=== PATIENT | female | born 1950 | race Caucasian/White ===

== ENCOUNTER → 2019-11-10 11:41 | Outpatient (CLI) | payer MEDICARE, SELFPAY ==
--- NOTE | ~2019-11-10 | XR_ITS ---
XR lumbar spine 2-3V DATE: 11/10/2019 12:21 INDICATION: Low back pain. Osteoporosis. TECHNIQUE: Standing AP, lateral and coned lateral lumbosacral views COMPARISON: None FINDINGS: There is prominent diffuse osteopenia. There is levoscoliosis of the thoracolumbar spine. The included lower thoracic and lumbar pedicles are intact. No fracture or bone destruction is eviden t. Lumbar and lumbosacral interspaces appear relatively well preserved. The sacroiliac joints are intact. Bilateral iliac artery stents. IMPRESSION: Prominent osteopenia Levoscoliosis Reviewed, dictated and finalized at location B.
== END ==
DX: M54.5 Low back pain (principal); M81.0 Age-related osteoporosis without current pathological fracture; M85.88 Other specified disorders of bone density and structure, other site
CPT/HCPCS: 72100

== ENCOUNTER 2020-08-27 21:47 | Emergency (ER) | payer MEDICARE, SELFPAY ==
[2020-08-27] VITALS (8 sets, daily range): BP systolic 93–113; BP diastolic 56–73; PULSE 54–71; RESP 16–18; TEMP 36.4; O2SAT 98
--- NOTE | ~2020-08-27 | XR_ITS ---
EXAMINATION: XR chest 2V DATE: 08/27/2020 22:27 INDICATION: Weakness and confusion TECHNIQUE: AP and lateral views of the chest are obtained. COMPARISON: None available FINDINGS: The lungs are hyperinflated but free of acute opacities. There is no pleural effusion or pn eumothorax. The cardiomediastinal silhouette is normal. There is mild thoracic spondylosis. IMPRESSION: 1. No acute cardiopulmonary abnormality. Reviewed, dictated and finalized at location A.
--- NOTE | 2020-08-27 22:04 | ECG_ITS ---
Measurements Intervals [place] Rate: 64 P: 78 MD: 143 QRS: 70 QRSD: 85 T: 65 QT: 381 QTc: 394 Interpretive Statements SINUS RHYTHM BASELINE ARTIFACT- I, II, AVR, AVL NORMAL ECG Electronically Signed On 08-28-2020 6:01:20 CDT by Shai Garcia D.O.
[2020-08-27 22:22] LABS: Basophils Absolute Auto 0.1 K/mm3 (0.0-0.1); Basophils Percent Auto 0.9 % (0.2-1.2); Eosinophils Absolute Auto 0.2 K/mm3 (0-0.3); Eosinophils Percent Auto 3.1 % (0-4.4); Hemoglobin 14.3 g/dL (12.0-15.0); Immature Granulocyte Absolute 0.02 K/mm3 (0.00-0.031); Immature Granulocyte Percent A 0.3 % (0-0.5); Lymphocytes Absolute Auto 3.12 K/mm3 (0.9-3.2); Lymphocytes Percent Auto 46.2 % (18.3-44.2); Mean Corpuscular HGB Conc 33.3 g/dl (32-36); Mean Corpuscular Hemoglobin 32.1 pg (26-34); Mean Corpuscular Volume 96.6 fl (80-100); Mean Platelet Volume 11.4 fl (7.4-10.4); Monocytes Absolute Auto 0.6 K/mm3 (0.1-0.6); Monocytes Percent Auto 9.5 % (2.6-8.5); Neutrophils Absolute Auto 2.7 K/mm3 (1.3-6.7); Platelet Count Result 176 k/mm3 (150-375); Red Blood Count 4.45 M/mm3 (4.2-5.4); Red Cell Distribution Width 12.6 % (11.5-14.5); White Blood Count 6.8 K/mm3 (4.5-10.0)
[2020-08-27 22:35] LABS: Alanine Aminotransferase 15 U/L (4-35); Albumin Level 4.3 g/dL (3.5-5.1); Alkaline Phosphatase 63 U/L (38-126); Anion Gap 7 mmol/L (8-16); Aspartate Amino Transferase 28 U/L (14-36); Bilirubin,Total 0.3 mg/dL (0.2-1.3); Blood Urea Nitrogen 16 mg/dL (7-17); Calcium 9.9 mg/dL (8.4-10.2); Carbon Dioxide 26 mmol/L (22-30); Chloride 103 mmol/L (98-107); Estimated CRCL calculation 53 ml/min; Estimated Glomerular Filt Rate > 60; Glucose 104 mg/dL (65-105); Potassium 4.3 mmol/L (3.4-5.0); Sodium 136 mmol/L (137-145)
[2020-08-27] MEDS: ALPRAZolam (*CRX) 0.25 MG TABLET 0.5 MG PO (23:39)
[2020-08-27] MEDS: SODIUM CHLORIDE 0.9% IV 1,000 ML 999 ML IV CONT (23:39)
--- NOTE | 2020-08-27 23:47 | ED.GENADULT ---
HPI - General Adult General Chief complaint: Recheck/Abnormal Lab/Rx Stated complaint: Low cortisol, low sodium, don't feel well Time Seen by Provider: 08/27/20 23:09 History of Present Illness HPI narrative: Patient is a 69-year-old female who presents ER with the chief complaint of just not feeling well. This has been ongoing feeling for the last month or more. She has been seeing multiple doctors including rn ante partum and other specialist at [facility]. She has been found to have a low cortisol level and occasionally a low sodium level. Patient reports she feels like she is just dragging her feet across the ground due to to profound weakness. She was surprised to find out that her sodium level was 134 last week and was concerned that she had dropped rapidly from 138. Patient reports that she has chronically low blood pressure which concerns her and she does not take her anxiety medication. She is onwelhcxg-bozk-knm drop her pressure too low and often just puts her to sleep. She is having no fevers or chills or sweats. No chest pressure or abdominal pain. She has been without urinary frequency or urgency. No diarrhea or constipation. No aggravating or alleviating factors for her generalized weakness. Related Data Allergies Allergy/AdvReac Type Severity Reaction Status Date / Time aspirin Allergy Unknown GI Distress Verified 02/11/18 11:49 NSAIDS (Non-Steroidal Allergy Unknown GI Distress Verified 02/11/18 11:49 Anti-Inflamma Review of Systems Review of Systems: All systems reviewed & are unremarkable except as noted in HPI and below Constitutional: Constitutional: Denies chills, Denies fever(s) and Reports weakness Cardiovascular: Cardiovascular: Denies chest pain and Denies radiating jaw, neck or arm pain Respiratory: Respiratory: Denies cough and Denies dyspnea Gastrointestinal: Gastrointestinal: Denies abdominal pain, Denies diarrhea, Denies nausea and Denies vomiting Genitourinary: Genitourinary: Denies nocturia and Denies dysuria [facility] Past Medical History Medical History (Updated 08/28/20 @ 00:02 by Ismael Shook MD) GERD (gastroesophageal reflux disease) Hepatitis C Iliac vein stenosis, left Iliac vein stenosis, right Irritable bowel syndrome Migraines Family History Family History (Updated 02/11/18 @ 11:54 by DOCTOR UNKNOWN) Mother Family history of Parkinson's disease Father Patient's father is Other Family history of cardiovascular disease Family history of malignant neoplasm Family history of tuberculosis Social History Social History (Updated 08/28/20 @ 00:01 by Ismael Shook MD) Alcohol intake: current Exam Narrative: Exam Narrative: GENERAL: Well-appearing, well-nourished, and in no acute distress. HEAD: Normocephalic, atraumatic. CHEST: Clear to auscultation. No respiratory distress. HEART: Regular rate and rhythm. Normal peripheral pulses. ABDOMEN: Soft, nontender, nondistended. EXTREMITIES: Normal range of motion. Trace edema. SKIN: Warm, dry, no rash. NEURO: Alert and oriented x3. PSYCH: Perseverates on aspects of her illness and seems anxious but denies anxiety. Course Course Emergency Course: Patient starting to feel the effects of Xanax. She reports she gets crampy abdominal pain that makes her anxious but does not feel her symptoms are totally related to anxiety. She is being hydrated her lab work is unremarkable. Urine shows no evidence of infection. She will be discharged home and can follow-up with her primary care doctor and with her other physicians were working her up. Patient brought recent lab work from July that showed a normal TSH and free T4 as well. Vital Signs Vital signs: Vital Signs Temperature 97.5 F L 08/27/20 21:56 Pulse Rate 71 08/27/20 21:56 Respiratory Rate 16 08/27/20 21:56 Blood Pressure 95/60 L 08/27/20 21:56 Pulse Oximetry 98 08/27/20 21:56 Temperature 97.5 F L 08/27/20 21:56
[2020-08-27 23:54] LABS: Add Urine Microscopic? YES; Appearance Urine Clear (Clear); Bilirubin Urine Negative (Negative); Blood Urine 1+ (Negative); Color Urine Straw (Yellow); Glucose Urine UA Negative (Negative); Ketones Urine Negative (Negative); Leukocyte Esterase Ur Negative LEU/UL (Negative); Mucus Urine Rare /lpf; Nitrate Urine Negative (Negative); Protein Urine Negative (Negative); RBC Urine 0-2 /hpf (0-2); Specific Grav Ur 1.009 (1.001-1.035); Squamous Epithelial Cell Urine Rare /hpf (Few); Urobilinogen Urine Negative mg/dL (<2.0); WBC Urine 0-3 /hpf
[2020-08-28] VITALS: BP 115/71; O2SAT 98
[2020-08-28 00:01] VITALS: O2SAT 98
[2020-08-28 00:15] VITALS: O2SAT 100
[2020-08-28 00:16] VITALS: BP 110/67; O2SAT 100
[2020-08-28 00:40] VITALS: BP 110/67; PULSE 58; RESP 18; O2SAT 99
== END 2020-08-28 00:40 | disposition home or self-care (01) ==
PROVIDERS: Emergency Medicine; Emergency Provider Emergency Medicine
DX: R53.1 Weakness (principal); K21.9 Gastro-esophageal reflux disease without esophagitis; Z86.19 Personal history of other infectious and parasitic diseases; K58.9 Irritable bowel syndrome, unspecified
CPT/HCPCS: 36415; 71046; 80053; 81001; 85025; 93005; 96360; 99283; A9270; J7030

== ENCOUNTER 2021-09-20 13:06 | Outpatient (CLI) | payer MEDICARE, SELFPAY ==
--- NOTE | ~2021-09-20 | MMUS_ITS ---
EXAMINATION: MM diagnostic haritha BI w chato, US breast LT complete HISTORY: Swelling and pain left axilla TECHNIQUE: Additional 3-D tomosynthesis images of the breasts were performed and synthetic 2-D images were generated. CAD analysis was submitted and interpreted. High resolution complete left breast ult rasound was performed. COMPARISON: 05/02/2017 BREAST PARENCHYMAL COMPOSITION: Breast composed of scattered areas of fibroglandular density FINDINGS: MAMMOGRAPHIC FINDINGS: There are no suspicious masses, calcifications or architectural distortion in either breast to sugges t malignancy. The breast are stable. ULTRASOUND: Complete US of all 4 quadrants of the the left breast and retroareolar region was reviewed. There are mildly prominent subareolar ducts. There are normal-appearing lymph nodes in the left axilla corresp onding to the area of palpable concern, largest measuring 8 mm. IMPRESSION: 1. No evidence for malignancy in either breast. 2. Routine yearly screening mammogram and regular clinical breast examination are recommended. BI-RADS Category 2: Benign finding(s). Reviewed, dictated and finalized at location A. IMPRESSION: 1. No evidence for malignancy in either breast. 2. Routine yearly screening mammogram and regular clinical breast examination a re recommended. BI-RADS Category 2: Benign finding(s).
== END 2021-09-20 13:07 | disposition home or self-care (01) ==
PROVIDERS: Visit Provider Nurse Practitioner Obstetrics & Gynecology
DX: N64.4 Mastodynia (principal)
CPT/HCPCS: 76641; 77062; 77066; G0279

== ENCOUNTER 2023-06-12 14:47 | Outpatient (CLI) | payer MEDICARE, SELFPAY ==
--- NOTE | ~2023-06-12 | MR_ITS ---
EXAMINATION: MR cervical spine wo con DATE: 06/12/2023 15:43 INDICATION: Neck pain. TECHNIQUE: Magnetic resonance imaging (MRI) of the cervical spine was performed without intravenous c ontrast. COMPARISON: Cervical spine MRI 08/16/2021 FINDINGS: Bone alignment is normal. Vertebral body heights are normal. There is mildly decreased disc height at C3-C4 and C4-C5. The spinal cord signal intensity is normal. The following disc levels are specifically discussed: C2-C3: There is a central protrusion. There is no uncovertebral joint osteoarthritis. There is mild b ilateral facet joint osteoarthritis. There is no neural foraminal stenosis. There is no central canal stenosis. C3-C4: There is a central protrusion. There is mild left uncovertebral joint osteoarthritis. There is mild bilateral facet joint osteoarthritis. There is mild left neural foraminal stenosis. There is mi ld central canal stenosis. C4-C5: There is a left central extrusion. There is moderate right and severe left uncovertebral joint osteoarthritis. There is mild bilateral facet joint osteoarthritis. There is mild right and moderate left neural foraminal stenosis. There is mild central canal stenosis. C5-C6: The disc does not extend beyond the endplate margin. There is moderate bilateral uncovertebral joint osteoarthritis. There is mild bilateral facet joint osteoarthritis. There is moderate right an d mild left neural foraminal stenosis. There is mild central canal stenosis. C6-C7: There is a central protrusion. There is mild bilateral uncovertebral joint osteoarthritis. The re is moderate bilateral facet joint osteoarthritis. There is no neural foraminal stenosis. There is mild central canal stenosis. C7-T1: The disc does not extend beyond the endplate margin. There is no uncovertebral joint osteoarth ritis. There is severe bilateral facet joint osteoarthritis. There is mild bilateral neural foraminal stenosis. There is no central canal stenosis. IMPRESSION: 1. Moderate cervical spondylosis, mildly worsened from 08/16/2021. Reviewed, dictated and finalized at location E. LE BACKER
== END 2023-06-12 14:48 ==
LOC: MICIMG 14:49
PROVIDERS: PCP Nurse Practitioner; Visit Provider Physician Assistant
DX: M47.892 Other spondylosis, cervical region (principal)
CPT/HCPCS: 72141

== ENCOUNTER 2023-10-21 08:03 | Outpatient (CLI) | payer MEDICARE, SELFPAY ==
--- NOTE | ~2023-10-21 | XR_ITS ---
XR ribs LT 2V w CXR 2V Ordering provider: Parish Camp APRN History: . LEFT ANTERIOR RIB PAIN UNDER BREAST X3 WKS, COUGH . Comparison: August 27, 2020 FINDINGS: BONES: No acute rib fracture. MEDIASTINUM: The cardiac silhouette is not enlarged. LUNGS: No effusion or pneumothorax. Atelectasis in the middle lobe is noted. Possible atelectasis in the lingula. Underlying emphysematous changes. OTHER: No free air under the diaphragm. IMPRESSION: 1. No acute osseous abnormality left ribs and chest 2. Atelectatic changes in the middle lobe otherwise, No acute cardiopulmonary findings. Reviewed, dictated and finalized at location A.
== END 2023-10-21 08:04 | disposition home or self-care (01) ==
PROVIDERS: PCP Nurse Practitioner; Visit Provider Nurse Practitioner
DX: R07.81 Pleurodynia (principal); R91.8 Other nonspecific abnormal finding of lung field
CPT/HCPCS: 71046; 71100

== ENCOUNTER 2023-12-22 10:49 | Outpatient (CLI) | payer MEDICARE, SELFPAY ==
--- NOTE | ~2023-12-22 | CT_ITS ---
CT soft tissue neck wo con Ordering provider: Parish Camp APRN History: 73 years Female with . 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 Comparison: None. Technique: CT soft tissues neck was performed without contrast. . Automated exposure control and ite rative reconstruction technique were employed. The dose-length product was 378.86 mGy-cm. Findings: LOWER HEAD: The visualized brain parenchyma, optic globes/orbits and mastoids are normal. The visua lized paranasal sinuses are well aerated. SALIVARY GLANDS: Normal. THYROID: Hypodensity in the right lobe measuring 1 cm. Ultrasound evaluation advised. SUPRAHYOID DEEP SPACES: Lymph nodes are seen in the parapharyngeal spaces with the largest on the rig ht measures 6 mm. CAROTID ARTERIES: Normal. JUGULAR VEINS: Normal. TONSILS: Normal. ORAL CAVITY: Partially obscured by dental amalgam but normal as visualized. PHARYNX, LARYNX AND TRACHEA: Patent and normal. No prevertebral soft tissue swelling. SUPERFICIAL SOFT TISSUES: Normal. No lymphadenopathy or neck mass. THORACIC INLET/VISUALIZED UPPER CHEST: Normal. SKELETAL: Age appropriate degenerative changes. IMPRESSION: 1. Highly suggestive right thyroid nodule. Ultrasound evaluation advised. Otherwise, No definite abn ormality. Reviewed, dictated and finalized at location A. IMPRESSION: 1. Highly suggestive right thyroid nodule. Ultrasound evaluation advised. Othe rwise, No definite abnormality.
--- NOTE | ~2023-12-22 | CT_ITS ---
Non-contrast CT scan of the Abdomen Clinical indication: Left upper quadrant pain Technique: 2.5 mm axial scans were obtained through the abdomen without intravenous or oral contrast . Dose reduction technique was used on this scan by utilizing automated exposure control and iterativ e reconstruction technique. The dose-length product (DLP) was 263.03 mGy-cm. Findings: Images through the lung bases reveal 3 mm left basilar pulmonary nodule (axial image 22).. There is no evidence of renal or ureteral calculi. The kidneys and the ureters are nondilated. The liver, spleen, pancreas, gallbladder, and adrenals appear normal. There are atherosclerotic calci fications of the aorta. Bilateral common iliac vein stents are present. Visualized bowel loops are unremarkable. No ascites. Impression: No acute abnormality. Bilateral common iliac vein stents. 3 mm left basilar pulmonary nodule. According to Fleischner Society criteria, for a low-risk patient, no further follow-up required. For a high-risk patient, consider 12 month follow-up CT. Reviewed, dictated and finalized at location . Impression: No acute abnormality. Bilateral common iliac vein stents. 3 mm left basilar pulmonary nodule. According to Fleischner Society criteria, f or a low-risk patient, no further follow-up required. For a high-risk patient, consider 12 month follow-up CT.
== END 2023-12-22 10:50 | disposition home or self-care (01) ==
LOC: MICIMG 10:50
PROVIDERS: PCP Nurse Practitioner; Visit Provider Nurse Practitioner
DX: Q89.2 Congenital malformations of other endocrine glands (principal); E04.1 Nontoxic single thyroid nodule; R91.1 Solitary pulmonary nodule
CPT/HCPCS: 70490; 74150

== ENCOUNTER 2023-12-26 11:32 | Outpatient (CLI) | payer MEDICARE, SELFPAY ==
--- NOTE | ~2023-12-26 | US_ITS ---
EXAMINATION: US thyroid DATE: 12/26/2023 11:53 INDICATION: Nontoxic single thyroid nodule. TECHNIQUE: Multiple ultrasound images of the thyroid were obtained. COMPARISON: None. FINDINGS: The right thyroid lobe measures 4.8 x 1.9 x 1.8 cm. The left thyroid lobe measures 4.5 x 1.3 x 1.7 c m. In the right thyroid lobe, there is a 4 mm nodule. In the left thyroid lobe, there is a 7 mm miguel d, hypoechoic, wider than tall nodule with ill-defined margin without echogenic foci (TI-RADS TR4). I n the left thyroid lobe, there is a 4 mm nodule. IMPRESSION: 1. Small thyroid nodules, likely not clinically significant. No follow-up is needed. Reviewed, dictated and finalized at location A. IMPRESSION: 1. Small thyroid nodules, likely not clinically significant. No follow-up is ne eded.
== END 2023-12-26 11:33 | disposition home or self-care (01) ==
PROVIDERS: PCP Nurse Practitioner; Visit Provider Nurse Practitioner
DX: E04.2 Nontoxic multinodular goiter (principal)
CPT/HCPCS: 76536

== ENCOUNTER 2024-04-27 08:32 | Emergency (ER) | payer MEDICARE, SELFPAY ==
--- NOTE | ~2024-04-27 | XR_ITS ---
EXAMINATION: XR chest 2V DATE: 04/27/2024 09:16 INDICATION: Shortness of breath. TECHNIQUE: Frontal and lateral views of the chest were obtained on 3 radiographs. COMPARISON: Chest 2 view 10/21/2023, CT abdomen 12/22/2023 FINDINGS: There is no pneumonia, pleural effusion, or pneumothorax. The heart size is normal. IMPRESSION: 1. No acute cardiopulmonary disease. Reviewed, dictated and finalized at location B. ED MILK MASHER
[2024-04-27 08:40] VITALS: BP 131/84; PULSE 77; RESP 18; TEMP 36.4; O2SAT 99
--- NOTE | 2024-04-27 08:53 | ECG_ITS ---
Test Date: 2024-04-27 08:58:57 Measurements Intervals [place] Rate: 75 P: 87 OK: 138 QRS: 66 QRSD: 90 T: 67 QT: 375 QTc: 420 Interpretive Statements SINUS RHYTHM LOW QRS VOLTAGE IN EXTREMITY LEADS [QRS DEFLECTION < 0.5 mV IN LIMB LEADS] NONSPECIFIC ST DEPRESSION AND T-WAVE ABNORMALITIES No previous ECG available for comparison Electronically Signed On 04-27-2024 10:50:02 [employer] by Torres Quispe M.D.
--- NOTE | 2024-04-27 08:53 | ED_ITS ---
HPI - General Adult General Chief complaint: Upper Respiratory Infection Stated complaint: cough, congestion sick since august Time Seen by Provider: 04/27/24 08:39 History of Present Illness HPI narrative: 73-year-old female presenting to the emergency department for evaluation for multiple issues that she reports are chronic. Patient states that since August she has had issues with a burning mucous that runs from her nose down her throat into her chest. Patient reports that she has had follow-up with ENT in no specific etiology was identified. Patient reports that she is having some intermittent chest pain. Patient reports that her symptoms have been worsening over the last 3 days but she was unable to present to the emergency department. Patient is very anxious appearing. Patient is requesting referrals to ENT and pulmonology. Related Data Home Medications ?Medication ?Instructions ?Recorded ?Confirmed ?Last Taken ?Type Bifidobacterium infantis 4 mg 4 mg PO DAILY 10/18/21 12/12/23 Unknown History capsule (Align (B.infantis)) calcium carbonate (Calcium 600) 600 mg PO BID 10/18/21 12/12/23 Unknown History cholecalciferol (vitamin D3) 125 125 mcg PO DAILY 10/18/21 12/12/23 Unknown History mcg (5,000 unit) capsule clopidogrel 75 mg tablet (Plavix) 75 mg PO DAILY 10/18/21 12/12/23 Unknown History diclofenac sodium 1 % topical gel 2 g topical QID 10/18/21 12/12/23 Unknown History (Voltaren Arthritis Pain) hydrocodone 5 mg-acetaminophen 325 1 tablet PO Q6H PRN 10/18/21 12/12/23 Unknown History mg tablet ggsqxdeu-olfy-[id number] 8 mg-folic 400 1 tablet PO DAILY 10/18/21 12/12/23 Unknown History mcg-K 50 mcg-lutein 300 mcg tablet (Multivitamin Women 50 Plus) omeprazole 20 mg capsule,delayed 20 mg PO BID 10/18/21 12/12/23 Unknown History release bupropion HCl 150 mg 24 hr tablet, 150 mg PO DAILY 06/18/22 12/12/23 Unknown History extended release Allergies Allergy/AdvReac Type Severity Reaction Status Date / Time pregabalin (From Lyrica) Allergy Severe Hypertensio Verified 04/27/24 08:34 n celecoxib (From Celebrex) Allergy Intermediate Abdominal Verified 04/27/24 08:34 Pain duloxetine (From Cymbalta) Allergy Intermediate Unknown Verified 04/27/24 08:34 aspirin Allergy Unknown GI Distress Verified 04/27/24 08:34 NSAIDS (Non-Steroidal Allergy Unknown GI Distress Verified 04/27/24 08:34 Anti-Inflamma sertraline (From Zoloft) AdvReac Severe Hypertensio Verified 04/27/24 08:34 n lidocaine AdvReac Intermediate Other Verified 04/27/24 08:34 Review of Systems 2 Review of Systems: All systems reviewed & are unremarkable except as noted in HPI and below [facility] Past Medical History Medical History (Updated 04/27/24 @ 10:50 by Rogelio Anne MD) BMI 24.0-24.9, adult History of hepatitis C Iliac vein stenosis, right Iliac vein stenosis, left Migraines Irritable bowel syndrome GERD (gastroesophageal reflux disease) Hepatitis C Family History Family History (Updated 03/19/24 @ 10:09 by GAGE Palomino) Mother Family history of Parkinson's disease Father No problems noted. Sibling No problems noted. Other Family history of cardiovascular disease Family history of malignant neoplasm Family history of tuberculosis Social History Social History (Updated 03/19/24 @ 10:10 by Yue Nilesen Kai) Smoking status: Never smoker Second hand tobacco smoke exposure: Yes Alcohol intake: never Substance use: never Substance use type: does not use Do You Feel Safe in your Home?: Yes Lack of Transportation: No Lack of Food: Never True Current Housing: I Have Housing Concerned About Future Housing: No Difficulty Paying Gas/Electric Bills: No Difficulty Paying for Meds: No Currently Unemployed: No Education: Associate Degree Difficulty w/ Childcare or Family Care: No Living arrangements: with family Occupation/Education: retired Additional occupation/education comments: [employer] Gender identity (if verbalized by the patient): Female Exam 2 Narrative: APPEARANCE: Well-appearing with anxious affect HEAD: normocephalic, atraumatic. EYES: PERRLA/EOMI, conjunctivae clear. NOSE: Normal no drainage EARS:TMS clear with good light reflex. THROAT: Pharynx clear, no exudate. NECK: Supple. No adenopathy, no masses. RESPIRATORY: Airway patent, respirations nonlabored. Clear to auscultation bilaterally, no rales, rhonchi, wheezing. CARDIOVASCULAR: Regular rate and rhythm without murmurs rubs or gallops. ABDOMINAL: Soft, nontender, nondistended, normal bowel sounds MUSCULOSKELETAL: Moves all extremities. Strength/ROM intact, No edema, No calf tenderness. NEURO: Alert. Cranial nerves II through XII intact. Good gait. Good coordination SKIN: Warm, dry. Normal Color PSYCHIATRIC: Anxious affect Course Vital Signs Vital signs: Vital Signs Temperature 97.6 F 04/27/24 08:40 Pulse Rate 77 04/27/24 08:40 Respiratory Rate 18 04/27/24 08:40 Blood Pressure 131/84 04/27/24 08:40 Pulse Oximetry 99 04/27/24 08:40 Oxygen Delivery Room Air 04/27/24 08:40 Temperature 97.6 F 04/27/24 08:40 Pulse Rate 89 04/27/24 11:04 Respiratory Rate 16 04/27/24 11:04 Blood Pressure 113/77 04/27/24 11:04 Pulse Oximetry 100 04/27/24 11:04 Oxygen Delivery Room Air 04/27/24 08:40 Medical Decision Making [facility] Narrative Medical decision making narrative: 73-year-old female presents to the emergency department for evaluation for worsening nasal congestion. Patient was afebrile with no leukocytosis and hemoglobin of 13.9. Patient did have a sodium 122 and a potassium of 3.1. Patient was positive for influenza A. Patient did feel well enough for discharge to home. Patient was encouraged to have close follow-up with her primary care physician. All questions and concerns were addressed. Differential Diagnosis Differential Diagnosis: COVID, RSV, influenza Vital Signs Vital Signs: Vital Signs Temperature 97.6 F 04/27/24 08:40 Pulse Rate 77 04/27/24 08:40 Respiratory Rate 18 04/27/24 08:40 Blood Pressure 131/84 04/27/24 08:40 Pulse Oximetry 99 04/27/24 08:40 Oxygen Delivery Room Air 04/27/24 08:40 Temperature 97.6 F 04/27/24 08:40 Pulse Rate 89 04/27/24 11:04 Respiratory Rate 16 04/27/24 11:04 Blood Pressure 113/77 04/27/24 11:04 Pulse Oximetry 100 04/27/24 11:04 Oxygen Delivery Room Air 04/27/24 08:40 Lab Data 04/27/24 08:58 04/27/24 08:58 Labs: Lab Results 04/27/24 Range/Units 08:58 WBC 4.1 L (4.5-10.0) K/mm3 RBC 4.32 (4.2-5.4) M/mm3 Hgb 13.9 (12.0-15.0) g/dL Hct 39.8 (37.0-47.0) % MCV 92.1 (80-100) fl MCH 32.2 (26-34) pg MCHC 34.9 (32-36) g/dl RDW 12.4 (11.5-14.5) % Plt Count 182 (150-375) k/mm3 MPV 10.8 H (7.4-10.4) fl Immature Gran % (Auto) 0.5 (0-0.5) % Neut % (Auto) 58.1 (45.5-73.1) % Lymph % (Auto) 24.0 (18.3-44.2) % [place] % (Auto) 16.4 H (2.6-8.5) % Eos % (Auto) 0.5 (0-4.4) % Baso % (Auto) 0.5 (0.2-1.2) % Lymph # (Auto) 0.98 (0.9-3.2) K/mm3 [place] # (Auto) 0.7 H (0.1-0.6) K/mm3 Eos # (Auto) 0.0 (0-0.3) K/mm3 Baso # (Auto) 0.0 (0.0-0.1) K/mm3 Abs Immat Gran (auto) 0.02 (0.00-0.031) K/mm3 Absolute Neuts (auto) 2.4 (1.3-6.7) K/mm3 Absolute Nucleated RBC 0.000 (0.0-0.012) K/mm3 Nucleated RBC % 0.0 (0.0-0.2) % PT 14.2 (11.1-14.7) Seconds INR 1.1 APTT 27.7 (22.3-36.8) Seconds Sodium 122 L (137-145) mmol/L Potassium 3.1 L (3.4-5.0) mmol/L Chloride 86 L (98-107) mmol/L Carbon Dioxide 25 (22-30) mmol/L Anion Gap 11 (4-12) mmol/L BUN 10 D (7-17) mg/dL Creatinine 0.69 L (0.7-1.0) mg/dL Estim Creat Clear Calc 58 ml/min Estimated GFR > 60 (59 - ) Glucose 111 H (65-110) mg/dL Calcium 8.8 (8.4-10.2) mg/dL Total Bilirubin 0.6 (0.2-1.3) mg/dL AST 42 H (14-36) U/L ALT 23 (6-35) U/L Alkaline Phosphatase 94 (38-126) U/L Troponin I < 0.012 (0.000-0.034) ng/mL NT-Pro-B Natriuret Pep 124 H (19.9-100) pg/mL Total Protein 7.0 (6.3-8.2) g/dL Albumin 4.3 (3.5-5.1) g/dL Influenza A (RT-PCR) Positive A (Negative) Influenza B (RT-PCR) Negative (Negative) RSV (RT-PCR) Negative (Negative) SARS-CoV-2 RNA (RT-PCR) Negative (Negative) Discharge Plan Discharge Clinical Impression: Influenza A Patient Disposition: Home, Self-Care Condition: Stable Instructions: Antibiotic Form, Influenza (ED) Additional Instructions: Tylenol and ibuprofen for fever and body aches. Albuterol inhaler as needed for wheezing and shortness breath. Tessalon Perles for cough. Continue have close follow-up with her primary care physician. Patient Language: Martiniquais Prescriptions: New benzonatate 100 mg capsule 100 mg PO TID PRN (Reason: cough) Qty: 14 0RF albuterol sulfate 90 mcg/actuation HFA aerosol inhaler 1 puff inhalation QID Qty: 6.7 0RF No Action clopidogrel [Plavix] 75 mg tablet 75 mg PO DAILY omeprazole 20 mg capsule,delayed release(DR/EC) 20 mg PO BID Align (B.infantis) 4 mg capsule 4 mg PO DAILY calcium carbonate [Calcium 600] 600 mg calcium (1,500 mg) tablet 600 mg PO BID cholecalciferol (vitamin D3) 125 mcg (5,000 unit) capsule 125 mcg PO DAILY Multivitamin Women 50 Plus 8 mg iron-400 mcg-300 mcg tablet 1 tablet PO DAILY hydrocodone-acetaminophen 5-325 mg tablet 1 tablet PO Q6H PRN diclofenac sodium [Voltaren Arthritis Pain] 1 % gel 2 g topical QID Rx Instructions: apply to single elbow, wrist or hand; for hand includes palm/fingers/back of hand bupropion HCl 150 mg tablet extended release 24 hr 150 mg PO DAILY ondansetron HCl 4 mg tablet 2 mg PO Q8H Qty: 30 1RF hydrochlorothiazide 12.5 mg capsule 12.5 mg PO DAILY Qty: 30 5RF sumatriptan succinate 100 mg tablet 100 mg PO ONCE PRN (Reason: migraine headache) Qty: 9 2RF Follow-up/Referrals: Parish Camp APRN [Primary Care Provider] -
[2024-04-27 09:09] LABS: Basophils Percent Auto 0.5 % (0.2-1.2); Eosinophils Percent Auto 0.5 % (0-4.4); Hematocrit 39.8 % (37.0-47.0); Hemoglobin 13.9 g/dL (12.0-15.0); Immature Granulocyte Absolute 0.02 K/mm3 (0.00-0.031); Immature Granulocyte Percent A 0.5 % (0-0.5); Lymphocytes Absolute Auto 0.98 K/mm3 (0.9-3.2); Mean Corpuscular HGB Conc 34.9 g/dl (32-36); Mean Corpuscular Hemoglobin 32.2 pg (26-34); Mean Corpuscular Volume 92.1 fl (80-100); Mean Platelet Volume 10.8 fl (7.4-10.4); Monocytes Absolute Auto 0.7 K/mm3 (0.1-0.6); Monocytes Percent Auto 16.4 % (2.6-8.5); Neutrophils Absolute Auto 2.4 K/mm3 (1.3-6.7); Neutrophils Percent Auto 58.1 % (45.5-73.1); Platelet Count Result 182 k/mm3 (150-375); Red Blood Count 4.32 M/mm3 (4.2-5.4); Red Cell Distribution Width 12.4 % (11.5-14.5); White Blood Count 4.1 K/mm3 (4.5-10.0)
[2024-04-27 09:21] LABS: INR 1.1; Prothrombin Time 14.2 Seconds (11.1-14.7)
[2024-04-27 09:24] LABS: Partial Thromboplastin Time 27.7 Seconds (22.3-36.8)
[2024-04-27 09:25] LABS: Alanine Aminotransferase 23 U/L (6-35); Albumin Level 4.3 g/dL (3.5-5.1); Alkaline Phosphatase 94 U/L (38-126); Anion Gap 11 mmol/L (4-12); Aspartate Amino Transferase 42 U/L (14-36); Bilirubin,Total 0.6 mg/dL (0.2-1.3); Blood Urea Nitrogen 10 mg/dL (7-17); Calcium 8.8 mg/dL (8.4-10.2); Carbon Dioxide 25 mmol/L (22-30); Chloride 86 mmol/L (98-107); Estimated CRCL calculation 58 ml/min; Estimated Glomerular Filt Rate > 60; Glucose 111 mg/dL (65-110); Potassium 3.1 mmol/L (3.4-5.0); Sodium 122 mmol/L (137-145)
[2024-04-27 09:33] LABS: NT Pro B Type Natriuretic Pept 124 pg/mL (19.9-100)
[2024-04-27 09:36] LABS: Troponin I < 0.012 ng/mL (0.000-0.034)
[2024-04-27 09:45] LABS: Influenza A QL RT-PCR Positive (Negative); Influenza B QL RT-PCR Negative (Negative); RSV RNA, RT-PCR Negative (Negative); SARS-CoV-2 RNA PCR Negative (Negative)
[2024-04-27 10:11] VITALS: BP 104/68; PULSE 63; RESP 16; O2SAT 95
[2024-04-27 11:04] VITALS: BP 113/77; PULSE 89; RESP 16; O2SAT 100
--- OUTSIDE RECORDS SUMMARY | 2024-04-29 16:16 | XMS_ITS | Clinical Summary ---
Author Organization [facility] Address [address] [place] [address] Care Team Providers Care Wig Dresser Name Role Phone Tee Chung DO Primary Care Provider [phone] Source Comments [facility],non-owned Affiliates and Associated Physician Practices is amultiple site organization consisting of ambulatory clinics and hospital sitesin [place], [place], [place] and [place]. This disclosure is being madepursuant to the Care Everywhere program and may not contain all information available regarding this patient. Last updated 17.[facility] Allergies Active Allergy Reactions Criticality Noted Date Comments Aspirin Nausea and/or Vomiting Low 12/07/2013 Celecoxib GI Discomfort 08/08/2021 Peg-Electrolyte Soln Nausea and/or Vomiting 06/10/2018 Duloxetine Palpitations,Other High 11/04/2011 Flushing. Serotonin Syndrome Hydroxychloroquine Unknown 10/10/2015 Hydroxychloroquine Sulfate Nausea and/or Vomiting Low 11/04/2011 Modafinil Shortness of Breath High 11/04/2011 Nabumetone Unknown Low 11/04/2011 Fatigue Nsaids Nausea and/or Vomiting 06/10/2018 Gastritis Kdc:Milnacipran+Ci Pigment Blue 63 Nausea and/or Vomiting Low 11/04/2011 Milnacipran Unknown 10/10/2015 Sertraline Palpitations Low 11/04/2011 Sulindac Other 06/10/2018 Stomach burning - felt like ulcers Medications * Be aware that medications may not be up to date on this document. Alwaysverify current medications with the patient. Medication Sig Dispensed Refills Start Date End Date Status omeprazole (PRILOSEC) 20 MG capsule Take by mouth 2 times daily as needed 10/07/2017 Active SUMAtriptan (IMITREX) 100 MG tablet Take by mouth as needed Once at onset of migraine. May repeat in 2 hrs if needed. 11/21/2017 Active vitamin D3 (CHOLECALCIFEROL) 1000 UNIT capsule Take 6 (six) capsules by mouth once daily Active Multiple Vitamin (MULTIVITAMIN+ PO) Take by mouth once daily Active HYDROcodone-acetamino phen (NORCO) 7.5-325 MG tablet .5 tablet bid prn Active Magnesium Hydroxide (MILK OF MAGNESIA PO) Act nora lidocaine (XYLOCAINE) 5 % ointment APPLY SUFFICIENT AMOUNT TO AFFECT AREA DIRECTED 5 02/02/2018 Active ondansetron (Zofran) 4 MG tablet Take 1 (one) tablet by mouth every 6 hours as needed for Nausea/Vomiting Active Probiotic Product (ALIGN PO)Indications:28/10 Probiotic Take by mouth once daily Reasons: 28/10 Probiotic Active calcium 600 MG tablet Take 1 (one) tablet by mouth daily with food Active mometasone 0.1 % cream - AQUAPHOR ointment 50:50 CREAIndications:PRN left outer ear Apply to affected area 2 times daily Reasons: PRN left outer ear Active TOBRAMYCIN-DEXAMETHAS ONE OPIndications:PRN for left eye infection by Ophthalmic route 2 times daily Reasons: PRN for left eye infection Active Hypromellose (ARTIFICIAL TEARS OP) by Ophthalmic route once daily Active Polyethyl Glycol-Propyl Glycol (SM LUBRICATING TEARS OP)Indications:PRN by Ophthalmic route 3 times daily Reasons: PRN Active pimecrolimus (ELIDEL) 1 % creamIndications:Rash and other nonspecific skin eruption Apply to face twice a day. 30 days supply. 30 g 3 06/10/2018 Active diclofenac sodium (Voltaren) 1 % gel Active hydrOXYzine HCl (Atarax) 50 MG tablet Take 1 (one) tablet by mouth anxiety 11/28/2021 Active clopidogrel (Plavix) 75 MG tablet Take 1 (one) tablet by mouth every 24 hours 08/08/2021 Active Active Problems Problem Noted Date Diagnosed Date Groin pain 02/11/2022 Acute bilateral knee pain 09/17/2021 Breast swelling 08/06/2021 Traumatic incomplete tear of left rotator cuff 0 06/19/2021 Overview (04/17/2022): Last Assessment & Plan: Overall patient has done very well with outpatient physical therapy. She has near full range of motion. She no longer has capsular tightness. She is pleased with her response to therapy and the injection. She will transition to a home exercise program. She was provided a home exercise work sheet. She will follow-up with me as needed. Adrenal insufficiency 09/28/2020 Goiter 07/25/2020 Dermatochalasis of both upper eyelids 06/03/2019 Overview (04/17/2022): Last Assessment & Plan: Status post (s/p) bilateral blepharoplasty in 2007. Pt not bothered with appearance at this time. Pt ed re: option for referral to plastics. Varicose veins of other specified sites 02/23/20 19 09/27/2022 Muscle weakness (generalized) 11/24/2017 Tremors of nervous system 11/24/2017 Urge incontinence 04/26/2016 Vaginal atrophy 04/26/2016 Gastritis 11/20/2015 Tricuspid valve insufficiency 11/20/2015 Dizziness and giddiness 10/10/2015 Elevated rheumatoid factor 10/10/2015 Abnormal gait 09/18/2015 Abnormal involuntary movement 09/06/2015 Overview (04/17/2022): Abnormal involuntary movements Common migraine with intractable migraine 2015 Overview (04/17/2022): Chronic migraine without aura, intractable, without status migrainosus Mild cognitive disorder 09/06/2015 Overview (04/17/2022): Mild cognitive impairment with memory loss Degeneration of intervertebral disc of lumbar re gion 02/24/2015 Migraine headache 02/24/2015 Lumbar radiculopathy 02/24/2015 Fibrositis 08/21/2013 Overview (04/17/2022): FIBROMYALGIA Raynaud's phenomenon 08/21/2013 Overview (04/17/2022): RAYNAUD'S SYNDROME Fibromyalgia 03/01/2013 Viral hepatitis C 11/04/2011 Overview (06/10/2018): Overview: Treated and no virus present according to the patient Anxiety 11/04/2011 Osteoporosis 11/04/2011 Immunizations Name Administration Dates Next Due FLU VACCINE QUAD IIV4 PF ID 04/10/2016 INFLUENZA VACCINE 01/05/2018 Family History Medical History Relation Name Comments CAD (Coronary Artery Disease) Father Hypertension Father Cancer - Colon Maternal Aunt Cancer - Stomach Maternal Grandfather Colon polyps Maternal Grandfather Cancer - Breast Mother Osteoporosis Mother Diabetes - Type 2 Sister Relation Name Status Comments Father Maternal Aunt Maternal Grandfather Mother Alive Sister Social History Tobacco Use Types Packs/Day Years Used Date Smoking Tobacco: Every Day Cigarettes 0.3 15 Smokeless Tobacco: Never Tobacco Cessation:Ready to Q uit: Not Asked; Counseling Given: Not Answered Alcohol Use Standard Drinks/Week Comments Yes 0 (1 standard drink = 0.6 oz pur e alcohol) Rare Sex and Gender Information Value Date Recorded Sex Assigned at Not on file Gender Identity Not on file Sexual Orientation Not on file Last Filed Vital Signs Vital Sign Reading Time Taken Comments Blood Pressure 120/70 09/27/2022 1:17 PM CDT Pulse 71 05/18/2019 12:50 PM INVESTMENT UNDERWRITER Temperature 36.4 ??C (97.6 ??F) 09/27/2022 1:17 PM CD T Respiratory Rate 16 04/26/2018 2:26 PM INVESTMENT UNDERWRITER Oxygen Saturation 96% 05/18/2019 12:50 PM INVESTMENT UNDERWRITER Inhaled Oxygen Concentration - - Weight 58.8 kg (129 lb 9.6 oz) 09/27/2022 1:17 P M CDT Height 165.1 cm (5' 5 ) 09/27/2022 1:17 PM CDT Body Mass Index 21.57 09/27/2022 1:17 PM CDT Plan of Treatment Health Maintenance Due Date Last Done Comments BONE DENSITY TESTING 1950 COLOGUARD (AGES 45-75) - COLON CA SCREENING 1950 COLON MONITORING 1952 COLONOSCOPY - COLON CA SCREENING 1950 CT COLONOGRAPHY - COLON CA SCREENING 1950 Colorectal Cancer Screening 1950 FIT - COLON CA SCREENING 1950 FLEX SIG - COLON CA SCREENING 1950 LIPID TESTING 1950 MAMMOGRAM 1950 MEDICARE AWV ? 12 MONTHS 1950 DTAP/TDAP/TD VACCINES (1 - Tdap) 09/27/1971 PNEUMOCOCCAL VACCINE 50+ (1 of 2 - PCV) 09/27/1971 ZOSTER VACCINE (1 of 2) 2002 Respiratory Syncytial Virus (RSV) Vaccine Pt: or over 60 yrs (1 - Risk 60-74 years 1-dose series) 2012 COVID-19 VACCINE ( season) 2023 08/10/2022, 12/12/2021, 08/10/2021, Additional history exists INFLUENZA VACCINE (#1) 2023 2, 01/31/2021, 01/29/2019, Additional history exists DEPRESSION SCREENING 04/07/2024 HEPATITIS C SCREENING Completed 10/31/2015 , 09/08/2015, 11/04/2011 HEPATITIS B VACCINE Aged Out No longe r eligible based on patient's age to complete this topic HIB VACCINE Aged Out No longer eligi ble based on patient's age to complete this topic HPV VACCINE Aged Out No longer eligi ble based on patient's age to complete this topic MENINGOCOCCAL (Group B) VACCINE Aged Out No longer eligible based on patient's age to complete this topic MENINGOCOCCAL VACCINE Aged Out No chase rhonda eligible based on patient's age to complete this topic Procedures Procedure Name Priority Date/Time Associated Diagnosis Comments HEPATITIS C AB W/RFLX TO HCV RNA QN PCR Routine 09/08/2015 2:07 PM CDT from Last 3 Months or Most Recently Relevant to Health Maintenance Results * HEPATITIS C AB W/RFLX TO HCV RNA QN PCR (09/08/2015 2:07 PM CDT) Hepatitis C Virus RNA PCR Quantitative <15 NOT DETECTED <15 IU/mL [facility] Hepatitis C Virus RNA Log IU/mL <1.18 NOT DETECTED <1.18 Log IU/mL [facility]) Comment: Please note: There are several scenarios that may cause this combination of results. 1)Patient is not currently actively infected with HCV either because the patient has a resolved HCV infection or the patient has a false positive Ab test and was never infected with HCV. 2)A few patients with circulating anti-HCV antibodies that do not have detectable HCV RNA, may not have completely resolved the infection. These infrequently encountered patients could be carriers of the virus and should be managed according to the current Treatment Guidelines (J Hepatol, 2504-5302, ). Please correlate these findings with the patient's clinical history and any other diagnostic findings, including any evidence of liver dysfunction. See Note [facility]) Comment: The analytical performance characteristics of this assay have been determined by [employer]. The modifications have not been cleared or approved by the FDA. This assay has been validated pursuant to the CLIA regulations and is used for clinical purposes. ?? This test was performed using the ROMA(R)AmpliPrep/ ROMA(R)TaqMan(R)HCV Test,v2.0. For more information on this test, go to: http://education.[employer]/faq/IWW59a6 (This link is being provided for informational/ educational purposes only.) Test Performed at: [facility] [place] [address] [place], [place] ??[id number] SAAD HAMILTON DO,MPH 09/08/2015 2:07 PM CDT 09/08/2015 2:11 PM CDT Aniceto Barker MD LAB - CHEMISTRY ALFREDO Plas[facility] Organization Address City/State/ZIP Co de Phone Number [facility]) from Last 3 Months or Most Recently Relevant to Health Maintenance Care Teams Wig Dresser Relationship Specialty Start Date End Date Tee Chung DO [address] [id number] PCP - General Internal Medicine 04/10/16
--- OUTSIDE RECORDS SUMMARY | 2024-04-29 16:16 | XMS_ITS | Data Portability ---
Author Organization [facility] Address [address] [place] [address] [place] [address] Care Team Providers Care Classification Inspector Name Role Phone KAILEY CASTANON Primary Care Provider AGATHA MALCOLM Primary Care Provider [phone] Assessment No assessment recorded. Plan of Treatment Reminders Order Date Submit Date Provider Last Modified By Organization Details Last Modified Time Details Appointments None recorded. Lab urinalysis, dipstick 2021 022 [address], [address], [place], [address], 13:01:47 urinalysis, dipstick 2021 [address], [address], [place], [address], 16:10:45 urinalysis, dipstick 2021 022 [address], [address], [place], [address], 17:13:47 urinalysis, dipstick 2022 [address] [facility] [place], [place] [id number], [address], [place], [address], 14:29:26 urinalysis, dipstick 10/2023 [place] [address] , [address], [address], [place], [address], 16:13:05 culture, urine 2023 [facility] (Lab), [address], [place], [address], 04:35:08 Referral urogynecolo gist referral 2021 BISBEE Yonathan Ladd MD, [address] [facility], [facility] [address], [place], [address], 3 10:32:15 Procedures None recorded. Surgeries None recorded. Imaging None recorded. Medication Orders Cipro 250 mg tablet [address] [facility][id number], [address], [id number], 3 14:35:59 Bactrim DS 800 mg-160 mg tablet 2022 023 [facility] #[id number], [address], [id number], 3 14:48:44 Macrobid 100 mg capsule 2023 [facility] #[id number], [address] [place] [address], [id number], 4 16:13:10 phenazopyri dine 100 mg tablet 2023 [facility] #[id number], [address], [id number], 4 16:13:10 Patient TargetsNo targets recorded. Patient InstructionsNo instructions recorded. Reason for Referral Urogynecologist Referral for Increased frequency of urination Recurrent UTI/UTI like sx's confirmed on urine culture Referring Physician: Shaunna Saunders, CAMPAIGN MANAGEMENT SPECIALIST, Encounter Date: 03/12/2022 Results Created Date Observation Date Name Description Value Unit Range Abnormal Flag Note LastModifiedBy Organization Detail LastModifiedTime 12/21/19 22 12/20/2021 URINA LYSIS , WITH MICRO SCOPI C urinalysis, with microscopic CANCEL LED Reord ered Not Available [facility] [address] [place], [place] [address], [address], 12/21/2021 04:37:39 12/21/19 22 12/20/2021 URINA LYSIS , COMPL ETE (QUES T) color DARK YELLOW yellow Not Available [facility] [address] [place] [address], [address], 12/23/2021 07:56:18 12/21/19 22 12/20/2021 URINA LYSIS , COMPL ETE (QUES T) apperance TURBID clear abnormal Not Available [facility] [address] [place] [address], [address], 12/23/2021 07:56:18 12/21/19 22 12/20/2021 URINA LYSIS , COMPL ETE (QUES T) specific gravity 1.019 1.001- 1.035 Not Available [facility] [address] [place] [address], [address], 12/23/2021 07:56:18 12/21/19 22 12/20/2021 URINA LYSIS , COMPL ETE (QUES T) pH 6.0 5.0-8. 0 Not Available [facility] [address] [place] [address], [address], 12/23/2021 07:56:18 12/21/19 22 12/20/2021 URINA LYSIS , COMPL ETE (QUES T) glucose NEGATI VE negati ve Not Available [facility] [address] [place], [address], 12/23/2021 07:56:18 12/21/19 22 12/20/2021 URINA LYSIS , COMPL ETE (QUES T) bilirubin NEGATI VE negati ve Not Available [facility] [place], [address], 12/23/2021 07:56:18 12/21/19 22 12/20/2021 URINA LYSIS , COMPL ETE (QUES T) ketones NEGATI VE negati ve Not Available [facility] [address] [place], [place] [address], [place], [address], 12/23/2021 07:56:18 12/21/19 22 12/20/2021 URINA LYSIS , COMPL ETE (QUES T) occult blood 3+ negati ve abnormal Not Available [facility] [address] [place], [place] [address], [place], [address], 12/23/2021 07:56:18 12/21/19 22 12/20/2021 URINA LYSIS , COMPL ETE (QUES T) protein 3+ negati ve abnormal Not Available [facility] [address] [place], [place] [address], [place], [address], 12/23/2021 07:56:18 12/21/19 22 12/20/2021 URINA LYSIS , COMPL ETE (QUES T) nitrite POSITI VE negati ve abnormal Not Available [facility] [address] [place], [place] [address], [place], [address], 12/23/2021 07:56:18 12/21/19 22 12/20/2021 URINA LYSIS , COMPL ETE (QUES T) leukocyte esterase 2+ negati ve abnormal Not Available [facility] [address] [place], [place] [address], [place], [address], 12/23/2021 07:56:18 12/21/19 22 12/20/2021 URINA LYSIS , COMPL ETE (QUES T) WBC PACKED /hpf < or = 5 abnormal Not Available [facility] [address] [place] [address], [address], 12/23/2021 07:56:18 12/21/19 22 12/20/2021 URINA LYSIS , COMPL ETE (QUES T) RBC > OR = 60 /hpf < or = 2 abnormal Not Available [facility] [address] [place] [address], [address], 12/23/2021 07:56:18 12/21/19 22 12/20/2021 URINA LYSIS , COMPL ETE (QUES T) squamous epithelial cells 6-10 /hpf < or = 5 abnormal Not Available [facility] [address] [place] [address], [address], 12/23/2021 07:56:18 12/21/19 22 12/20/2021 URINA LYSIS , COMPL ETE (QUES T) bacteria MANY /hpf none seen abnormal Not Available [facility] [address] [place] [address], [address], 12/23/2021 07:56:18 12/21/19 22 12/20/2021 URINA LYSIS , COMPL ETE (QUES T) hyaline cast 0-5 /lpf none seen abnormal Perfo rming Organ izati on Infor matio n: Site ID: CB Name: [facility]re [facility] [address] [place] [address] Direc tor: Mohsen null M.D. Not Available [facility] [address] [place] [address], [address], 12/23/2021 07:56:18 12/21/19 22 12/20/2021 CULTU RE: URINE result report SEE RESULT S BELOW abnormal Test: Cultu re: Urine Speci men Sourc e: Urine Voide d Speci men Type: Urine Speci men Date: 2021 4:45 PM Resul t Date: 2021 6:53 AM Resul t Statu s: Final resul t Vicenteor mal: Yes Resul jesus Lab: [facility] [address] [facility] [address] Tel: [phone] CULTU RE ----- ----- ----- --- >100, 000 CFU/m l Esche reuben a coli (Abno rmal) SUSCE PTIBI LITY ----- ----- ----- --- Esche reuben a coli METHO D BHAVESH ----- ----- ----- ----- ----- ---- ----- ----- ----- ----- ----- AMIKA TIARA <=16 ug/mL Susce ptibl e AMPIC ILLIN >16 ug/mL Resis tant AMPIC ILLIN /SULB ACTAM >16 ug/mL Resis tant AZTRE ONAM <=4 ug/mL Susce ptibl e CEFAZ TOBIAS <=2 ug/mL Susce ptibl e CEFEP JAYLYN <=2 ug/mL Susce ptibl e CEFOX ITIN <=8 ug/mL Susce ptibl e CEFTA ZIDIM E <=1 ug/mL Susce ptibl e CEFTR IAXON E <=1 ug/mL Susce ptibl e CIPRO FLOXA TIARA <=1 ug/mL Susce ptibl e GENTA MICIN <=1 ug/mL Susce ptibl e LEVOF LOXAC IN <=0.2 5 ug/mL Susce ptibl e MEROP ENEM <=1 ug/mL Susce ptibl e NITRO FURAN TOIN <=32 ug/mL Susce ptibl e PIPER ACILL IN/TA ZOBAC BEST <=4 ug/mL Susce ptibl e TOBRA MYCIN <=1 ug/mL Susce ptibl e TRIME THOPR IM/LANDEROS LFAME THOXA ZOLE >2 ug/mL Resis tant Not Available [facility] [address], [place], [address], 12/23/2021 07:56:18 12/21/19 22 12/20/2021 urina lysis , dipst ick Leukocytes ++ Not Available [facility] [address], [place], [address], 12/20/2021 15:44:12 12/21/19 22 12/20/2021 urina lysis , dipst ick Nitrite + Not Available [place] [address], [place], [address], 12/20/2021 15:44:12 12/21/19 22 12/20/2021 urina lysis , dipst ick Urobilinogen chan Not Available [facility] [address], [place], [address], 12/20/2021 15:44:12 12/21/19 22 12/20/2021 urina lysis , dipst ick Protein +++ Not Available [place] [address], [place], [address], 12/20/2021 15:44:12 12/21/19 22 12/20/2021 urina lysis , dipst ick pH 5 Not Available [place] [address], [place], [address], 12/20/2021 15:44:12 12/21/19 22 12/20/2021 urina lysis , dipst ick Blood +++ Not Available [place] [address], [place], [address], 12/20/2021 15:44:12 12/21/19 22 12/20/2021 urina lysis , dipst ick Specific Bronson 1.015 Not Available [facility] [address], [place], [address], 12/20/2021 15:44:12 12/21/19 22 12/20/2021 urina lysis , dipst ick Ketone neg Not Available [place] [address], [place], [address], 12/20/2021 15:44:12 12/21/19 22 12/20/2021 urina lysis , dipst ick Bilirubin neg Not Available [facility] [address], [place], [address], 12/20/2021 15:44:12 12/21/19 22 12/20/2021 urina lysis , dipst ick Glucose neg Not Available [place] [address], [place], [address], 12/20/2021 15:44:12 12/21/19 22 12/20/2021 urina lysis , dipst ick Appearance cloudy Not Available [facility] [address], [place], [address], 12/20/2021 15:44:12 12/21/19 22 12/20/2021 urina lysis , dipst ick Color dark yellow Not Available [place] [address], [place], [address], 12/20/2021 15:44:12 01/05/20 22 01/04/2022 urina lysis , dipst ick Leukocytes NEG Not Available [facility] [address], [place], [address], 01/04/2022 13:00:12 01/05/20 22 01/04/2022 urina lysis , dipst ick Nitrite NEG Not Available [place] [address], [place], [address], 01/04/2022 13:00:12 01/05/20 22 01/04/2022 urina lysis , dipst ick Urobilinogen NEG Not Available [facility]es [address], [place], [address], 01/04/2022 13:00:12 01/05/20 22 01/04/2022 urina lysis , dipst ick Protein NEG Not Available [place] [address], [place], [address], 01/04/2022 13:00:12 01/05/20 22 01/04/2022 urina lysis , dipst ick pH 7 Not Available [place] [address], [place], [address], 01/04/2022 13:00:12 01/05/20 22 01/04/2022 urina lysis , dipst ick Specific Bronson 1.010 Not Available [facility] [address], [place], [address], 01/04/2022 13:00:12 01/05/20 22 01/04/2022 urina lysis , dipst ick Ketone NEG Not Available [place] [address], [place], [address], 01/04/2022 13:00:12 01/05/20 22 01/04/2022 urina lysis , dipst ick Bilirubin NEG Not Available [facility] [address], [place], [address], 01/04/2022 13:00:12 01/05/20 22 01/04/2022 urina lysis , dipst ick Glucose NEG Not Available [place] [address], [place], [address], 01/04/2022 13:00:12 01/05/20 22 01/04/2022 urina lysis , dipst ick Appearance CLEAR Not Available [facility] [address], [place], [address], 01/04/2022 13:00:12 01/05/20 22 01/04/2022 urina lysis , dipst ick Color STRAW Not Available [place] [address], [place], [address], 01/04/2022 13:00:12 02/23/20 22 02/22/2022 URINA LYSIS , WITH MICRO SCOPI C color, urine Light Yellow Not Available [facility] (Lab) [address] [facility] [address], [place], [address], 02/25/2022 11:25:02 02/23/20 22 02/22/2022 URINA LYSIS , WITH MICRO SCOPI C clarity, urine Clear Not Available [facility] (Lab) [address], [place], [address], 02/25/2022 11:25:02 02/23/20 22 02/22/2022 URINA LYSIS , WITH MICRO SCOPI C glucose, urine Normal mg/dL negati ve Not Available [facility] (Lab) [address] [place], [address], 02/25/2022 11:25:02 02/23/20 22 02/22/2022 URINA LYSIS , WITH MICRO SCOPI C bilirubin, urine Negati ve negati ve Not Available [facility] (Lab) [address] [place], [address], 02/25/2022 11:25:02 02/23/20 22 02/22/2022 URINA LYSIS , WITH MICRO SCOPI C ketones, urine Negati ve mg/dL negati ve Not Available [facility] (Lab) [address] [place], [address], 02/25/2022 11:25:02 02/23/20 22 02/22/2022 URINA LYSIS , WITH MICRO SCOPI C specific gravity, urine 1.014 . 1.005- 1.035 Not Available [facility] (Lab) [address] [place], [address], 02/25/2022 11:25:02 02/23/20 22 02/22/2022 URINA LYSIS , WITH MICRO SCOPI C blood, urine Trace negati ve abnormal Not Available [facility] (Lab) [address], [place], [address], 02/25/2022 11:25:02 02/23/20 22 02/22/2022 URINA LYSIS , WITH MICRO SCOPI C pH, urine 6.0 . 5.0-7. 0 Not Available [facility] (Lab) [address], [place], [address], 02/25/2022 11:25:02 02/23/20 22 02/22/2022 URINA LYSIS , WITH MICRO SCOPI C protein, UA Negati ve mg/dL negati ve, 10-20 Not Available [facility] (Lab) [address], [place], [address], 02/25/2022 11:25:02 02/23/20 22 02/22/2022 URINA LYSIS , WITH MICRO SCOPI C nitrite, urine Negati ve negati ve Not Available [facility] (Lab) [address] [place], [address], 02/25/2022 11:25:02 02/23/20 22 02/22/2022 URINA LYSIS , WITH MICRO SCOPI C leukocyte esterase, urine 500 brant/u L negati ve abnormal Not Available [facility] (Lab) [address] [place], [address], 02/25/2022 11:25:02 02/23/20 22 02/22/2022 URINA LYSIS , WITH MICRO SCOPI C urobilinogen , urine Normal mg/dL normal , <2.0 Not Available [facility] (Lab) [address] [place], [address], 02/25/2022 11:25:02 02/23/20 22 02/22/2022 URINA LYSIS , WITH MICRO SCOPI C RBC, urine 5-9 /hpf none, 0-2 abnormal Not Available [facility] (Lab) [address], [place], [address], 02/25/2022 11:25:02 02/23/20 22 02/22/2022 URINA LYSIS , WITH MICRO SCOPI C WBC, urine >=50 /hpf none, 0-5 abnormal Not Available [facility] (Lab) [address], [place], [address], 02/25/2022 11:25:02 02/23/20 22 02/22/2022 URINA LYSIS , WITH MICRO SCOPI C squamous epithelial cells, urine None /hpf none Not Available [facility] (Lab) [address], [place], [address], 02/25/2022 11:25:02 02/23/20 22 02/22/2022 URINA LYSIS , WITH MICRO SCOPI C bacteria, urine Trace /hpf none abnormal Not Available [facility] (Lab) [address], [place], [address], 02/25/2022 11:25:02 02/23/20 22 02/22/2022 URINA LYSIS , WITH MICRO SCOPI C hyaline cast, urine None /lpf none, 0-2 Not Available [facility] (Lab) [address], [place], [address], 02/25/2022 11:25:02 02/23/20 22 02/22/2022 URINA LYSIS , WITH MICRO SCOPI C mucus, urine Modera te /hpf none, trace, few abnormal clean catch Not Available [facility] (Lab) [address], [place], [address], 02/25/2022 11:25:02 02/23/20 22 02/22/2022 CULTU RE: URINE result report SEE RESULT S BELOW abnormal Test: Cultu re: Urine Speci men Sourc e: Urine Voide d Speci men Type: Urine Speci men Date: 02/22 3:39 PM Resul t Date: 02/25 10:22 AM Resul t Statu s: Final resul t Abnor mal: Yes Resul jesus Lab: [facility] [address] [facility] [address] Tel: CULTU RE ----- ----- ----- --- >100, 000 CFU/m l Enter ococc us speci es (Abno rmal) SUSCE PTIBI LITY ----- ----- ----- --- Enter ococc us speci es METHO D BHAVESH ----- ----- ---- ----- ----- ----- ----- --- AMPIC ILLIN <=2 ug/mL Susce ptibl e CIPRO FLOXA TIARA <=1 ug/mL Susce ptibl e NITRO FURAN TOIN <=32 ug/mL Susce ptibl e VANCO MYCIN 4 ug/mL Susce ptibl e Not Available [facility] (Lab) [address], [place], [address], 02/25/2022 11:25:03 02/23/20 22 02/22/2022 urina lysis , dipst ick Leukocytes + Not Available [facility] [address], [place], [address], 02/22/2022 16:10:07 02/23/20 22 02/22/2022 urina lysis , dipst ick Nitrite neg Not Available [address], [place], [address], 02/22/2022 16:10:07 02/23/20 22 02/22/2022 urina lysis , dipst ick Urobilinogen neg Not Available [facility] col[facility] [address], [place], [address], 02/22/2022 16:10:07 02/23/20 22 02/22/2022 urina lysis , dipst ick Protein trace Not Available [place] [address], [place], [address], 02/22/2022 16:10:07 02/23/20 22 02/22/2022 urina lysis , dipst ick pH 5 Not Available [place] [address], [place], [address], 02/22/2022 16:10:07 02/23/20 22 02/22/2022 urina lysis , dipst ick Blood ++ Not Available [place] [address], [place], [address], 02/22/2022 16:10:07 02/23/20 22 02/22/2022 urina lysis , dipst ick Specific Bronson 1.005 Not Available [facility] [address], [place], [address], 02/22/2022 16:10:07 02/23/20 22 02/22/2022 urina lysis , dipst ick Ketone neg Not Available [place] [address], [place], [address], 02/22/2022 16:10:07 02/23/20 22 02/22/2022 urina lysis , dipst ick Bilirubin neg Not Available [facility], [place], [address], 02/22/2022 16:10:07 02/23/20 22 02/22/2022 urina lysis , dipst ick Glucose neg Not Available [place] [address], [place], [address], 02/22/2022 16:10:07 02/23/20 22 02/22/2022 urina lysis , dipst ick Appearance cloudy Not Available [facility] [address], [place], [address], 02/22/2022 16:10:07 02/23/20 22 02/22/2022 urina lysis , dipst ick Color yellow Not Available [place] [address], [place], [address], 02/22/2022 16:10:07 03/12/20 22 03/12/2022 CULTU RE: URINE result report SEE RESULT S BELOW Test: Cultu re: Urine Speci men Sourc e: Urine Voide d Speci men Type: Urine Speci men Date: 2021 5:35 PM Resul t Date: 2021 6:34 AM Resul t Statu s: Final resul t Abnor mal: No Resul ting Lab: [facility] [address] [facility] [address] Tel: CULTU RE ----- ----- ----- --- No growt h in 1 day (dete ction level of 10,00 0 colon ies / ml.) Not Available [facility] (Lab) [address], [place], [address], 03/14/2022 07:38:22 03/12/20 22 03/12/2022 urina lysis , dipst ick Leukocytes +2 Not Available [facility] [address], [place], [address], 03/12/2022 17:07:22 03/12/20 22 03/12/2022 urina lysis , dipst ick Nitrite normal Not Available [place] [address], [place], [address], 03/12/2022 17:07:22 03/12/20 22 03/12/2022 urina lysis , dipst ick Urobilinogen normal Not Available [facility] [address], [place], [address], 03/12/2022 17:07:22 03/12/20 22 03/12/2022 urina lysis , dipst ick Protein trace Not Available [place] [address], [place], [address], 03/12/2022 17:07:22 03/12/20 22 03/12/2022 urina lysis , dipst ick pH 6 Not Available [place] [address], [place], [address], 03/12/2022 17:07:22 03/12/20 22 03/12/2022 urina lysis , dipst ick Specific Bronson 1.020 Not Available [facility] [address], [place], [address], 03/12/2022 17:07:22 03/12/20 22 03/12/2022 urina lysis , dipst ick Ketone normal Not Available [place] [address], [place], [address], 03/12/2022 17:07:22 03/12/20 22 03/12/2022 urina lysis , dipst ick Bilirubin normal Not Available [facility] [address], [place], [address], 03/12/2022 17:07:22 03/12/20 22 03/12/2022 urina lysis , dipst ick Glucose normal Not Available [place] [address], [place], [address], 03/12/2022 17:07:22 03/12/20 22 03/12/2022 urina lysis , dipst ick Appearance normal Not Available [facility] [address], [place], [address], 03/12/2022 17:07:22 03/12/20 22 03/12/2022 urina lysis , dipst ick Color normal Not Available [place] [address], [place], [address], 03/12/2022 17:07:22 03/21/20 23 03/21/2023 urina lysis , dipst ick Leukocytes + Not Available [facility] [address], [place], [address], 03/21/2023 14:28:33 03/21/20 23 03/21/2023 urina lysis , dipst ick pH 7 Not Available [place] [address], [place], [address], 03/21/2023 14:28:33 03/21/20 23 03/21/2023 urina lysis , dipst ick Blood ++ Not Available [place] [address], [place], [address], 03/21/2023 14:28:33 03/21/20 23 03/21/2023 urina lysis , dipst ick Specific Bronson 1.005 Not Available [facility] [address], [place], [address], 03/21/2023 14:28:33 02/04/20 24 02/04/2024 CULTU RE: URINE result report SEE RESULT S BELOW abnormal Test: Cultu re: Urine Speci men Sourc e: Urine - Clean Catch Speci men Type: Urine Speci men Date: 02/03 1525 Resul t Date: 2023 0331 Resul t Statu s: Final resul t Abnor mal: Yes Moses lee Lab: [facility] [address] [facility] [address] Tel: CULTU RE ----- ----- ----- --- >100, 000 CFU/m l Strep tococ cus agala ctiae (Grou p B) (Abno rmal) Not Available [facility] (Lab) [address], [place], [address], 02/06/2024 04:35:08 02/27/20 22 09/20/2021 MAMMO , diagn ostic , digit al, bilat eral No observ ation record ed. [address], [place], [address], 02/26/2022 14:06:11 02/27/20 22 09/20/2021 US, nighat t, donavona teral No observ ation record ed. [address], [place], [address], 02/26/2022 14:06:11 05/18/19 23 09/28/2021 MAMMO , diagn ostic , digit al, bilat eral No observ ation record ed. [address], [place], [address], 03/21/2023 14:50:13 Result Notes None recorded. Procedures Surgical History Date Name Laterality Status Provider Name and Address Organization Details Recorded Time 09/21/19 22 Date of Last Mammogram completed Lyssa Morales [facility] 03/12/2022 13:25:40 04/07/19 19 removal of sebaceous cyst completed Lyssa Morales [facility] 03/12/2022 17:04:45 04/07/19 18 Muscle biopsy superficial completed Lyssasofy Morales [facility] 03/12/2022 17:04:18 04/07/19 12 blepharoplasty completed Lyssasofy Morales [facility] 03/12/2022 17:04:03 04/07/19 08 Dilation and Curettage completed Lyssa Morales [facility] 03/12/2022 17:05:40 04/07/19 08 procedure on lymph node completed Lyssa Morales [facility] 03/12/2022 17:06:31 04/07/18 86 [facility] 03/12/2022 17:04:31 04/07/18 85 [facility] 03/12/2022 17:06:44 open meniscectomy completed Ragini garcía [facility] 03/12/2022 13:29:33 Imaging Results Imaging Date Name Status LastModified by Organiz ation Details LastModified Time 09/20/2021 MAMMO, diagnostic, digital, bilateral completed [address], [place], [address], 02/26/2022 14:06:11 09/20/2021 US, breast, unilateral completed [address], [place], [address], 02/26/2022 14:06:11 09/28/2021 MAMMO, diagnostic, digital, bilateral completed [address], [place], [address], 03/21/2023 14:50:13 Procedure Notes None recorded. Medical Equipment None Reported. Allergies No known drug allergies Medications Name Sig Start Date Stop Date Status Note LastModified by Organization Details LastModified Time nystatin 100,000 unit/mL oral suspension TAKE 5ML BUCCALLY FOUR TIMES DAILY FOR 7 DAYS. ADMINISTE R 1/2 (ONE-HALF ) OF DOSE IN EACH SIDE OF THE MOUTH active Not Available Not Available No t Available Lidocaine Viscous 2 % mucosal solution SWISH AND SPIT 5ML BY MOUTH FOUR TIMES DAILY. NO EATIGN OR DRINKING FOR 30 MINUTES AFTER USING 02/27 completed Not Available Not Available Not Available fluconazole 150 mg tablet TAKE 1 TABLET BY MOUTH 1 TIME FOR 1 DAY 12/20 completed Not Available Not Available Not Available benzonatate 200 mg capsule TAKE 1 CAPSULE BY MOUTH THREE TIMES DAILY NEEDED FOR COUGH 03/21 completed Not Available Not Available Not Available sumatriptan 100 mg tablet TAKE ONE TABLET BY MOUTH ONCE NEEDED FOR MIGRAINE HEADACHE active Not Available Not Available No t Available hydrocodone 5 mg-acetamin ophen 325 mg tablet TAKE 1 TABLET BY MOUTH THREE TIMES DAILY NEEDED active Not Available Not Available No t Available fluconazole 200 mg tablet Take 1 tablet PO on days 1, 4, & 7 x 3 doses. 02/27 completed Not Available Not Available Not Available phenazopyri dine 200 mg tablet TAKE 1 TABLET BY MOUTH THREE TIMES DAILY FOR 7 DAYS 02/27 completed Not Available Not Available Not Available ondansetron HCl 4 mg tablet TAKE 1/2 TABLET BY MOUTH EVERY 8 HOURS active Not Available Not Available No t Available midodrine 5 mg tablet TAKE 1 TABLET BY MOUTH TWICE DAILY 03/12 completed Not Available Not Available Not Available hydroxyzine HCl 50 mg tablet TAKE 1 TABLET BY MOUTH THREE TIMES DAILY NEEDED FOR ANXIETY active Not Available Not Available No t Available clopidogrel 75 mg tablet TAKE 1 TABLET BY MOUTH EVERY DAY active Not Available Not Available No t Available ciprofloxac in 250 mg tablet TAKE 1 TABLET BY MOUTH EVERY 12 HOURS WITH MEALS FOR 3 DAYS 03/21 completed Not Available Not Available Not Available ciprofloxac in 500 mg tablet TAKE 1 TABLET BY MOUTH EVERY 12 HOURS FOR 7 DAYS 02/27 completed Not Available Not Available Not Available sulfamethox azole 800 mg-trimetho prim 160 mg tablet TAKE 1 TABLET BY MOUTH EVERY 12 HOURS WITH MEALS FOR 5 DAYS active Not Available Not Available No t Available phenazopyri dine 100 mg tablet TAKE 1 TABLET BY MOUTH THREE TIMES DAILY FOR 3 DAYS active Not Available Not Available No t Available cephalexin 500 mg capsule TAKE 1 CAPSULE BY MOUTH TWICE DAILY FOR 7 DAYS active Not Available Not Available No t Available omeprazole 20 mg capsule,del ayed release TAKE ONE CAPSULE BY MOUTH DAILY active Not Available Not Available No t Available methylpredn isolone 4 mg tablets in a dose pack FOLLOW PACKAGE DIRECTION S active Not Available Not Available No t Available fludrocorti sone 0.1 mg tablet TAKE 1 TABLET BY MOUTH TWICE DAILY 03/12 completed Not Available Not Available Not Available finasteride 5 mg tablet TAKE 1 TABLET BY MOUTH EVERY DAY active Not Available Not Available No t Available tobramycin 0.3 %-dexametha sone 0.1 % eye drops,suspe nsion active Not Available Not Available Not Available cyclobenzap rine 5 mg tablet TAKE 1 TABLET BY MOUTH THREE TIMES DAILY NEEDED active Not Available Not Available No t Available nitrofurant oin monohydrate /macrocryst als 100 mg capsule TAKE 1 CAPSULE BY MOUTH EVERY 12 HOURS FOR 7 DAYS active Not Available Not Available No t Available naloxone 4 mg/actuatio n nasal spray CALL 911. SPR CONTENTS OF ONE SPRAYER (0.1ML) INTO ONE NOSTRIL. REPEAT IN 2-3 MIN IF SYMPTOMS OF OPIOID EMERGENCY PERSIST, ALTERNATE NOSTRILS active Not Available Not Available No t Available bupropion HCl 150 mg tablet,12 hr sustained-r elease(smok ing deterrent) active Not Available Not Available N ot Available Vitals Date Recorded Body height Provider Name an d Address Organization Details Last Updated DateTime 01/04/2022 158.75 cm Diana Lemuel [facility] 01/04/2022 12:59:44 Date Recorded Body height Body mass index (BMI) Body weight Systolic blood pressure Diastolic blood pressure Provider Name and Address Organization Details Last Updated DateTime 03/12/2022 158.75 cm 22.7 kg/m2 73067.64 g 116 mm[Hg] 76 mm[Hg] Lyssa Morales [facility] 2 16:56:35 Date Recorded Body height Body mass index (BMI) Body weight Systolic blood pressure Diastolic blood pressure Provider Name and Address Organization Details Last Updated DateTime 03/21/2023 158.75 cm 25.6 kg/m2 87157.12 g 122 mm[Hg] 76 mm[Hg] Vida Duncan [facility] 3 14:34:08 Date Recorded Body height Body mass index (BMI) Body weight Systolic blood pressure Diastolic blood pressure Provider Name and Address Organization Details Last Updated DateTime 02/04/2024 158.75 cm 26.5 kg/m2 68045.08 g 113 mm[Hg] 76 mm[Hg] Vida Duncan [facility] 4 16:10:23 Social History Question Answer Notes LastModified by Organizat ion Details LastModified Time Tobacco Smoking Status Current Every Day Smoker Lyssa du, [facility] 03/12/2022 17:03:53 Do You Have An Advance Directive? No [email or web address] Information not available 03/12/2022 What Is Your Level Of Alcohol Consumption? Occasional [email or web address] Information not available 03/12/2022 Are You Blind Or Do You Have Difficulty Seeing? No [email or web address] Information not available 03/12/2022 What Is Your Level Of Caffeine Consumption? Occasional Information not available 03/12/2022 In The 14 Days Before Symptom Onset, Have You Had Close Contact With A Laboratory-confir med COVID-19 While That Case Was Ill? No [email or web address] Information not available 03/12/2022 In The 14 Days Before Symptom Onset, Have You Had Close Contact With A Person Who Is Under Investigation For COVID-19 While That Person Was Ill? No [email or web address] Information not available 03/12/2022 Have You Been To An Area Known To Be High Risk For COVID-19? No [email or web address] Information not available 03/21/2023 Are You Deaf Or Do You Have Serious Difficulty Hearing? No Information not available 03/12/2022 What Type Of Diet Are You Following? REGULAR Information not available 03/12/2022 What Is The Highest Grade Or Level Of School You Have Completed Or The Highest Degree You Have Received? [id number] [email or web address] Information not available 03/12/2022 What Is Your Occupation? Retired [email or web address] Information not available 03/12/2022 Are There Any Guns Present In Your Home? Yes [email or web address] Information not available 03/12/2022 Do You Use Protection During Sex? No Information not available 03/12/2022 Do You Use Your Seat Belt Or Car Seat Routinely? Yes [email or web address] Information not available 03/12/2022 Do You Have Smoke And Carbon Monoxide Detectors In Your Home? Yes [email or web address] Information not available 03/12/2022 How Much Tobacco Do You Smoke? 0.25 PPD [email or web address] Information not available 03/12/2022 Do You Feel Stressed (tense, Restless, Nervous, Or Anxious, Or Unable To Sleep At Night)? [id number] [email or web address] Information not available 03/12/2022 Do You Use Any Illicit Or Recreational Drugs? No [email or web address] Information not available 03/12/2022 Do You Use Sunscreen Routinely? Yes [email or web address] Information not available 03/12/2022 Has Tobacco Cessation Counseling Been Provided? No [email or web address] Information not available 03/12/2022 How Many Years Have You Smoked Tobacco? 20 Information not available 03/12/2022 Have You Used IV Drugs? No [email or web address] Information not available 03/12/2022 Do You Or Have You Ever Used Any Other Forms Of Tobacco Or Nicotine? No [email or web address] Information not available 03/12/2022 Sex: Unknown Functional Status Question Answer Note LastModified by Organizat ion Details LastModified Time Do you have difficulty walking or climbing stairs? No [email or web address] Information not available 03/12/2022 Are you able to walk? YESLIMIT [email or web address] Information not available 03/12/2022 Are you able to care for yourself? Yes Information not available 03/12/2022 Do you have difficulty dressing or bathing? No Information not available 03/12/2022 What is your exercise level? Occasional [email or web address] Information not available 03/12/2022 Mental Status None recorded. Family History Relationship Description Onset Age of this Age Resolved Age Notes LastModified by Organization Details LastModified Time Mother Malignant tumor of breast [email or web address] Not available 03/12 17:03:35 Notes:Family History: Family History Problem Relation Age of Onset Cancer - Breast Mother Cancer - Stomach Maternal Grandfather Colon polyps Maternal Grandfather Cancer - Colon Maternal Aunt Medical History Condition Response Allergies (Food, seasonal, environmental ) N Other Y Breast Cancer N Drug/Latex Allergies/Reactions N Blood Transfusion N Dermatologic Disorders N Lung Disease N Defects or Inherited Disease N Breast Problem N Gestational Diabetes N Hematologic disorders N Anesthesia Complications N History of STI Y Deep Vein Thrombosis N Polycystic ovary syndrome N Anxiety Disorder Y Autoimmune disease N Arthritis N Infertility N Polyps N Acid Reflux (GERD) Y History of abnormal pap N Cancer N Stroke N Varicosities N Neurologic/Epilepsy N Endometriosis N High Cholesterol N Headaches Y Fibromyalgia Y Kidney Disease N Heart Problems N Kidney or Bladder Problems N Thyroid Problems Y GI Problems Y Eating Disorder N Anemia N Art (IVF or FET) N Psychiatric Illness N Ovarian Cancer N Diabetes N Pulmonary (TB, Asthma) Y Hepatitis/Liver Disease N No Past Medical History N Eczema N Urinary Tract Infection N Abuse/Domestic Violence N Asthma N Trauma/Violence N Depression/ depression Y Heart Disease N Pre-Eclampsia N Hypertension N Osteoporosis Y Thrombophilias N Gynecological History Statement/Question Response Abnormal Pap N Date of Last Mammogram 09/20/2021 Date of LMP 04/07/2000 On BCP's at Conception? N STIs/STDs N HPV Vaccine N Current Control Method Tubal Ligat ion Age at First Child 25 If Post Menopausal, Age at Menopause 89 1 Sexually Active? Y Date of DEXA bone scan 07/11/2020 Date of Last Pap Smear Sexual Problems? N Desired Control Method Other LMP Unknown N Obstetrics History GPAL:G 4 P 2 0 2 2 Type Value Full Term 2 Spontaneous 2 Living 2 Total 4 Past Encounters Encounter ID Performer Location Encounter Start Date Encounter Closed Date Diagnosis/Indication Diagnosis SNOMED-CT Code Diagnosis ICD10 Code Diagnosis Note [id number] Shaunna Saunders [facility] [address] [address] 08/22/2021 14:39:38 08/23/2021 09:51:45 Swelling of breast 155048287 Z12.31 N64.4 Today we agreed to order breast imaging as there are still some breast swelling/t enderness in left side where the trauma occurred. She will return for WWE & update any other screenings necessary. Also concerned about prolapse uterus-tia l evaluate that then as well. Time spent in visit is a total of 30 mins with at least 50% of visit consisting of counseling and review of plan of care. [id number] Shaunna Saunders [facility] [address] [address] 09/28/2021 15:15:10 09/28/2021 16:16:50 Gynecologic examination 89159130 Z01.419 Take Calcium with Vitamin D 12-1500mg daily. Do monthly self breast exams. It is advised to get annual flu shot in the fall and she could obtain at [facility] or [facility] care clinic. If you haven't received the Tdap vaccine in the last 10 years you should obtain one as well. Have mammogram yearly, bone density every 2-3 years and colonoscop y every 5-10 years depending on findings and history. Engage in daily exercise of low impact aerobic exercise 45-60 minutes 4-5 times weekly. Avoid tobacco and illicit drugs as well as using moderation with alcohol intake less than 1-2 8 oz beverages daily. This lifestyle behavior pattern will lead to less health conditions and longer life span. If BMI greater than 25 weight watchers or dietary consult advised. Questions have been answered. Patient appears to understand instructio ns, but if you have any further questions call or respond to this email Pap/hpv d/c per asccp unless otherwise indicatedS TD Screen declinedGe netic Screen discussedC olon Screen UTD PCPDexa Screen UTD PCP & specialist . Considerin g returning to using prolia or other optionsRou natasha Labs UTD PCPMammo REviewed at today's visit & is it wnl. Recommend yearly mammo screening Uterine prolapse 6263738 5 N81.4 Suspect Uterine prolapse which she was seen for by Dr. Sheri Multani almost 5yrs agoWas not enough to warrant a pessary at that time per pt.She is interested in further evaluation & pessary fitting but has significan t back pain today & doesn't feel she can undress again. She wishes to return for pessary fitting & full evaluation of this issueShe denies UTI sx's and pelvic pain at this time.Will call for pessary fitting [id number] Shaunna Saunders , [facility] [address] [address] 12/20/2021 15:01:39 12/21/2021 11:31:18 Acute urinary tract infection 162505432 N39.0 Suspect UTI has not resolved on urine dipWill send for culture & call if abx need to be stopped or changed.Wi ll use Bactrim vs Macrobid. Counseled on medication R/B's, Most common side effects, & use. All questions were answered to patient satisfacti on. Time spent in visit is a total of 15 mins with at least 50% of visit consisting of counseling and review of plan of care. Vaginitis 77765118 N76.0 Exam is suspect to vaginal yeast after recent abxWill give additional dosing since also retreating for UTI that is suspected to have not cleared up. [id number] [place] [address],[place] [address] 01/04/2022 11:54:58 01/04/2022 13:02:13 Urinary symptoms 367657210 R39.9 [id number] [place] [address],[place] [address] 02/22/2022 12:22:26 02/25/2022 16:20:31 Urinary symptoms 039343426 R39.9 [id number] Shaunna Saunders [place] [address],[place] [address] 03/12/2022 16:19:27 03/13/2022 17:02:43 Increased frequency of urination 938435688 R35.0 Requested she return to Dr. Julee heard for recurrent UTI that are starting to return.No prominent prolapse seen on exam-in lithotomy position only.Agree able to planWill run urine and treat until seen by Dr. Ladd. Time spent in visit is a total of 15 mins with at least 50% of visit consisting of counseling and review of plan of care. Urinary symptoms 1387787 08 R39.9 [id number] Shaunna Saunders [place] [address],[place] [address] 03/21/2023 14:10:32 03/21/2023 14:54:25 Urinary symptoms 038492600 R39.9 Suspect UTI with subjective complaints and WBC's/Bloo d on dip.Will send for culture.If comes back negative we will stop abx; if needs to change abx will refer to C&S report. Time spent in visit is a total of 15 mins with at least 50% of visit consisting of counseling and review of plan of care. [id number] Vida Duncan [facility] [address] [address] 02/04/2024 15:31:01 02/04/2024 16:16:32 Dysuria 31651553 R30.0 Urinary tr act infectious disease 37340180 N39.0 Health Concerns Section Related Observation LastModified by Organization Detai ls LastModified Time None Recorded Concern Status LastModified by Organization Details LastModified Time None Recorded Advance Directives Directive N: Payers Encounter Date Sequence Insurance Name Policy Number Policy Zamora Covered Member ID Zamora Member ID Guarantor Name 01/04/2022 2 [employer] (MEDICARE SUPPLEMENT) Geovanna Hellrich [id number] Geovanna Hellrich 01/04/2022 1 [place] Geovanna Hellrich [id number] Geovanna Hellrich 02/22/2022 2 [employer] OPTIONS (MEDICARE SUPPLEMENT) Geovanna Hellrich [id number] Gevoanna Hellrich 02/22/2022 1 [place] Geovanna Hellrich [id number] Geovanna Hellrich 03/12/2022 2 [employer] OPTIONS (MEDICARE SUPPLEMENT) Geovanna Hellrich [id number] Geovanna Hellrich 03/12/2022 1 [place] Geovanna Hellrich [id number] Geovanna Hellrich 03/21/2023 2 [employer] OPTIONS (MEDICARE SUPPLEMENT) Geovanna Hellrich [id number] Geovanna Hellrich 03/21/2023 1 [place] Geovanna Hellrich [id number] Geovanna Hellrich 02/04/2024 2 [employer] OPTIONS (MEDICARE SUPPLEMENT) Geovanna Hellrich [id number] Geovanna Hellrich 02/04/2024 1 [place] Geovanna Hellrich [id number] Geovanna Hellrich Notes Date Note Type Note Provider Name and Address Organization Details Recorded Time 03/12/2022 text/html Here today for recurrent UTI's.Very frustrated with recurrent UTI (e.coli & enterococos)Three between to present time; and today still feeling midline pelvic pressure and frequency. Feels urine has odor.Voids q2-4hrsFeels as if her bladder emptiesUrine amount during each bathroom visit varies.Neg dysuriaNeg bladder painNeg N/V/F/C/D Shaunna Saunders [facility] [address], [place], [address], [facility] 03/18/2022 10:50:12 03/21/2023 text/html Here today for urinary sx's of bladder pressure/flank pain/urgency/cloud y urine. Neg pain of abd/pelvis/flankNe g dysuriaNeg GI sx'sNeg N/V/F/C/DNeg Vag d/c, odor, irritation, itching Shaunna Saunders [facility] [address], [place], [address], [facility] 03/21/2023 14:52:41 OBGyn Episode Ob Episode Information Episode Created Date Number of Fetuses Patient Bloodtype Patient rh Status Prepregnancy Weight lbs Domestic Partner Domestic Partner Phone Father Name Air Traffic Systems Technician Status 03/12/20 22 1 CLOSED Fetus Data First Name Last Name Admitted to NICU Weight (g) Sex Living Outcome Pediatric Complications Fetus ID Race Codes Race Delivery Type 4365.82 3 M Full Term [id number] Vaginal Delivery Artur Calculation Initial Artur Date Initial Exam Date Initial Exam Provider Initial Ultrasound Date Last Menstrual Period Date Ultra Sound Weeks Gestation 0 Eighteen To Twenty Week Artur Update Ultra Sound Date Fundal Height At Umbil Quickening Date Ultra Sound Latest Weeks Gestation Final Artur Confirmed By Final Artur Confirmed Date Final Artur Date Ultra Sound Latest Days Gestation 0 0 Menstrual History Last Menstrual Date Menses Monthly On Bcp Conception Prior Menses Frequency Hcg Plus Date Menarche Onset Age Delivery Information Delivery Date Delivery Type Labor Anesthesia Weeks Gestation Incision Type Labor Labor Length Hrs Delivered By Post Complications Tubal Sterilization Discharge Date Comments 6 40 Discharge Information Feeding Method Contraceptive Method Maternal HG B and HCT Levels Ob Episode Information Episode Created Date Number of Fetuses Patient Bloodtype Patient rh Status Prepregnancy Weight lbs Domestic Partner Domestic Partner Phone Father Name Air Traffic Systems Technician Status 03/12/20 22 1 CLOSED Fetus Data First Name Last Name Admitted to NICU Weight (g) Sex Living Outcome Pediatric Complications Fetus ID Race Codes Race Delivery Type 2919.77 [id number] F Full Term [id number] Vaginal Delivery Artur Calculation Initial Artur Date Initial Exam Date Initial Exam Provider Initial Ultrasound Date Last Menstrual Period Date Ultra Sound Weeks Gestation 0 Eighteen To Twenty Week Artur Update Ultra Sound Date Fundal Height At Umbil Quickening Date Ultra Sound Latest Weeks Gestation Final Artur Confirmed By Final Artru Confirmed Date Final Artur Date Ultra Sound Latest Days Gestation 0 0 Menstrual History Last Menstrual Date Menses Monthly On Bcp Conception Prior Menses Frequency Hcg Plus Date Menarche Onset Age Delivery Information Delivery Date Delivery Type Labor Anesthesia Weeks Gestation Incision Type Labor Labor Length Hrs Delivered By Post Complications Tubal Sterilization Discharge Date Comments 2 40 Discharge Information Feeding Method Contraceptive Method Maternal HG B and HCT Levels Ob Episode Information Episode Created Date Number of Fetuses Patient Bloodtype Patient rh Status Prepregnancy Weight lbs Domestic Partner Domestic Partner Phone Father Name Air Traffic Systems Technician Status 03/12/20 22 1 CLOSED Fetus Data First Name Last Name Admitted to NICU Weight (g) Sex Living Outcome Pediatric Complications Fetus ID Race Codes Race Delivery Type , Spontane ous [id number] Artur Calculation Initial Artur Date Initial Exam Date Initial Exam Provider Initial Ultrasound Date Last Menstrual Period Date Ultra Sound Weeks Gestation 0 Eighteen To Twenty Week Artur Update Ultra Sound Date Fundal Height At Umbil Quickening Date Ultra Sound Latest Weeks Gestation Final Artur Confirmed By Final Artur Confirmed Date Final Artur Date Ultra Sound Latest Days Gestation 0 0 Menstrual History Last Menstrual Date Menses Monthly On Bcp Conception Prior Menses Frequency Hcg Plus Date Menarche Onset Age Delivery Information Delivery Date Delivery Type Labor Anesthesia Weeks Gestation Incision Type Labor Labor Length Hrs Delivered By Post Complications Tubal Sterilization Discharge Date Comments 4 Discharge Information Feeding Method Contraceptive Method Maternal HG B and HCT Levels Ob Episode Information Episode Created Date Number of Fetuses Patient Bloodtype Patient rh Status Prepregnancy Weight lbs Domestic Partner Domestic Partner Phone Father Name Air Traffic Systems Technician Status 03/12/20 22 1 CLOSED Fetus Data First Name Last Name Admitted to NICU Weight (g) Sex Living Outcome Pediatric Complications Fetus ID Race Codes Race Delivery Type , Spontane ous [id number] Artur Calculation Initial Artur Date Initial Exam Date Initial Exam Provider Initial Ultrasound Date Last Menstrual Period Date Ultra Sound Weeks Gestation 0 Eighteen To Twenty Week Artur Update Ultra Sound Date Fundal Height At Umbil Quickening Date Ultra Sound Latest Weeks Gestation Final Artur Confirmed By Final Artur Confirmed Date Final Artur Date Ultra Sound Latest Days Gestation 0 0 Menstrual History Last Menstrual Date Menses Monthly On Bcp Conception Prior Menses Frequency Hcg Plus Date Menarche Onset Age Delivery Information Delivery Date Delivery Type Labor Anesthesia Weeks Gestation Incision Type Labor Labor Length Hrs Delivered By Post Complications Tubal Sterilization Discharge Date Comments 3 Discharge Information Feeding Method Contraceptive Method Maternal HG B and HCT Levels
--- OUTSIDE RECORDS SUMMARY | 2024-04-29 16:16 | XMS_ITS | Clinical Summary ---
Author Organization [facility] Address [address] [place] [address] Phone Care Team Providers Care Zipper Ironer Name Role Phone SheldonTee Primary Care Provider [phone] Allergies Active Allergy Reactions Criticality Noted Date Comments Aspirin Nausea and Vomiting Low 03/04/2014 Medications calcium Phosphate-Amanda min D3 105-120 mg-unit Tablet Take by mouth. Active multivitamin (DAILY-CHACORTA) tablet Take 1 Tab by mouth daily. Active diazepam (VALIUM) 5 mg tablet Take 5 mg by mouth every 12 hours as needed for Anxiety. Active diclofenac sodium (VOLTAREN) 1 % gel Apply to affected area 4 times daily. Active ibuprofen (ADVIL;MOTRIN) 100 mg/5 mL suspension Take by mouth every 6 hours as needed for Pain, Mild. Active lidocaine (LIDODERM) 5 % Adhesive Patch, Medicated Apply 1 Patch to affected area every 24 hours. Active SUMAtriptan (IMITREX) 100 mg tablet Take 100 mg by mouth see administration instructions. may repeat in 2 hours; max dose 200mg in 24 hours Active HYDROcodone-ac etaminophen (NORCO) 5-325 mg tablet Take 1 Tab by mouth every 4 hours as needed for Pain, Moderate. Active ondansetron (ZOFRAN) 4 mg Tablet Take 4 mg by mouth every 8 hours as needed for Nausea/Emesis. Active Active Problems No known active problems Social History Tobacco Use Types Packs/Day Years Used Date Smoking Tobacco: Former Cigarettes 0.5 20 0 01/02/1994 - 01/02/2014 Alcohol Use Standard Drinks/Week Comments Yes 0 (1 standard drink = 0.6 oz pur e alcohol) rare Comments No Sex and Gender Information Value Date Recorded Sex Assigned at Not on file Legal Sex Female 1:09 PM COMMUNITY RELATIONS MANAGER Gender Identity Not on file Sexual Orientation Not on file Occupation Industry Job Start Date Job End Date Not on file Not on file Not on file Not on file Last Filed Vital Signs Vital Sign Reading Time Taken Comments Blood Pressure 90/54 03/09/2014 11:00 AM COMMUNITY RELATIONS MANAGER Pulse 58 03/09/2014 11:00 AM COMMUNITY RELATIONS MANAGER Temperature 36.1 ??C (97 ??F) 03/09/2014 11: 00 AM COMMUNITY RELATIONS MANAGER Respiratory Rate 18 03/09/2014 11:0 0 AM COMMUNITY RELATIONS MANAGER Oxygen Saturation 97% 03/09/2014 11: 00 AM COMMUNITY RELATIONS MANAGER Inhaled Oxygen Concentration - - Weight 56.2 kg (123 lb 12.8 oz) 03/09/2014 7:19 AM COMMUNITY RELATIONS MANAGER Height 165.1 cm (5' 5 ) 03/04/2014 12:3 8 PM COMMUNITY RELATIONS MANAGER Body Mass Index 20.6 03/04/2014 12:38 PM COMMUNITY RELATIONS MANAGER Plan of Treatment Health Maintenance Due Date Last Done Comments DTAP/TDAP/TD VACCINES (1 - Tdap) 09/27/1971 BREAST CANCER SCREENING 1992 COLORECTAL SCREENING 1997 Colorectal Cancer Screening 1997 FIT-DNA Q 3 years 1997 FIT/FOBT Q 1 year 1997 Flex Sig/CT Colonography Q 5 years 1997 PNEUMOCOCCAL VACCINE 65+ YEARS (1 of 1 - PCV) 09/27/19 03 ZOSTER VACCINE (1 of 2) 2002 OSTEOPOROSIS SCREENING 2017 INFLUENZA VACCINE (#1) 2023 RSV VACCINE (60+ or ) (1 - 1-dose 75+ series) 09/27/2027 Insurance MEDICARE PART A AND B [facility] Advance Directives For more information, please contact: [phone] * Full Code (Latest Code Status on File) Date Activated Date Inactivated Comments 03/09/2014 8:53 AM 03/09/2014 1:14 PM * Full Code Date Activated Date Inactivated Comments 03/09/2014 8:17 AM 03/09/2014 8:53 AM * Full Code Date Activated Date Inactivated Comments 03/09/2014 7:21 AM 03/09/2014 8:17 AM Care Teams Zipper Ironer Relationship Specialty Start Date End Date Tee Chung DO [address] [id number] PCP - General Internal Medicine 02/25/14
--- OUTSIDE RECORDS SUMMARY | 2024-04-29 16:16 | XMS_ITS | Clinical Summary ---
Author Organization [facility] Facility Address [address] [place] [id number] Care Team Providers Care Peoplesoft Crm Developer Name Role Phone Unavailable Primary Care Provider Unavailabl e Social History Tobacco Use Types Packs/Day Years Used Date Smoking Tobacco: Every Day Alcohol Use Standard Drinks/Week Comments Yes 0 (1 standard drink = 0.6 oz pure alcohol) Alcoholic Drinks/day: Occasional social drink Comments Unknown Sex and Gender Information Value Date Recorded Sex Assigned at Not on file Legal Sex Female 2:49 PM EDT Gender Identity Not on file Sexual Orientation Not on file Plan of Treatment Health Maintenance Due Date Last Done Comments Breast Cancer Screening 1952 Pneumococcal Vaccine: 65+ Ye ars (1 of 2 - PCV) 1958 Colorectal Cancer Screening: Annual FOBT 2001 Colorectal Cancer Screening: Colonoscopy 2001 Colorectal Cancer Screening: Sigmoidoscopy 2001 Influenza Vaccine (#1) 2023 Hepatitis B Vaccine Aged Out No longe r eligible based on patient's age to complete this topic
--- OUTSIDE RECORDS SUMMARY | 2024-04-29 16:16 | XMS_ITS | Patient Health Summary ---
Author Organization [facility] Address [address] [place] [address] Care Team Providers Care Tower Dragline Operator Name Role Phone Radha Enriquez DO Primary Care Provider [phone] Note from [facility],non-owned Affiliates and Associated Physician Practices is amultiple site organization consisting of ambulatory clinics and hospital sitesin [place], [place], [place] and [place]. This disclosure is being madepursuant to the Care Everywhere program and may not contain all information available regarding this patient. Last updated 17.[facility] Allergies * Aspirin(Nausea and/or Vomiting) -Low Criticality * Celecoxib(GI Discomfort) * Peg-Electrolyte Soln(Nausea and/or Vomiting) * Duloxetine(Palpitations,Other) -High Criticality * Hydroxychloroquine(Unknown) * Hydroxychloroquine Sulfate(Nausea and/or Vomiting) -Low Criticality * Modafinil(Shortness of Breath) -High Criticality * Nabumetone(Unknown) -Low Criticality * Nsaids(Nausea and/or Vomiting) * Kdc:Milnacipran+Ci Pigment Blue 63(Nausea and/or Vomiting) -Low Criticality * Milnacipran(Unknown) * Sertraline(Palpitations) -Low Criticality * Sulindac(Other) Medications * Be aware that medications may not be up to date on this document. Alwaysverify current medications with the patient. * omeprazole (PRILOSEC) 20 MG capsule(Started 10/07/2017) Take by mouth 2 times daily as needed * SUMAtriptan (IMITREX) 100 MG tablet(Started 11/21/2017) Take by mouth as needed Once at onset of migraine. May repeat in 2 hrs if needed. * vitamin D3 (CHOLECALCIFEROL) 1000 UNIT capsule Take 6 (six) capsules by mouth once daily * Multiple Vitamin (MULTIVITAMIN+ PO) Take by mouth once daily * HYDROcodone-acetaminophen (NORCO) 7.5-325 MG tablet .5 tablet bid prn * Magnesium Hydroxide (MILK OF MAGNESIA PO) * lidocaine (XYLOCAINE) 5 % ointment(Started 02/02/2018) APPLY SUFFICIENT AMOUNT TO AFFECT AREA DIRECTED 5 refills left * ondansetron (Zofran) 4 MG tablet Take 1 (one) tablet by mouth every 6 hours as needed for Nausea/Vomiting * Probiotic Product (ALIGN PO) Take by mouth once daily Reasons: 28/10 Probiotic * calcium 600 MG tablet Take 1 (one) tablet by mouth daily with food * mometasone 0.1 % cream - AQUAPHOR ointment 50:50 CREA Apply to affected area 2 times daily Reasons: PRN left outer ear * TOBRAMYCIN-DEXAMETHASONE OP by Ophthalmic route 2 times daily Reasons: PRN for left eye infection * Hypromellose (ARTIFICIAL TEARS OP) by Ophthalmic route once daily * Polyethyl Glycol-Propyl Glycol (SM LUBRICATING TEARS OP) by Ophthalmic route 3 times daily Reasons: PRN * pimecrolimus (ELIDEL) 1 % cream(Started 06/10/2018) Apply to face twice a day. 30 days supply. 3 refills remaining * diclofenac sodium (Voltaren) 1 % gel * hydrOXYzine HCl (Atarax) 50 MG tablet(Started 11/28/2021) Take 1 (one) tablet by mouth anxiety * clopidogrel (Plavix) 75 MG tablet(Started 08/08/2021) Take 1 (one) tablet by mouth every 24 hours Active Problems Problem Noted Date Diagnosed Date Groin pain 02/11/2022 Acute bilateral knee pain 09/17/2021 Breast swelling 08/06/2021 Traumatic incomplete tear of left rotator cuff 0 06/19/2021 Adrenal insufficiency 09/28/2020 Goiter 07/25/2020 Dermatochalasis of both upper eyelids 06/03/2019 Varicose veins of other specified sites 02/23/20 19 09/27/2022 Muscle weakness (generalized) 11/24/2017 Tremors of nervous system 11/24/2017 Urge incontinence 04/26/2016 Vaginal atrophy 04/26/2016 Gastritis 11/20/2015 Tricuspid valve insufficiency 11/20/2015 Dizziness and giddiness 10/10/2015 Elevated rheumatoid factor 10/10/2015 Abnormal gait 09/18/2015 Abnormal involuntary movement 09/06/2015 Common migraine with intractable migraine 2015 Mild cognitive disorder 09/06/2015 Degeneration of intervertebral disc of lumbar re gion 02/24/2015 Migraine headache 02/24/2015 Lumbar radiculopathy 02/24/2015 Fibrositis 08/21/2013 Raynaud's phenomenon 08/21/2013 Fibromyalgia 03/01/2013 Viral hepatitis C 11/04/2011 Anxiety 11/04/2011 Osteoporosis 11/04/2011 Immunizations * FLU VACCINE QUAD IIV4 PF ID(Given 04/10/2016) * INFLUENZA VACCINE(Given 01/05/2018) Social History Tobacco Use Types Packs/Day Years [...] PM CDT Pulse 71 05/18/2019 12:50 PM BENDING MACHINE SET UP OPERATOR Temperature 36.4 ??C (97.6 ??F) 09/27/2022 1:17 PM CD T Respiratory Rate 16 04/26/2018 2:26 PM BENDING MACHINE SET UP OPERATOR Oxygen Saturation 96% 05/18/2019 12:50 PM BENDING MACHINE SET UP OPERATOR Inhaled Oxygen Concentration - - Weight 58.8 kg (129 lb 9.6 oz) 09/27/2022 1:17 P M CDT Height 165.1 cm (5' 5 ) 09/27/2022 1:17 PM CDT Body Mass Index 21.57 09/27/2022 1:17 PM CDT Procedures * URINALYSIS W/MICROSCOPIC NO CULTURE(Performed 04/17/2022) Performed for Microscopic hematuria * CULTURE URINE COMPREHENSIVE(Performed 04/17/2022) Performed for Recurrent UTI * MT INSERT NON-INDWELLING BLADDER(Performed 04/17/2022) Performed for Recurrent UTI * URINALYSIS AUTO - POINT OF CARE (AMB) [facility]U(Performed 04/17/2022) Performed for Recurrent UTI * PATHOLOGY/CYTOLOGY REPORT ORDER(Performed 08/11/2018) * DERMATOPATHOLOGY(Performed 07/16/2018) * NM BRAIN IMAGING SHAHAB SCAN(Performed 12/25/2017) Performed for Tremors of nervous system * THYROGLOBULIN(Performed 11/24/2017) Performed for Muscle weakness (generalized), Tremors of nervous system, Neuropathy, Myopathy, Dysphagia, unspecified type * ACETYLCHOLINE RECEPTOR MODULATING ANTIBODY(Performed 11/24/2017) Performed for Muscle weakness (generalized), Tremors of nervous system, Neuropathy, Myopathy, Dysphagia, unspecified type * ACETYLCHOLINE RECEPTOR BLOCKING ANTIBODY(Performed 11/24/2017) Performed for Muscle weakness (generalized), Tremors of nervous system, Neuropathy, Myopathy, Dysphagia, unspecified type * ACETYLCHOLINE RECEPTOR BINDING ANTIBODY(Performed 11/24/2017) Performed for Muscle weakness (generalized), Tremors of nervous system, Neuropathy, Myopathy, Dysphagia, unspecified type * PARANEOPLASTIC AUTOANTIBODY EVALUATION(Performed 11/24/2017) Performed for Muscle weakness (generalized), Tremors of nervous system, Myopathy, Dysphagia, unspecified type, Neuropathy * HEMOGLOBIN A1C(Performed 11/24/2017) Performed for Neuropathy * GLUTAMIC ACID DECARBOXYLASE (JONA) ANTIBODY(Performed 11/24/2017) Performed for Muscle weakness (generalized), Tremors of nervous system * PATHOLOGY/CYTOLOGY REPORT ORDER(Performed 07/29/2017) * MUSCLE BIOPSY(Performed 07/17/2017) Performed for Myopathy * PATHOLOGY TISSUE(Performed 07/17/2017) Performed for Myopathy * URINALYSIS - POINT OF CARE (AMB) [facility](Performed 04/26/2016) * CULTURE URINE COMPREHENSIVE(Performed 04/26/2016) * HEPATITIS C AB W/RFLX TO HCV RNA QN PCR(Performed 09/08/2015) * MEZA (SM) ANTIBODY EDGAR(Performed 09/08/2015) * BETA-2 GLYCOPROTEIN 1 ANTIBODY IGG/IGM/IGA PANEL(Performed 09/08/2015) * CARDIOLIPIN ANTIBODY IGA/IGG/IGM PANEL(Performed 09/08/2015) * LUPUS ANTICOAGULANT PANEL W RFLX(Performed 09/08/2015) * VITAMIN D 25-HYDROXY D2+D3(Performed 09/08/2015) * HEPATITIS B SURFACE ANTIGEN W RFLX CONFIRMATION(Performed 09/08/2015) * CYCLIC CITRULLINATED PEPTIDE(CCP) AB IGG(Performed 09/08/2015) * COMPLEMENT C3(Performed 09/08/2015) * COMPLEMENT C4(Performed 09/08/2015) * COMPLEMENT TOTAL(Performed 09/08/2015) * NIXON COMPREHENSIVE PLUS PROFILE(Performed 09/08/2015) * URIC ACID BLOOD(Performed 09/08/2015) * ALDOLASE(Performed 09/08/2015) * TSH HI LOW REFLEX FREE T4(Performed 09/08/2015) * CK BLOOD(Performed 09/08/2015) * ERYTHROCYTE SEDIMENTATION RATE(Performed 09/08/2015) * COMPREHENSIVE METABOLIC PANEL(Performed 09/08/2015) * CBC W AUTO DIFFERENTIAL(Performed 09/08/2015) * C-REACTIVE PROTEIN(Performed 09/08/2015) * URINALYSIS W/MICROSCOPIC NO CULTURE(Performed 09/08/2015) * HISTONE ANTIBODY(Performed 09/08/2015) * LDH BLOOD(Performed 09/08/2015) * DNA ANTIBODY DOUBLE STRANDED(Performed 09/08/2015) * RIBOSOMAL P PROTEIN ANTIBODY(Performed 09/08/2015) * MPO + PR3 W/ REFLEX ANCA(Performed 09/08/2015) * CHROMATIN ANTIBODY(Performed 09/08/2015) * XR FOOT RIGHT 3VW OR MORE(Performed 08/21/2015) * XR HAND LEFT 3VW OR MORE(Performed 08/21/2015) * XR HAND RIGHT 3VW OR MORE(Performed 08/21/2015) * XR SI JOINTS 2VW OR LESS(Performed 08/21/2015) * XR FOOT LEFT 3VW OR MORE(Performed 08/21/2015) * DERMATOPATHOLOGY(Performed 06/08/2015) * DNA ANTIBODY DS CRITHIDIA IFA(Performed 03/02/2013) * VITAMIN D 25-HYDROXY D2+D3(Performed 03/02/2013) * C-REACTIVE PROTEIN(Performed 03/02/2013) * THYROGLOBULIN ANTIBODY(Performed 03/02/2013) * THYROID PEROXIDASE ANTIBODY(Performed 03/02/2013) * DNA ANTIBODY DOUBLE STRANDED(Performed 03/02/2013) * ERYTHROCYTE SEDIMENTATION RATE(Performed 03/02/2013) * COMPREHENSIVE METABOLIC PANEL(Performed 03/02/2013) * CBC W AUTO DIFFERENTIAL(Performed 03/02/2013) * LAB HISTORICAL RESULTS-ONBASE(Performed 02/26/2013) * DNA ANTIBODY DS CRITHIDIA IFA(Performed 09/02/2012) * VITAMIN D 25-HYDROXY D2+D3(Performed 09/02/2012) * HISTONE ANTIBODY(Performed 09/02/2012) * NIXON BLOOD SCREEN W/REFLEX TITER(Performed 09/02/2012) * SS-B (SJOGREN'S) ANTIBODY(Performed 09/02/2012) * SS-A (SJOGREN'S) ANTIBODY(Performed 09/02/2012) * MEZA (SM) ANTIBODY EDGAR(Performed 09/02/2012) * CHROMATIN ANTIBODY(Performed 09/02/2012) * DNA ANTIBODY DOUBLE STRANDED(Performed 09/02/2012) * SCLERODERMA 70 (SCL) ANTIBODY(Performed 09/02/2012) * ALDOLASE(Performed 09/02/2012) * CK BLOOD(Performed 09/02/2012) * TSH(Performed 09/02/2012) * LAB HISTORICAL RESULTS-ONBASE(Performed 08/21/2012) * T4 FREE DIRECT DIALYSIS(Performed 11/05/2011) * T3 FREE DIALYSIS LC/MS(Performed 11/05/2011) * THYROID PEROXIDASE ANTIBODY(Performed 11/05/2011) * TSH(Performed 11/05/2011) * LAB HISTORICAL RESULTS-ONBASE(Performed 08/12/2011) Results * URINALYSIS W/MICROSCOPIC NO CULTURE (04/17/2022 2:33 PM BENDING MACHINE SET UP OPERATOR) Only the most recent of2 resultswithin the time period is included. Color UA YELLOW YELLOW [facility] Appearance CLEAR CLEAR [facility] Specific [place] UA 1.004 1.001 - 1.035 [facility] pH UA 7.0 5.0 - 8.0 [facility] Glucose UA NEGATIVE NEGATIVE [facility] Bilirubin UA NEGATIVE NEGATIVE [facility] Ketone UA NEGATIVE NEGATIVE [facility] Blood UA NEGATIVE NEGATIVE [facility] Protein UA NEGATIVE NEGATIVE [facility] Nitrite UA NEGATIVE NEGATIVE [facility] Leukocyte UA NEGATIVE NEGATIVE [facility] WBC UA NONE SEEN < OR = 5 /HPF [facility] RBC UA NONE SEEN < OR = 2 /HPF [facility] Epithelial Cell UA NONE SEEN < OR = 5 /HPF [facility] Bacteria UA NONE SEEN NONE SEEN /HPF [facility] Hyaline Casts NONE SEEN NONE SEEN /LPF [facility] Comment: Test Performed at: [facility] [id number] [place] [address] ??[id number] MAKAYLA KIMBROUGH MD Urine URINE SPECIMEN COLLECTION, CATHETERIZED / Unknown 04/17/2022 2:33 PM BENDING MACHINE SET UP OPERATOR 04/19/2022 12:05 AM BENDING MACHINE SET UP OPERATOR Yonathan Ladd MD LAB - URINALYSIS ORD ERABLES Performing Organization Address [facility] de Phone Number [address] [address] * CULTURE URINE COMPREHENSIVE (04/17/2022 2:31 PM BENDING MACHINE SET UP OPERATOR) Only the most recent of2 resultswithin the time period is included. Culture [facility] Comment: ??CULTURE, URINE, SPECIAL ?Micro Number: ?[id number] ??Test Status: ? Final ??Specimen Source: ?? Urine cathet ??Specimen Quality: ??Adequate ??Result: ?No Growth Test Performed at: [facility] ??[phone] MAKAYLA KIMBROUGH MD Microbiology URINE SPECIMEN COLLECTION, CATHETERIZED / Unknown 04/17/2022 2:31 PM BENDING MACHINE SET UP OPERATOR 04/19/2022 4:13 AM BENDING MACHINE SET UP OPERATOR Yonathan Ladd MD LAB - MICROBIOLOGY O RDERABLES Performing Organization Address [facility] de Phone Number [address] [address] * MT INSERT NON-INDWELLING BLADDER (04/17/2022 2:30 PM BENDING MACHINE SET UP OPERATOR) Narrative Yonathan Ladd Che, MD - 04/17/2022 2:30 PM BENDING MACHINE SET UP OPERATOR Yonathan Ladd Che, MD ? 04/17/2022 ??2:31 PM The patient was prepped with betadine (or with hibiclens or other antiseptic agent if allergic to topical iodine). She understood the rationale for the procedure and agreed to the procedure. A 14F short female catheter was then advanced into the urethra and urine was collected for bedside urinalysis as well as a urine culture and/or formal urinalysis as needed. The post void residual is as noted in the progress note, as are results of the dipstick taken. The patient tolerated the procedure well. Yonathan Ladd MD PROCEDURE/MINOR SURG ICAL ORDERABLES * (ABNORMAL) URINALYSIS AUTO - POINT OF CARE (AMB) [facility] (04/17/2022) Glucose UA neg Bilirubin UA POCT neg Ketones UA POCT neg Specific [place] UA 1.005 Blood Urine POCT + pH UA 6.0 Protein UA neg Urobilinogen UA 0.2 Nitrite UA neg WBC UA neg Urine URINE / Unknown 04/17/2022 Yonathan Ladd MD LAB - POINT OF CARE ORDERABLES * PATHOLOGY/CYTOLOGY REPORT ORDER (08/11/2018 11:23 AM CDT) Only the most recent of2 resultswithin the time period is included. Narrative 08/11/2018 11:23 AM CDT Ordered by an unspecified provider. Scanned Document LAB - PATHOLOGY/CYTO LOGY ORDERABLES * DERMATOPATHOLOGY (07/16/2018 12:00 AM CDT) Only the most recent of2 resultswithin the time period is included. Case Report Dermatopathology Report ? Case: [id number] ? Authorizing Provider: ??Serge Hawley MD ?Collected: ? 07/16/2018 12:00 AM ? Pathologist: ? Payal Lucero MD ? Received: ?07/17/2018 11:34 AM ? Specimen: ?Skin, left upper arm ? 1:58 PM [facility] DERMATOPATHOLOGY LABORATORY Final Diagnosis Specimen A. SKIN, left upper arm: EPIDERMOID CYST WITH HYPERTROPHIC SCAR (L72.0) (L91.0) NOT PRESENT AT MARGIN (see microscopic description) 1:58 PM [facility] DERMATOPATHOLOGY LABORATORY Clinical History Lesion. Check margins. 1:58 PM [facility] DERMATOPATHOLOGY LABORATORY Gross Description Specimen A: Received is one formalin filled container labeled with the patient's name and designated left upper arm. The specimen consists of a non-oriented ellipse of skin measuring 11f7b6ft. The epidermal surface consists of a centrally located 7g3v6km erosion. The margin is inked green. The 12 o'clock and 6 o'clock tips are submitted in cassette 1. The remainder of the ellipse is serially sectioned and submitted in cassettes 2-3. Jar 0. 1:58 PM [facility] DERMATOPATHOLOGY LABORATORY Microscopic Description Specimen A. SKIN, left upper arm: Within the dermis, there is a space lined by epithelium that resembles normal epidermis and the infundibular portion of the hair follicle. There are collagenous nodules of fibroblasts and collagen bundles oriented parallel to one another. Desmin is performed to exclude a proliferation with muscle differentiation and is negative in the collagenous nodules. The cyst is not present at the margin of the specimen. 1:58 PM [facility] DERMATOPATHOLOGY LABORATORY Disclaimer An external and internal positive and negative controls are appropriate for the histochemical, immunohistochemical and immunofluorescence stain(s) in this case (if any), except where stated explicitly. The performance characteristics of the stain(s) cited in this report were developed and its performance characteristic determined by the Dermatopathology Laboratory at [facility], directed by Dr. Mary Celaya. These tests need not be, and therefore are not, approved by the [place] Food and Drug Administration. The tests are used for clinical purposes. Billing Codes Specimen Charges Stain Charges 18282 1 91455 1 1:58 PM CDT DERMATOPATHOLOGY LABORATORY Embedded Images 1:58 PM [facility] DERMATOPATHOLOGY LABORATORY Pathology/Cytolog y TISSUE SPECIMEN FROM SKIN / Unknown 07/16/2018 07/17/2018 11:34 AM CDT Serge Hawley MD LAB - PATHOLOGY/CYTO LOGY ORDERABLES DERMATOPATHOLOGY LABORATORY [facility] - Department of Dermatology [address] [place] [address], [facility] [phone] * NM BRAIN IMAGING SHAHAB SCAN (12/25/2017 3:43 PM CDT) Anatomical Region Laterality Modality Nuclear Medicine 12/25/2017 3:52 PM CDT Impressions 12/25/2017 4:21 PM CDT Impression: Mildly reduced uptake in the putamen but the comma shape is retained. Findings are not supportive of parkinsonian syndromes. This report was approved ??by Mat Paul ?? on 12/25/2017 4:07 PM . I, Dr. MT BENITO D.O. have personally reviewed and interpreted this examination/study. This report was electronically signed by MT BENITO D.O. ??on 12/25/2017 4:21 PM . Narrative 12/25/2017 4:21 PM CDT Procedure: Dopamine transporter (DaTscan) brain SPECT/CT History: 67-year-old female patient with tremors, stiffness, ataxia and family history of Parkinson's disease. Technique: 45 minutes after oral administration of SSKI for thyroid blockade, 5.0 mCi I-123 Ioflupane was administered intravenously in the left antecubital fossa. Three hours later, tomographic whole brain SPECT/CT imaging was performed. Patient's height 165; weight 118. Low-dose noncontrast CT for attenuation correction was performed. Findings: ??No prior study is available for comparison. Uptake in the striatum appears as follows: Left caudate nucleus head: Normal Right caudate nucleus head: Normal Left putamen: Mildly reduced Right putamen: Mildly reduced Comma shape is retained. Procedure Note [place], - 12/25/2017 Procedure: Dopamine transporter (DaTscan) brain SPECT/CT History: 67-year-old female patient with tremors, stiffness, ataxia and family history of Parkinson's disease. Technique: 45 minutes after oral administration of SSKI for thyroid blockade, 5.0 mCi I-123 Ioflupane was administered intravenously in the left antecubital fossa. Three hours later, tomographic whole brain SPECT/CT imaging was performed. Patient's height 165; weight 118.Low-dose noncontrast CT for attenuation correction was performed. Findings: No prior study is available for comparison. Uptake in the striatum appears as follows: Left caudate nucleus head: Normal Right caudate nucleus head: Normal Left putamen: Mildly reduced Right putamen: Mildly reduced Comma shape is retained. Impression: Mildly reduced uptake in the putamen but the comma shape is retained. Findings are not supportive of parkinsonian syndromes. This report was approved by Mat Paul on 12/25/2017 4:07 PM . I, Dr. MT BENITO D.O. have personally reviewed and interpreted this examination/study. This report was electronically signed by MT BENITO D.O. on12/25/2017 4:21 PM . Darling Mckeon MD NM ORDERABLES * ACETYLCHOLINE RECEPTOR MODULATING ANTIBODY (11/24/2017 3:45 PM CDT) [facility] Acetylcholine Modulating Antibody <12 0 - 20 % 11/30/2017 11:06 AM CDT [facility] ([facility]) Comment: ?Negative: ?<21 ?Equivocal: ? 21 - 25 ?Positive: ?>25 The assay is linear between values of 12 and 64. Those <12 and >64 are reported as such. ??No single value for ACR-modulating antibody should be used as a sole basis for diagnosis or response to therapy. Blood BLOOD SPECIMEN / Unknown Lab Venipuncture / Unknown 11/24/2017 3:45 PM CDT 11/24/2017 4:07 PM CDT [facility] - 11/30/2017 11:06 AM CDT Performed at: ??01 - [address] ??[id number] Brim Presser: Saad Duffy MD, Phone: ??[phone] Darling Mckeon MD LAB - SEROLOGY ORDER ROSA [facility] ([facility]) [address] [place] [address] * ACETYLCHOLINE RECEPTOR BLOCKING ANTIBODY (11/24/2017 3:45 PM CDT) [facility] Acetylcholine Blocking Antibody 18 0 - 25 % 11/28/2017 4:26 PM CDT [facility] ([facility]) Comment: ? Negative: ?0 - 25 ? Borderline: ?? 26 - 30 ? Positive: ? >30 Results for this test are for research purposes only by the assay's vegetable washer. ??The performance characteristics of this product have not been established. ??Results should not be used as a diagnostic procedure without confirmation of the diagnosis by another medically established diagnostic product or procedure. Blood BLOOD SPECIMEN / Unknown Lab Venipuncture / Unknown 11/24/2017 3:45 PM CDT 11/24/2017 4:13 PM CDT [facility] - 11/28/2017 4:26 PM CDT Performed at: ??01 - [address] ??[id number] Brim Presser: Saad Duffy MD, Phone: ??[phone] Darling Mckeon MD LAB - SEROLOGY ORDER ROSA Performing Organization Address [facility] de Phone Number [facility]) [address] [place] [address] * ACETYLCHOLINE RECEPTOR BINDING ANTIBODY (11/24/2017 3:45 PM CDT) [facility] Acetylcholine Binding Antibody <0.03 0.00 - 0.24 nmol/L 11/26/2017 3:17 PM CDT [facility] ([facility]) Comment: ? Negative: ?? 0.00 - 0.24 ? Borderline: 0.25 - 0.40 ? Positive: ?> 0.40 Blood BLOOD SPECIMEN / Unknown Lab Venipuncture / Unknown 11/24/2017 3:45 PM CDT 11/24/2017 4:09 PM CDT Narrative [facility] ([facility]) - 11/26/2017 3:17 PM CDT Performed at: ??01 - [address] ??[id number] Brim Presser: Saad Duffy MD, Phone: ??[phone] Darling Mckeon MD LAB - SEROLOGY ORDER ROSA Performing Organization Address [facility] de Phone Number [facility]) [address] [place] [address], [facility] * THYROGLOBULIN (11/24/2017 3:45 PM CDT) [facility] Thyroglobulin LCMS 12.4 1.5 - 38.5 ng/mL 11/27/2017 12:17 PM CDT [facility] ([facility]) Comment: According to the National Academy of Clinical Biochemistry, the reference interval for Thyroglobulin (TG) should be related to euthyroid patients and not for patients who underwent thyroidectomy. TG reference intervals for these patients depend on the residual mass of the thyoid tissue left after surgery. Establishing a post-operative baseline is recommended. The assay limit of quantitation is 0.2 ng/mL Blood BLOOD SPECIMEN / Unknown Lab Venipuncture / Unknown 11/24/2017 3:45 PM CDT 11/24/2017 4:09 PM CDT Narrative [facility] ([facility]) - 11/27/2017 12:17 PM CDT Performed at: ??01 - [address] ??[id number] Brim Presser: Saad Duffy MD, Phone: ??[phone] Darling Mckeon MD LAB - CHEMISTRY ALFREDO YOUNGER [facility] ([facility]) [address] [place] [address] * PARANEOPLASTIC AUTOANTIBODY EVALUATION (11/24/2017 3:41 PM CDT) Interpretive Comment Comment 12/05/2017 5:12 PM CDT [facility] ([facility]) Comment: Part of this testing algorithm includes [facility] [employer]' ??ARBI: Acetylcholine Receptor (Muscle AChR) Binding Antibody, Serum. This test is temporarily unavailable; therefore, this result is not incorporated into the interpretation. * No informative autoantibodies were detected in the Paraneoplastic Evaluation. However, a negative result does not exclude neurological autoimmunity with or without associated neoplasia. Sensitivity and specificity of antibody testing are enhanced by testing both serum and CSF. RIGOBERTO Type 1 Negative <1:240 titer 12/05/2017 5:12 PM CDT [facility] ([facility]) Reflex Added None. 12/05/2017 5:12 PM CDT [facility] ([facility]) Comment: ADDITIONAL INFORMATION This test was developed and its performance characteristics determined by [facility] in a manner consistent with CLIA requirements. This test has not been cleared or approved by the U.S. Food and Drug Administration. RIGOBERTO Type 2 Negative <1:240 titer 12/05/2017 5:12 PM CDT [facility] ([facility]) Comment: ADDITIONAL INFORMATION This test was developed and its performance characteristics determined by [facility] in a manner consistent with CLIA requirements. This test has not been cleared or approved by the U.S. Food and Drug Administration. RIGOBERTO Type 3 Negative <1:240 titer 12/05/2017 5:12 PM CDT [facility] ([facility]) Comment: ADDITIONAL INFORMATION This test was developed and its performance characteristics determined by [facility] in a manner consistent with CLIA requirements. This test has not been cleared or approved by the U.S. Food and Drug Administration. Glial Nuclear Antibody Type 1 Negative <1:240 titer 12/05/2017 5:12 PM CDT [facility] ([facility]) Comment: ADDITIONAL INFORMATION This test was developed and its performance characteristics determined by [facility] in a manner consistent with CLIA requirements. This test has not been cleared or approved by the U.S. Food and Drug Administration. Purkinje Cell Antibody Type 1 Negative <1:240 titer 12/05/2017 5:12 PM CDT [facility] ([facility]) Comment: ADDITIONAL INFORMATION This test was developed and its performance characteristics determined by [facility] in a manner consistent with CLIA requirements. This test has not been cleared or approved by the U.S. Food and Drug Administration. Purkinje Cell Cytop Antibody Type 2 Titer Negative <1:240 titer 12/05/2017 5:12 PM CDT [facility] ([facility]) Comment: ADDITIONAL INFORMATION This test was developed and its performance characteristics determined by [facility] in a manner consistent with CLIA requirements. This test has not been cleared or approved by the U.S. Food and Drug Administration. Purkinje Cell Antibody Type TR Negative <1:240 titer 12/05/2017 5:12 PM CDT [facility] ([facility]) Comment: ADDITIONAL INFORMATION This test was developed and its performance characteristics determined by [facility] in a manner consistent with CLIA requirements. This test has not been cleared or approved by the U.S. Food and Drug Administration. Amphiphysin Antibody S Titer Negative <1:240 titer 12/05/2017 5:12 PM CDT [facility] ([facility]) Comment: ADDITIONAL INFORMATION This test was developed and its performance characteristics determined by [facility] in a manner consistent with CLIA requirements. This test has not been cleared or approved by the U.S. Food and Drug Administration. CRMP-5 Antibody IgG Negative <1:240 titer 12/05/2017 5:12 PM CDT [facility] ([facility]) Comment: ADDITIONAL INFORMATION This test was developed and its performance characteristics determined by [facility] in a manner consistent with CLIA requirements. This test has not been cleared or approved by the U.S. Food and Drug Administration. Striated Muscle Antibody Titer Negative <1:120 titer 12/05/2017 5:12 PM CDT [facility] ([facility]) Comment: ADDITIONAL INFORMATION This test was developed and its performance characteristics determined by [facility] in a manner consistent with CLIA requirements. This test has not been cleared or approved by the U.S. Food and Drug Administration. Calcium Channel Antibody Type P/Q 0.00 <=0.02 nmol/L 12/05/2017 5:12 PM CDT [facility] ([facility]) Comment: ADDITIONAL INFORMATION This test was developed and its performance characteristics determined by [facility] in a manner consistent with CLIA requirements. This test has not been cleared or approved by the U.S. Food and Drug Administration. Calcium Channel Antibody Type N 0.00 <=0.03 nmol/L 12/05/2017 5:12 PM CDT [facility] ([facility]) Comment: ADDITIONAL INFORMATION This test was developed and its performance characteristics determined by [facility] in a manner consistent with CLIA requirements. This test has not been cleared or approved by the U.S. Food and Drug Administration. Acetylcholine Binding Antibody Comment <=0.02 nmol/L 12/05/2017 5:12 PM CDT [facility] ([facility]) Comment: Due to reagent unavailability, ARBI: Acetylcholine Receptor (Muscle AChR) Binding Antibody, Serum, will not be performed at [facility]. If Acetylcholine Receptor Binding Antibody testing is desired, please order FABAB: Acetylcholine Receptor Binding Antibody, which is performed at another laboratory. Given the differences in assay methodologies, direct comparison of quantitative results is not possible. Interpretation of these results should be made within the clinical context. ??If any concerns arise, laboratory consultation in regards to these results is available by calling . ADDITIONAL INFORMATION This test was developed and its performance characteristics determined by [facility] in a manner consistent with CLIA requirements. This test has not been cleared or approved by the U.S. Food and Drug Administration. Ganglionic Neuronal Antibody 0.00 <=0.02 nmol/L 12/05/2017 5:12 PM CDT [facility] ([facility]) Comment: ADDITIONAL INFORMATION This test was developed and its performance characteristics determined by [facility] in a manner consistent with CLIA requirements. This test has not been cleared or approved by the U.S. Food and Drug Administration. Voltage Gated Potassium Antibody 0.00 <=0.02 nmol/L 12/05/2017 5:12 PM CDT [facility] ([facility]) Comment: ADDITIONAL INFORMATION This test was developed and its performance characteristics determined by [facility] in a manner consistent with CLIA requirements. This test has not been cleared or approved by the U.S. Food and Drug Administration. Blood BLOOD SPECIMEN / Unknown Lab Venipuncture / Unknown 11/24/2017 3:41 PM CDT 11/24/2017 4:08 PM CDT [facility] ([facility]) - 12/05/2017 5:12 PM CDT Performed at: ??01 - [facility] [address] ??[id number] Brim Presser: Saad Bah , Phone: ??[phone] Darling Mckeon MD LAB - CHEMISTRY ALFREDO YOUNGER [facility] ([facility]) [address] [place] [address], [facility] * HEMOGLOBIN A1C (11/24/2017 3:41 PM CDT) [facility] Hemoglobin A1c 5.4 4.4 - 6.3 % 11/25/2017 9:25 AM CDT [facility] Estimated Average Glucose 108 mg/dL 11/25/2017 9:25 AM CDT [facility] Comment: HbA1c Interpretation: Treatment target values recommended by ADA and other clinical organizations should be used to evaluate metabolic control in patients. Treatment Target Values: Normal : < 5.7% Pre-diabetes: 5.7-6.4% Diabetes: Equal to or greater than 6.5% Reference: [place] [employer] Standards of Care in Diabetes -2014 In patients 70 years and older consider HbA1c target range of 7.0-7.5% Reference: ??Diabetes Mellitus in Older People: Position Statement on behalf of the International Association of Gerontology and Geriatrics (IAGG), the Diabetes Working Democrat for Older People (EDWPOP), and the International Task Force of Experts in Diabetes. ??Mayo Quinn et al. J [place] [employer]. 2012 Test results diagnostic of diabetes should be repeated for confirmation. The Tosoh G8 assay for the measurement of HbA1c is a National Glycohemoglobin Standardization Program (NGSP)certified method. Results for patients with HbE disease should be interpreted with caution as this hemoglobinopathy has been shown to interfere with the Tosoh G8 assay. Whole Blood BLOOD SPECIMEN / Unknown Lab Venipuncture / Unknown 11/24/2017 3:41 PM CDT 11/24/2017 4:07 PM CDT Darling Mckeon MD LAB - CHEMISTRY ALFREDO [facility] [address] [phone] * GLUTAMIC ACID DECARBOXYLASE (JONA) ANTIBODY (11/24/2017 3:41 PM CDT) JONA-65 Antibody <5.0 0.0 - 5.0 U/mL 11/26/2017 4:22 PM CDT [facility] ([facility]) Blood BLOOD SPECIMEN / Unknown Lab Venipuncture / Unknown 11/24/2017 3:41 PM CDT 11/24/2017 4:07 PM CDT Narrative [facility] ([facility]) - 11/26/2017 4:22 PM CDT Performed at: ??01 - [facility] [address] ??[id number] Brim Presser: Saad Duffy MD, Phone: ??[phone] Darling Mckeon MD LAB - SEROLOGY ORDER ROSA [facility] ([facility]) [address] [place] [address] * MUSCLE BIOPSY (07/17/2017 3:26 PM CDT) Narrative Darling Mckeon MD - 07/17/2017 3:26 PM CDT Darling Mckeon MD ? 07/17/2017 ??3:26 PM Muscle Biopsy Procedure Note Date: 07/17/2017 Procedure: muscle biopsy- left QC. Indications:muscle weakness- myopathy. Anesthesia: 1% Lidocaine with Epinephrine The procedure was explained to the patient including risks of bleeding and infection and benefits. Written consent was obtained. The area was cleaned and prepped in the usual manner. ??After giving local anesthesia, the subcutaneous and deep tissue were incised. ??Normal looking muscle measuring 3/4 cm. By 1/2 cm was taken out. Deep and subcutaneous tissue was closed with 4-0 chromic. ??The skin was closed with 4-0 silk. ??There were no complications. ??The patient tolerated the procedure well. Complications: None Darling Mckeon M.D Neuromuscular Attending Darling Mckeon MD NEUROLOGY ORDERABLES * PATHOLOGY TISSUE (07/17/2017 3:06 PM CDT) Case Report Surgical Pathology Report ? Case: [id number] ? Authorizing Provider: ??Darling Mckeon MD ? Collected: ? 07/17/2017 03:06 PM ? Ordering Location: ? [facility] ?Received: ?07/17/2017 03:57 PM ? Pathologist: ? Sharon Fritz MD ? Specimen: ?Muscle Biopsy, left thigh muscle ? 07/29/2017 12:53 PM [facility] Final Diagnosis SKELETAL MUSCLE , LEFT THIGH, BIOPSY: . 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 Type II fiber atrophy is a nonspecific change that occurs in the number settings including disuse, polymyalgia, myasthenia, vasculitis, in patients receiving steroids, with uremia, upper motor neuron deficits, remote neoplasms, osteomalacia, alcoholism, rheumatoid arthritis, hypothyroidism and in some drug-induced myopathies. There is no significant chronic inflammation within the biopsy. The absence of chronic inflammation does not preclude a clinical diagnosis of inflammatory myopathy, since in these conditions, inflammation may be quite sparse and focal particularly if the patient has been treated with steroids, There is no histologic evidence of inclusion body myositis. 07/29/2017 12:53 PM [facility] Clinical History 66-year-old woman for muscle biopsy because of myalgias. 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 The patient is on multiple medications including prednisone. She has a previous history of chronic fatigue, fibromyalgia, osteoarthritis, positive double stranded DNA and RF, Raynaud syndrome, hepatitis C. CRP is less than 0.1 and ESR is 4. 07/29/2017 12:53 PM [facility] Gross Description Submitted fresh, at room temperature, wrapped in gauze, without orientation are two portions of red-brown skeletal muscle, designated Ieft thigh , measuring 1.2 x 1.1 x 0.4 and 1.3 x 1.2 x 0.4 cm. The specimens are submitted in toto. The specimen is frozen in liquid nitrogen cooled isopentane. 07/29/2017 12:53 PM [facility] Microscopic Description 1 H&E, 1 trichrome, 1 PAS, 1 diastase, 1 oil red O, 1 myosin ATPase pH 4.3, 1 myosin ATPase pH 4.6, 1 myosin ATPase pH 9.4, 1 NADH, 1 MHC 1 All special stains are performed on frozen sections of the muscle biopsy. Frozen section of the muscle biopsy stained with hematoxylin and eosin shows an adequate, well-oriented biopsy of skeletal muscle with minimal freeze artifact. There is no increase in endomysial or perimysial connective tissue or inflammatory infiltrate. Muscle fiber size is variable with scattered atrophic fibers is seen throughout the biopsy. There are very rare degenerating fibers. Occasional nuclear aggregates are seen. Frozen section of the muscle biopsy, stained with the trichrome stain shows a single ragged red fiber. The PAS stain with and without diastase digestion, performed on frozen section of the muscle biopsy shows normal glycogen content within the muscle fibers. Oil red O stain, performed on frozen section of the muscle biopsy shows slightly increased lipid content in a few fibers but overall there is no striking increase in muscle fiber lipid. Histochemistry to demonstrate myosin ATPase is performed to 3 pH's, on frozen sections of the muscle biopsy. Myosin ATPase reaction at pH 4.3 performed on frozen section of the muscle biopsy shows a normal mosaic architecture. Myosin ATPase reaction at pH 4.6 performed on frozen section of the muscle biopsy shows the smallest fibers are type IIB with only a few of the smaller type I fibers. Myosin ATPase reaction performed on frozen section of the muscle biopsy at pH 9.4 shows selective atrophy of type II fibers. NADH reaction, performed on frozen section of the muscle biopsy shows normal myofibrillar architecture. The MHC1 IHC stain to identify the presence of MHC 1 within muscle cell membranes shows only rare fibers that have a trace membrane label. Several special stains are pending and will be the subject of an addendum report. 07/29/2017 12:53 PM [facility] Addendum 1 Frozen sections of the muscle biopsy were stained with immunoperoxidase stains to demonstrate CD20 positive B lymphocytes, and CD4 and CD8 positive T lymphocytes. There were only very rare CD8 positive T lymphocytes seen in the endomysium. In patients with inflammatory myopathy inflammation may be sparse and focal, particularly if the patient has been treated with steroids. Clinical correlation is recommended. The Congo red stain performed on frozen sections of the biopsy show no Congophilic material in the endomysium or nuclei. Additional clinical information may be helpful in further evaluation or interpretation of the findings in this biopsy. 07/29/2017 12:53 PM [facility] Addendum electronically signed by Sharon Fritz MD on 07/29/2017 at 12:52 PM Disclaimer The performance characteristics of all immunohistochemical and indirect immunofluorescence stains (if any) cited in this report were determined by the [facility] of [facility]. Some of these tests were developed by our own laboratory and have not been cleared or approved by the US Food and Drug Administration. The FDA does not require this test to go through premarket FDA review. These tests are used for clinical purposes. They should not be regarded as investigational or for research. This laboratory is certified under the Clinical Laboratory Improvement Amendments (CLIA) as qualified to perform high complexity clinical laboratory testing. This case has been personally reviewed and interpreted by the attending (teaching) pathologist. 07/29/2017 12:53 PM T [facility] Embedded Images 07/29/2017 12:53 PM T [facility] Pathology/Cytology MUSCLE BIOPSY SPECIMEN / Unknown Collection / Unknown 07/17/2017 3:06 PM CDT 07/17/2017 3:57 PM CDT Comment:H&E, Villanueva, ATPase, NA DP, ROSALIA, MItochondria. Looking for vacuoles and mitochondrial changes and amyloid-suspecting [employer]. Darling Mckeon MD LAB - PATHOLOGY/CYTO LOGY ORDERABLES Performing Organization Address City/State/[facility] Co de Phone Number [facility] [address] [phone] * URINALYSIS - POINT OF CARE (AMB) [facility] (04/26/2016) Glucose UA neg [facility] Bilirubin UA POCT neg [facility] Ketones UA POCT neg [facility] Specific [place] UA 1.000 [facility] Blood Urine POCT neg [facility] pH UA 9.0 [facility] Protein UA neg [facility] Urobilinogen UA neg [facility] Nitrite UA neg [facility] WBC UA neg [facility] Urine specimen (specimen) 04/26/2016 Yonathan Ladd MD LAB - POINT OF CARE ORDERABLES [facility] * HEPATITIS C AB W/RFLX TO HCV RNA QN PCR (09/08/2015 2:07 PM CDT) Hepatitis C Virus RNA PCR Quantitative <15 NOT DETECTED <15 IU/mL [facility] ([facility]) Hepatitis C Virus RNA Log IU/mL <1.18 NOT DETECTED <1.18 Log IU/mL [facility] ([facility]) Comment: Please note: There are several scenarios [...] to the current Treatment Guidelines (J Hepatol, 0304-1322, ). Please correlate these findings with the patient's clinical history and any other diagnostic findings, including any evidence of liver dysfunction. See Note [facility] ([facility]) Comment: The analytical performance characteristics of this assay have been determined by [employer]. The modifications have not been cleared or approved by the FDA. This assay has been validated pursuant to the CLIA regulations and is used for clinical purposes. ?? This test was performed using the ROMA(R)AmpliPrep/ ROMA(R)TaqMan(R)HCV Test,v2.0. For more information on this test, go to: http://education.Dizkon.[employer]/faq/RUC93f9 (This link is being provided for informational/ educational purposes only.) Test Performed at: [facility] [address] [place] ??[phone] SAAD HAMILTON DO,MPH 09/08/2015 2:07 PM CDT 09/08/2015 2:11 PM CDT Aniceto Barker MD LAB - CHEMISTRY ALFREDO YOUNGER [facility] ([facility]) * ANCA SCREEN W/ REFLX MPO+PR3+TITER (09/08/2015 2:07 PM CDT) ANCA Screen Negative Negative [facility] ([facility]) Comment: ANCA Screen includes evaluation for p-ANCA, c-ANCA, and atypical p-ANCA. Myeloperoxidase Antibody <1.0 <1.0 [facility] ([facility]) Comment: Value Interpretation ?<1.0 AI: No Antibody Detected ? >or=1.0 AI: Antibody Detected ? Autoantibodies to myeloperoxidase (MPO) are commonly associated with the following small-vessel vasculitides: microscopic polyangiitis, polyarteritisnodosa, Churg-Gonsalo syndrome, necrotizing and crescentic glomerulonephritis and occasionally Wegeners granulomatosis. The perinuclear IFA pattern, (p-ANCA) is based largely on autoantibody to myeloperoxidase which serves as the primary antigen. These autoantibodies are present in active disease state. ANCA Proteinase 3 <1.0 <1.0 AI [facility] ([facility]) Comment: Value Interpretation ?<1.0 AI: No Antibody Detected ? >or=1.0 AI: Antibody Detected ? Autoantibodies to proteinase-3 (MT-3) are accepted as characteristic for granulomatosis with polyangiitis (Prince's), and are detectable in 95% of the histologically proven cases. The cytoplasmic IFA pattern, (c-ANCA), is based largely on autoantibody to MT-3 which serves as the primary antigen. These autoantibodies are present in active disease state. Test Performed at: [facility]/[address] ??[phone] CADEN PEGUERO MD,PHD 09/08/2015 2:07 PM CDT 09/08/2015 2:11 PM CDT Aniceto Barker MD LAB - CHEMISTRY ALFREDO YOUNGER Performing Organization Address [facility]/ZIP Co de Phone Number [facility] ([facility]) * (ABNORMAL) VITAMIN D 25-HYDROXY D2+D3 BY TANDEM MASS (09/08/2015 2:07 PM CDT) Only the most recent of3 resultswithin the time period is included. Pathologist [facility] Vitamin D, 25 Hydroxy Total 27(L) 30 - 100 ng/mL [facility] ([facility]) Comment: Vitamin D Status ? 25-OH Vitamin D: Deficiency: ?<20 ng/mL Insufficiency: ? 20 - 29 ng/mL Optimal: ? > or = 30 ng/mL For 25-OH Vitamin D testing on patients on D2-supplementation and patients for whom quantitation of D2 and D3 fractions is required, the QuestAssureD(TM) 25-OH VIT D, (D2,D3), LC/MS/MS is recommended: order code [id number] (patients >2yrs). For more information on this test, go to: http://education.Protection Plus/faq/JQK983 (This link is being provided for informational/educational purposes only.) Test Performed at: [facility] [address] [place], [place] ??[phone] SAAD HAMILTON DO,MPH Blood specimen (specimen) BLOOD SPECIMEN / Unknown 09/08/2015 2:07 PM CDT 09/08/2015 2:11 PM CDT Aniceto Barker MD LAB - CHEMISTRY ALFREDO YOUNGER Performing Organization Address [facility]/State/ZIP Co de Phone Number [facility] ([facility]) * (ABNORMAL) NIXON COMPREHENSIVE PLUS PROFILE (09/08/2015 2:07 PM CDT) [facility] NIXON Screen NEGATIVE NEGATIVE [facility] ([facility]) Comment: A negative ANAchoice(TM) indicates the absence of detectable antibodies to component analytes consisting of dsDNA, Chromatin, INFECTION CONTROL SPECIALIST, Sm/INFECTION CONTROL SPECIALIST, Sm, SSA, SSB, Violetta-1, Centromere B, Scl-70 and Ribosomal P. A negative ANAchoice(TM) should be interpreted in the context of the clinical and laboratory findings, and does not rule out autoimmune disease characterized by other autoantibody specificities including autoimmune hepatitis and primary biliary cirrhosis. NIXON Pattern #1 TNP [facility] ([facility]) Comment: TNP-Reflex testing not required. Reference Ranges for Anti-Nuclear Ab Titer: ?? <1:40 ?Negative ?? 1:40-1:80 ??Low Antibody Level ?? >1:80 ?Elevated Antibody Level A positive NIXON result may be seen in a variety of diseases and healthy individuals. Its interpretation depends on clinical findings and other laboratory data. Rheumatoid Factor 25(H) <14 IU/mL [facility] ([facility]) dsDNA Antibody Crithidia IFA NEGATIVE NEGATIVE [facility] ([facility]) dsDNA Antibody Crithidia Titer TNP-Reflex testing not required. [facility] ([facility]) Comment: EDGAR Meza (SM) Antibody <1.0 NEG <1.0 NEGATIVE AI [facility] ([facility]) SM/INFECTION CONTROL SPECIALIST Antibody <1.0 NEG <1.0 NEGATIVE AI [facility] ([facility]) Sjogren's Antibodies (SSA) <1.0 NEG <1.0 NEGATIVE AI [facility] ([facility]) Sjogren's Antibodies (SSB) <1.0 NEG <1.0 NEGATIVE AI [facility] ([facility]) EDGAR SCL-70 Antibody <1.0 NEG <1.0 NEGATIVE AI [facility] ([facility]) Comment: Test Performed at: [facility] [address] [place], [place] ??[phone] JASWANT BARNES MD PHD 09/08/2015 2:07 PM CDT 09/08/2015 2:11 PM CDT Aniceto Barker MD LAB - CHEMISTRY ALFREDO YOUNGER [facility] ([facility]) * CHROMATIN ANTIBODY (09/08/2015 2:07 PM CDT) Only the most recent of2 resultswithin the time period is included. Chromatin Nucleosomal <1.0 NEG <1.0 NEG AI [facility] ([facility]) Comment: Test Performed at: [facility] [address] [place], [place] ??[address] SAAD HAMILTON DO,MPH Blood specimen (specimen) BLOOD SPECIMEN / Unknown 09/08/2015 2:07 PM CDT 09/08/2015 2:11 PM CDT Aniceto Barker MD LAB - SEROLOGY ORDER ROSA [facility] ([facility]) * CARDIOLIPIN ANTIBODY IGA/IGG/IGM PANEL (09/08/2015 2:07 PM CDT) Cardiolipin Antibody IgA <11 APL [facility] ([facility]) Comment: < OR = 11 Negative ?12-20 ??Indeterminate ?21-80 ??Low to Medium Positive ?>80 ??High Positive For more information on this test, go to: http://Juice [employer].Prote[employer] Plus/faq/LZB461 Cardiolipin Antibody IgG <14 GPL [facility] ([facility]) Comment: < OR = 14 Negative ?15-20 ??Indeterminate ?21-80 ??Low to Medium Positive ?>80 ??High Positive Greater than or equal to 40 GPL is a risk factor for thrombosis and loss. For more information on this test, go to: http://[employer].Prote[employer] Plus/faq/EKE827 Cardiolipin Antibody IgM <12 MPL [facility]) Comment: Clinical Significance: The Antiphospholipid Antibody Syndrome (APS) is a clinical pathologic correlation that includes a clinical event (e.g. thrombosis, loss, thrombocytopenia) and persistent positive Antiphospholipid Antibodies (IgM or IgG MARIA DEL ROSARIO >40 MPL/GPL, IgM or IgG anti-B2GP1 antibodies, or a Lupus Anticoagulant). The IgA isotype has been implicated in smaller studies, but have not yet been incorporated into the APS criteria. International consensus guidelines suggest waiting at least 12 weeks before retesting to confirm antibody persistence. Reference J Thromb Haemost 2006: 4; 295. < OR = 12 ??Negative ?13-20 ??Indeterminate ?21-80 ??Low to Medium Positive ?>80 ??High Positive Greater than or equal to 40 MPL is a risk factor for thrombosis and loss. For more information on this test, go to: http://education.Protection Plus/faq/TXG620 Test Performed at: [facility] [address] [place], [place] ??[phone] JASWANT BARNES MD PHD Venous blood specimen (specimen) 09/08/2015 2:07 PM CDT 09/08/2015 2:11 PM CDT Aniceto Barker MD LAB - SEROLOGY ORDER ROSA [facility]) * TSH HI LOW REFLEX FREE T4 (09/08/2015 2:07 PM CDT) TSH 0.42 0.40 - 4.50 mIU/L [facility]) Comment: Test Performed at: [facility] [address] [place], [place] ??[phone] SAAD HAMILTON DO,MPH 09/08/2015 2:07 PM CDT 09/08/2015 2:11 PM CDT Aniceto Barker MD LAB - CHEMISTRY ORDE RABLES Performing Organization Address [facility]/ZIP Co de Phone Number [facility] * URIC ACID BLOOD (09/08/2015 2:07 PM CDT) Uric acid 3.3 2.5 - 7.0 mg/dL [facility] ([facility]) Comment: Therapeutic target for gout patients: <6.0 mg/dL ?? Test Performed at: [facility] [address] [place], [place] ??[phone] SAAD HAMILTON DO,MPH Blood specimen (specimen) BLOOD SPECIMEN / Unknown 09/08/2015 2:07 PM CDT 09/08/2015 2:11 PM CDT Aniceto Barker MD LAB - CHEMISTRY ORDE AREN Performing Organization Address [facility]/ZIP Co de Phone Number [facility] * LUPUS ANTICOAGULANT PANEL W RFLX (09/08/2015 2:07 PM CDT) Pathologist [facility] Hexagonal Phase Confirmation Negative Negative [facility]) Comment: Test Performed at: [facility] ?? CADEN PEGUERO MD,PHD Plasma specimen (specimen) 09/08/2015 2:07 PM CDT 09/08/2015 2:11 PM CDT Aniceto Barker MD LAB - HEMATOLOGY ORD ERABLES Performing Organization Address [facility] Co de Phone Number [facility]) * BETA-2 GLYCOPROTEIN 1 ANTIBODY IGG/IGM/IGA PANEL (09/08/2015 2:07 PM CDT) Pathologist [facility] Beta-2 Glycoprotein 1 Antibody 1 IgG <9 <=20 [facility]) Beta-2 Glycoprotein 1 Antibody IgM <9 <=20 [facility] Beta-2 Glycoprotein 1 Antibody IgA <9 <=20 ANA[facility] Comment: The Antiphospholipid Antibody Syndrome (APS) is a clinical-pathologic correlation that includes a clinical event (e.g. thrombosis, loss, thrombocytopenia) and persistent positive Antiphospholipid Antibodies (IgM or IgG MARIA DEL ROSARIO >40 MPL/GPL, IgM or IgG anti-B2GPI antibodies, or a Lupus Anticoagulant). The IgA isotype has been implicated in smaller studies, but have not yet been incorporated into the APS criteria. International consensus guidelines suggest waiting at least 12 weeks before retesting to confirm antibody persistence. Reference J Thromb Haemost 2006: 4; 295 For more information on this test, go to http://education.Protection Plus/faq/XTW169 Test Performed at: [facility] [address] [place] [address] ?? CADEN PEGUERO MD,PHD Serum 09/08/2015 2:07 PM CDT 09/08/2015 2:11 PM CDT Aniceto Barker MD LAB - SEROLOGY ORDER ROSA Performing Organization Address [facility] de Phone Number [facility]) * MEZA (SM) ANTIBODY EDGAR (09/08/2015 2:07 PM CDT) Only the most recent of2 resultswithin the time period is included. EDGAR Meza (SM) Antibody <1.0 NEG <1.0 NEG AI [facility]) Comment: Test Performed at: [facility] [address] [place], [place] ??[phone] SAAD HAMILTON DO,MPH Blood specimen (specimen) BLOOD SPECIMEN / Unknown 09/08/2015 2:07 PM CDT 09/08/2015 2:11 PM CDT Aniceto Barker MD LAB - CHEMISTRY ALFREDO YOUNGER Performing Organization Address [facility] Phone Number [facility]) * C-REACTIVE PROTEIN (09/08/2015 2:07 PM CDT) Only the most recent of2 resultswithin the time period is included. Pathologist [facility] C-Reactive Protein <0.10 <0.80 mg/dL [facility]) Comment: Please be advised that patients taking Carboxypenicillins may exhibit falsely decreased C-Reactive Protein levels due to an analytical interference in this assay. Test Performed at: [facility] [address] [place], [place] ??[phone] SAAD HAMILTON DO,MPH Blood specimen (specimen) BLOOD SPECIMEN / Unknown 09/08/2015 2:07 PM CDT 09/08/2015 2:11 PM CDT Aniceto Barker MD LAB - CHEMISTRY ALFREDO YOUNGER Performing Organization Address [facility] de Phone Number [facility] * RIBOSOMAL P PROTEIN ANTIBODY (09/08/2015 2:07 PM CDT) Ribosomal P Antibody <1.0 NEG <1.0 NEG AI [facility]) Comment: Test Performed at: [facility] [address] [place], [place] ??[address] SAAD HAMILTON DO,MPH 09/08/2015 2:07 PM CDT 09/08/2015 2:11 PM CDT Aniceto Barker MD LAB - CHEMISTRY ALFREDO YOUNGER Performing Organization Address City/[facility]/ZIP Co de Phone Number [facility]) * HISTONE ANTIBODY (09/08/2015 2:07 PM CDT) Only the most recent of2 resultswithin the time period is included. Histone Antibody <1.0 U [facility]) Comment: Reference Ranges for Histone Antibodies: ?? <1.0 ? Negative ?? 1.0-1.5 ??Weak Positive ?? 1.6-2.5 ??Moderate Positive ?? >2.5 ? Strong Positive Test Performed at: [facility] [address] [place], [place] ??[phone] JASWANT BARNES MD PHD 09/08/2015 2:07 PM CDT 09/08/2015 2:11 PM CDT Aniceto Barker MD LAB - CHEMISTRY ALFREDO YOUNGER Performing Organization Address [facility]/ZIP Co de Phone Number [facility] * COMPLEMENT TOTAL (09/08/2015 2:07 PM CDT) Complement Total CH50 58 31 - 60 U/mL [facility]) Comment: Test Performed at: [facility] [address] [place], [place] ??[phone] SAAD HAMILTON DO,MPH Blood specimen (specimen) BLOOD SPECIMEN / Unknown 09/08/2015 2:07 PM CDT 09/08/2015 2:11 PM CDT Aniceto Barker MD LAB - CHEMISTRY ALFREDO YOUNGER [facility] * DNA ANTIBODY DOUBLE STRANDED (09/08/2015 2:07 PM CDT) Only the most recent of3 resultswithin the time period is included. Pathologist [facility] dsDNA Antibody <1 IU/mL [facility] ([facility]) Comment: ? IU/mL ? Interpretation ? < or = 4 ?Negative ? 5-9 ? Indeterminate ? > or = 10 ?? Positive Test Performed at: [facility] ??[phone] SAAD HAMILTON DO,MPH Blood specimen (specimen) BLOOD SPECIMEN / Unknown 09/08/2015 2:07 PM CDT 09/08/2015 2:11 PM CDT Aniceto Barker MD LAB - HEMATOLOGY ORD WAN[place]OFIA Performing Organization Address [facility] Phone Number [facility] ([facility]) * ALDOLASE (09/08/2015 2:07 PM CDT) Only the most recent of2 resultswithin the time period is included. Pathologist [facility] Aldolase 2.6 < OR = 8.1 U/L [facility] ([facility]) Comment: REPORT COMMENT: FASTING:YES Test Performed at: [facility] [id number] [place] [address] ??[phone] SAAD HAMILTON DO,MPH Blood specimen (specimen) BLOOD SPECIMEN / Unknown 09/08/2015 2:07 PM CDT 09/08/2015 2:11 PM CDT Aniceto Barker MD LAB - CHEMISTRY ALFREDO YOUNGER Performing Organization Address [facility] Phone Number [facility] ([facility]) * CYCLIC CITRUL PEPTIDE AB IGG (CCP) (09/08/2015 2:07 PM CDT) Pathologist [facility] Cyclic Citrullinated Peptide Antibody <16 UNITS [facility] ([facility]) Comment: Reference Range Negative: ?<20 Weak Positive: ? 20-39 Moderate Positive: ?? 40-59 Strong Positive: ? >59 Test Performed at: [facility] ??[phone] SAAD HAMILTON DO,MPH Blood specimen (specimen) BLOOD SPECIMEN / Unknown 09/08/2015 2:07 PM CDT 09/08/2015 2:11 PM CDT Aniceto Barker MD LAB - CHEMISTRY ALFREDO YOUNGER Performing Organization Address [facility]/ZIP Co de Phone Number [facility] * ERYTHROCYTE SEDIMENTATION RATE (09/08/2015 2:07 PM CDT) Only the most recent of2 resultswithin the time period is included. Pathologist [facility] Erythrocyte Sedimentation Rate Westergren 4 < OR = 30 mm/h [facility]) Comment: Test Performed at: [facility] [address] ??[phone] SAAD HAMILTON DO,MPH Blood specimen (specimen) BLOOD SPECIMEN / Unknown 09/08/2015 2:07 PM CDT 09/08/2015 2:11 PM CDT Aniceto Barker MD LAB - HEMATOLOGY ORD CHRISTIANE Performing Organization Address [facility]/State/ZIP Co de Phone Number [facility]) * CBC W AUTO DIFFERENTIAL (09/08/2015 2:07 PM CDT) Only the most recent of2 resultswithin the time period is included. [facility] WBC 6.5 3.8 - 10.8 Thousand/u L [facility]) RBC 4.58 3.80 - 5.10 Million/uL [facility]) Hemoglobin 14.8 11.7 - 15.5 g/dL [facility]) Hematocrit 44.5 35.0 - 45.0 % [facility] MCV 97.1 80.0 - 100.0 fL [facility]) MCH 32.2 27.0 - 33.0 pg [facility]) MCHC 33.2 32.0 - 36.0 g/dL [facility]) RDW-CV 13.2 11.0 - 15.0 % [facility]) Platelet 156 140 - 400 Thousand/u L [facility]) MPV 10.8 7.5 - 11.5 fL [facility]) Neutrophils Absolute 4,336 1,500 - 7,800 cells/uL [facility] ([facility]) Lymphocyte Absolute Manual 1,820 850 - 3,900 cells/uL [facility]) Monocytes Absolute 293 200 - 950 cells/uL [facility]) Eosinophils Absolute 26 15 - 500 cells/uL [facility] Basophil Absolute Manual 26 0 - 200 cells/uL [facility]) Neutrophils % 66.7 % [facility]) Lymphocytes % 28.0 % [facility] Monocytes % 4.5 % [facility] Eosinophils % 0.4 % [facility] Basophil % 0.4 % [facility]) Comment: Test Performed at: [employer] [place], [place] ??[address] SAAD HAMILTON DO,MPH Blood specimen (specimen) BLOOD SPECIMEN / Unknown 09/08/2015 2:07 PM CDT 09/08/2015 2:11 PM CDT Aniceto Barker MD LAB - HEMATOLOGY [facility] Organization Address City/State/ZIP Co de Phone Number [facility]) * COMPLEMENT C4 (09/08/2015 2:07 PM CDT) Complement C4 24 16 - 47 mg/dL [facility] ([facility]) Comment: Test Performed at: [facility] [address] [place], [place] ??[address] SAAD HAMILTON DO,MPH Blood specimen (specimen) BLOOD SPECIMEN / Unknown 09/08/2015 2:07 PM CDT 09/08/2015 2:11 PM CDT Aniceto Barker MD LAB - SEROLOGY ORDER ROSA [facility]) * (ABNORMAL) COMPREHENSIVE METABOLIC PANEL (09/08/2015 2:07 PM CDT) Only the most recent of2 resultswithin the time period is included. Glucose 108(H) 65 - 99 mg/dL [facility]) Comment: ? Fasting reference interval BUN 14 7 - 25 mg/dL [facility]) Creatinine 0.81 0.50 - 0.99 mg/dL [facility] ([facility]) Comment: For patients >49 years of age, the reference limit for Creatinine is approximately 13% higher for people identified as -Salvadorean. eGFR non- 78 > OR = 60 mL/min/1 .73m2 [facility]) eGFR 90 > OR = 60 mL/min/1 .73m2 [facility]) BUN/Creatinine Ratio NOT APPLICABLE 6 - 22 (calc) [facility]) Sodium 139 135 - 146 mmol/L [facility]) Potassium 3.9 3.5 - 5.3 mmol/L [facility]) Chloride 107 98 - 110 mmol/L [facility]) CO2 22 19 - 30 mmol/L [facility]) Calcium 9.6 8.6 - 10.4 mg/dL [facility]) Protein Total 7.1 6.1 - 8.1 g/dL [facility]) Albumin 4.2 3.6 - 5.1 g/dL [facility]) Globulin 2.9 1.9 - 3.7 g/dL (calc) [facility]) Albumin/Globulin Ratio 1.4 1.0 - 2.5 (calc) [facility]) Bilirubin Total 0.7 0.2 - 1.2 mg/dL [facility] ([facility]) Alkaline Phosphatase 60 33 - 130 U/L [facility] ([facility]) AST 20 10 - 35 U/L [facility] ([facility]) ALT 12 6 - 29 U/L [facility]) Comment: Test Performed at: [facility] [address] [place] [place] ??[phone] SAAD HAMILTON DO,MPH Blood specimen (specimen) BLOOD SPECIMEN / Unknown 09/08/2015 2:07 PM CDT 09/08/2015 2:11 PM CDT Aniceto Barker MD LAB - CHEMISTRY ALFREDO YOUNGER Performing Organization Address [facility] de Phone Number [facility]) * LDH BLOOD (09/08/2015 2:07 PM CDT) Pathologist [facility] LDH Total 147 120 - 250 U/L [facility]) Comment: Test Performed at: [employer] [place], [place] ??[address] SAAD HAMILTON DO,MPH Blood specimen (specimen) BLOOD SPECIMEN / Unknown 09/08/2015 2:07 PM CDT 09/08/2015 2:11 PM CDT Aniceto Barker MD LAB - CHEMISTRY ALFREDO YOUNGER Performing Organization Address [facility] de Phone Number [facility]) * HEPATITIS B SURFACE ANTIGEN W RFLX CONFIRMATION (09/08/2015 2:07 PM CDT) [facility] Hepatitis B Virus Surface Antigen NON-REACTI VE NON-REACT JULIET [facility]) Comment: Test Performed at: [facility] [place], [place] ??[phone] SAAD HAMILTON DO,MPH Blood specimen (specimen) BLOOD SPECIMEN / Unknown 09/08/2015 2:07 PM CDT 09/08/2015 2:11 PM CDT Aniceto Barker MD LAB - CHEMISTRY ALFREDO YOUNGER Performing Organization Address [facility] de Phone Number [facility] * CK BLOOD (09/08/2015 2:07 PM CDT) Only the most recent of2 resultswithin the time period is included. Pathologist [facility] CK Total 71 29 - 143 U/L [facility]) Comment: Test Performed at: [employer] [place], [place] ??[phone] SAAD HAMILTON DO,MPH Blood specimen (specimen) BLOOD SPECIMEN / Unknown 09/08/2015 2:07 PM CDT 09/08/2015 2:11 PM CDT Aniceto Barker MD LAB - CHEMISTRY ALFREDO YOUNGER Performing Organization Address City/[facility]/ZIP Co de Phone Number [facility]) * COMPLEMENT C3 (09/08/2015 2:07 PM CDT) Complement C3 108 90 - 180 mg/dL [facility]) Comment: Test Performed at: [facility] ??[phone] SAAD HAMILTON DO,MPH Blood specimen (specimen) BLOOD SPECIMEN / Unknown 09/08/2015 2:07 PM CDT 09/08/2015 2:11 PM CDT Aniceto Barker MD LAB - CHEMISTRY ALFREDO YOUNGER Performing Organization Address [facility] de Phone Number [facility] * XR FOOT RIGHT 3VW OR MORE (08/21/2015 3:51 PM CDT) Anatomical Region Laterality Modality Ankle / Foot Other Impressions 08/21/2015 5:55 PM CDT IMPRESSION: 1. No significant arthritis in the right or left hands. 2. The left hand fifth proximal interphalangeal joint is held in flexion on all the images. This could be due to positioning or due to a flexion contracture. Please correlate with physical examination. 3. Moderate plantar calcaneal spur in the right foot. Otherwise no significant arthritis in the right or left feet. 4. Normal sacroiliac joints. 5. Mild diffuse osteopenia. This report was electronically signed by HAM BENZ MD ??on 08/21/2015 5:55 PM . Narrative 08/21/2015 5:55 PM CDT Exam: XR HAND RIGHT 3+ VW, XR SACROILIAC JOINTS < 3 VW, XR FOOT LEFT 3+ VW, XR FOOT RIGHT 3+ VW, XR HAND LEFT 3+ VW History: ??Please evaluate for Joint pains, Back pain Comparison: None available. Findings: Right hand: There is no fracture or dislocation. The joint spaces are normal. Small lucencies at the fourth distal interphalangeal joint are compatible with subchondral cysts. No definite erosions are present. Bone mineralization is slightly decreased. The soft tissues are normal. Left hand: There is no fracture or dislocation. The joint spaces are normal. No erosions are present. Bone mineralization is slightly decreased. The soft tissues are normal. ??A fourth proximal interphalangeal joint is held in flexion on all of the images, which may represent a flexion contracture. Right foot: There is no fracture or dislocation. The joint spaces are normal. No erosions are present. Bone mineralization is mildly decreased. The soft tissues are normal. ??A moderate plantar calcaneal spur is noted. Left foot: There is no fracture or dislocation. The joint spaces are normal. No erosions are present. Bone mineralization is mildly decreased. The soft tissues are normal. Sacroiliac joints: The sacroiliac joints are intact and symmetric, without erosion, widening, sclerosis, narrowing, or ankylosis. No displaced pelvic fracture is present. The pubic symphysis is normal. The hip joint spaces are normal. Several soft tissue calcifications project adjacent to the right and left sides of the pelvis. There is mild diffuse osteopenia. Endplate sclerosis is noted at L5-S1. Procedure Note Ham Benz MD - 07/05/2017 Exam: XR HAND RIGHT 3+ VW, XR SACROILIAC JOINTS < 3 VW, XR FOOT LEFT 3+ VW, XR FOOT RIGHT 3+ VW, XR HAND LEFT 3+ VW History: Please evaluate for Joint pains, Back pain Comparison: None available. Findings: Right hand: There is no fracture or dislocation. The joint spaces are normal. Smalllucencies at the fourth distal interphalangeal joint are compatible withsubchondral cysts. No definite erosions are present. Bone mineralizationis slightly decreased. The soft tissues are normal. Left hand: There is no fracture or dislocation. The joint spaces are normal. Noerosions are present. Bone mineralization is slightly decreased. The softtissues are normal. A fourth proximal interphalangeal joint is held inflexion on all of the images, which may represent a flexion contracture. Right foot: There is no fracture or dislocation. The joint spaces are normal. Noerosions are present. Bone mineralization is mildly decreased. The softtissues are normal. A moderate plantar calcaneal spur is noted. Left foot: There is no fracture or dislocation. The joint spaces are normal. Noerosions are present. Bone mineralization is mildly decreased. The softtissues are normal. Sacroiliac joints: The sacroiliac joints are intact and symmetric, without erosion, widening,sclerosis, narrowing, or ankylosis. No displaced pelvic fracture ispresent. The pubic symphysis is normal. The hip joint spaces are normal.Several soft tissue calcifications project adjacent to the right and left sides of the pelvis. There is milddiffuse osteopenia. Endplate sclerosis is noted at L5-S1. IMPRESSION IMPRESSION: 1. No significant arthritis in the right or left hands. 2. The left hand fifth proximal interphalangeal joint is held in flexionon all the images. This could be due to positioning or due to a flexioncontracture. Please correlate with physical examination. 3. Moderate plantar calcaneal spur in the right foot. Otherwise nosignificant arthritis in the right or left feet. 4. Normal sacroiliac joints. 5. Mild diffuse osteopenia. This report was electronically signed by HAM BENZ MD on 08/21/20155:55 PM . Aniceto Barker MD DIAGNOSTIC IMAGING O RDERABLES * XR FOOT LEFT 3VW OR MORE (08/21/2015 3:51 PM CDT) Anatomical Region Laterality Modality Ankle / Foot Other Impressions 08/21/2015 5:55 PM CDT IMPRESSION: 1. No significant arthritis in the right or left hands. 2. The left hand fifth proximal interphalangeal joint is held in flexion on all the images. This could be due to positioning or due to a flexion contracture. Please correlate with physical examination. 3. Moderate plantar calcaneal spur in the right foot. Otherwise no significant arthritis in the right or left feet. 4. Normal sacroiliac joints. 5. Mild diffuse osteopenia. This report was electronically signed by HAM BENZ MD ??on 08/21/2015 5:55 PM . Narrative 08/21/2015 5:55 PM CDT Exam: XR HAND RIGHT 3+ VW, XR SACROILIAC JOINTS < 3 VW, XR FOOT LEFT 3+ VW, XR FOOT RIGHT 3+ VW, XR HAND LEFT 3+ VW History: ??Please evaluate for Joint pains, Back pain Comparison: None available. Findings: Right hand: There is no fracture or dislocation. The joint spaces are normal. Small lucencies at the fourth distal interphalangeal joint are compatible with subchondral cysts. No definite erosions are present. Bone mineralization is slightly decreased. The soft tissues are normal. Left hand: There is no fracture or dislocation. The joint spaces are normal. No erosions are present. Bone mineralization is slightly decreased. The soft tissues are normal. ??A fourth proximal interphalangeal joint is held in flexion on all of the images, which may represent a flexion contracture. Right foot: There is no fracture or dislocation. The joint spaces are normal. No erosions are present. Bone mineralization is mildly decreased. The soft tissues are normal. ??A moderate plantar calcaneal spur is noted. Left foot: There is no fracture or dislocation. The joint spaces are normal. No erosions are present. Bone mineralization is mildly decreased. The soft tissues are normal. Sacroiliac joints: The sacroiliac joints are intact and symmetric, without erosion, widening, sclerosis, narrowing, or ankylosis. No displaced pelvic fracture is present. The pubic symphysis is normal. The hip joint spaces are normal. Several soft tissue calcifications project adjacent to the right and left sides of the pelvis. There is mild diffuse osteopenia. Endplate sclerosis is noted at L5-S1. Procedure Note Ham Benz MD - 07/05/2017 Exam: XR HAND RIGHT 3+ VW, XR SACROILIAC JOINTS < 3 VW, XR FOOT LEFT 3+ VW, XR FOOT RIGHT 3+ VW, XR HAND LEFT 3+ VW History: Please evaluate for Joint pains, Back pain Comparison: None available. Findings: Right hand: There is no fracture or dislocation. The joint spaces are normal. Smalllucencies at the fourth distal interphalangeal joint are compatible withsubchondral cysts. No definite erosions are present. Bone mineralizationis slightly decreased. The soft tissues are normal. Left hand: There is no fracture or dislocation. The joint spaces are normal. Noerosions are present. Bone mineralization is slightly decreased. The softtissues are normal. A fourth proximal interphalangeal joint is held inflexion on all of the images, which may represent a flexion contracture. Right foot: There is no fracture or dislocation. The joint spaces are normal. Noerosions are present. Bone mineralization is mildly decreased. The softtissues are normal. A moderate plantar calcaneal spur is noted. Left foot: There is no fracture or dislocation. The joint spaces are normal. Noerosions are present. Bone mineralization is mildly decreased. The softtissues are normal. Sacroiliac joints: The sacroiliac joints are intact and symmetric, without erosion, widening,sclerosis, narrowing, or ankylosis. No displaced pelvic fracture ispresent. The pubic symphysis is normal. The hip joint spaces are normal.Several soft tissue calcifications project adjacent to the right and left sides of the pelvis. There is milddiffuse osteopenia. Endplate sclerosis is noted at L5-S1. IMPRESSION IMPRESSION: 1. No significant arthritis in the right or left hands. 2. The left hand fifth proximal interphalangeal joint is held in flexionon all the images. This could be due to positioning or due to a flexioncontracture. Please correlate with physical examination. 3. Moderate plantar calcaneal spur in the right foot. Otherwise nosignificant arthritis in the right or left feet. 4. Normal sacroiliac joints. 5. Mild diffuse osteopenia. This report was electronically signed by HAM BENZ MD on 08/21/20155:55 PM . Aniceto Barker MD DIAGNOSTIC IMAGING O RDERABLES * XR HAND RIGHT 3VW OR MORE (08/21/2015 3:51 PM CDT) Anatomical Region Laterality Modality Wrist / Hand Other Impressions 08/21/2015 5:55 PM CDT IMPRESSION: 1. No significant arthritis in the right or left hands. 2. The left hand fifth proximal interphalangeal joint is held in flexion on all the images. This could be due to positioning or due to a flexion contracture. Please correlate with physical examination. 3. Moderate plantar calcaneal spur in the right foot. Otherwise no significant arthritis in the right or left feet. 4. Normal sacroiliac joints. 5. Mild diffuse osteopenia. This report was electronically signed by HAM BENZ MD ??on 08/21/2015 5:55 PM . Narrative 08/21/2015 5:55 PM CDT Exam: XR HAND RIGHT 3+ VW, XR SACROILIAC JOINTS < 3 VW, XR FOOT LEFT 3+ VW, XR FOOT RIGHT 3+ VW, XR HAND LEFT 3+ VW History: ??Please evaluate for Joint pains, Back pain Comparison: None available. Findings: Right hand: There is no fracture or dislocation. The joint spaces are normal. Small lucencies at the fourth distal interphalangeal joint are compatible with subchondral cysts. No definite erosions are present. Bone mineralization is slightly decreased. The soft tissues are normal. Left hand: There is no fracture or dislocation. The joint spaces are normal. No erosions are present. Bone mineralization is slightly decreased. The soft tissues are normal. ??A fourth proximal interphalangeal joint is held in flexion on all of the images, which may represent a flexion contracture. Right foot: There is no fracture or dislocation. The joint spaces are normal. No erosions are present. Bone mineralization is mildly decreased. The soft tissues are normal. ??A moderate plantar calcaneal spur is noted. Left foot: There is no fracture or dislocation. The joint spaces are normal. No erosions are present. Bone mineralization is mildly decreased. The soft tissues are normal. Sacroiliac joints: The sacroiliac joints are intact and symmetric, without erosion, widening, sclerosis, narrowing, or ankylosis. No displaced pelvic fracture is present. The pubic symphysis is normal. The hip joint spaces are normal. Several soft tissue calcifications project adjacent to the right and left sides of the pelvis. There is mild diffuse osteopenia. Endplate sclerosis is noted at L5-S1. Procedure Note Ham Benz MD - 07/05/2017 Exam: XR HAND RIGHT 3+ VW, XR SACROILIAC JOINTS < 3 VW, XR FOOT LEFT 3+ VW, XR FOOT RIGHT 3+ VW, XR HAND LEFT 3+ VW History: Please evaluate for Joint pains, Back pain Comparison: None available. Findings: Right hand: There is no fracture or dislocation. The joint spaces are normal. Smalllucencies at the fourth distal interphalangeal joint are compatible withsubchondral cysts. No definite erosions are present. Bone mineralizationis slightly decreased. The soft tissues are normal. Left hand: There is no fracture or dislocation. The joint spaces are normal. Noerosions are present. Bone mineralization is slightly decreased. The softtissues are normal. A fourth proximal interphalangeal joint is held inflexion on all of the images, which may represent a flexion contracture. Right foot: There is no fracture or dislocation. The joint spaces are normal. Noerosions are present. Bone mineralization is mildly decreased. The softtissues are normal. A moderate plantar calcaneal spur is noted. Left foot: There is no fracture or dislocation. The joint spaces are normal. Noerosions are present. Bone mineralization is mildly decreased. The softtissues are normal. Sacroiliac joints: The sacroiliac joints are intact and symmetric, without erosion, widening,sclerosis, narrowing, or ankylosis. No displaced pelvic fracture ispresent. The pubic symphysis is normal. The hip joint spaces are normal.Several soft tissue calcifications project adjacent to the right and left sides of the pelvis. There is milddiffuse osteopenia. Endplate sclerosis is noted at L5-S1. IMPRESSION IMPRESSION: 1. No significant arthritis in the right or left hands. 2. The left hand fifth proximal interphalangeal joint is held in flexionon all the images. This could be due to positioning or due to a flexioncontracture. Please correlate with physical examination. 3. Moderate plantar calcaneal spur in the right foot. Otherwise nosignificant arthritis in the right or left feet. 4. Normal sacroiliac joints. 5. Mild diffuse osteopenia. This report was electronically signed by HAM BENZ MD on 08/21/20155:55 PM . Aniceto Barker MD DIAGNOSTIC IMAGING O RDERABLES * XR HAND LEFT 3VW OR MORE (08/21/2015 3:51 PM CDT) Anatomical Region Laterality Modality Wrist / Hand Other Impressions 08/21/2015 5:55 PM CDT IMPRESSION: 1. No significant arthritis in the right or left hands. 2. The left hand fifth proximal interphalangeal joint is held in flexion on all the images. This could be due to positioning or due to a flexion contracture. Please correlate with physical examination. 3. Moderate plantar calcaneal spur in the right foot. Otherwise no significant arthritis in the right or left feet. 4. Normal sacroiliac joints. 5. Mild diffuse osteopenia. This report was electronically signed by HAM BENZ MD ??on 08/21/2015 5:55 PM . Narrative 08/21/2015 5:55 PM CDT Exam: XR HAND RIGHT 3+ VW, XR SACROILIAC JOINTS < 3 VW, XR FOOT LEFT 3+ VW, XR FOOT RIGHT 3+ VW, XR HAND LEFT 3+ VW History: ??Please evaluate for Joint pains, Back pain Comparison: None available. Findings: Right hand: There is no fracture or dislocation. The joint spaces are normal. Small lucencies at the fourth distal interphalangeal joint are compatible with subchondral cysts. No definite erosions are present. Bone mineralization is slightly decreased. The soft tissues are normal. Left hand: There is no fracture or dislocation. The joint spaces are normal. No erosions are present. Bone mineralization is slightly decreased. The soft tissues are normal. ??A fourth proximal interphalangeal joint is held in flexion on all of the images, which may represent a flexion contracture. Right foot: There is no fracture or dislocation. The joint spaces are normal. No erosions are present. Bone mineralization is mildly decreased. The soft tissues are normal. ??A moderate plantar calcaneal spur is noted. Left foot: There is no fracture or dislocation. The joint spaces are normal. No erosions are present. Bone mineralization is mildly decreased. The soft tissues are normal. Sacroiliac joints: The sacroiliac joints are intact and symmetric, without erosion, widening, sclerosis, narrowing, or ankylosis. No displaced pelvic fracture is present. The pubic symphysis is normal. The hip joint spaces are normal. Several soft tissue calcifications project adjacent to the right and left sides of the pelvis. There is mild diffuse osteopenia. Endplate sclerosis is noted at L5-S1. Procedure Note Ham Benz MD - 07/05/2017 Exam: XR HAND RIGHT 3+ VW, XR SACROILIAC JOINTS < 3 VW, XR FOOT LEFT 3+ VW, XR FOOT RIGHT 3+ VW, XR HAND LEFT 3+ VW History: Please evaluate for Joint pains, Back pain Comparison: None available. Findings: Right hand: There is no fracture or dislocation. The joint spaces are normal. Smalllucencies at the fourth distal interphalangeal joint are compatible withsubchondral cysts. No definite erosions are present. Bone mineralizationis slightly decreased. The soft tissues are normal. Left hand: There is no fracture or dislocation. The joint spaces are normal. Noerosions are present. Bone mineralization is slightly decreased. The softtissues are normal. A fourth proximal interphalangeal joint is held inflexion on all of the images, which may represent a flexion contracture. Right foot: There is no fracture or dislocation. The joint spaces are normal. Noerosions are present. Bone mineralization is mildly decreased. The softtissues are normal. A moderate plantar calcaneal spur is noted. Left foot: There is no fracture or dislocation. The joint spaces are normal. Noerosions are present. Bone mineralization is mildly decreased. The softtissues are normal. Sacroiliac joints: The sacroiliac joints are intact and symmetric, without erosion, widening,sclerosis, narrowing, or ankylosis. No displaced pelvic fracture ispresent. The pubic symphysis is normal. The hip joint spaces are normal.Several soft tissue calcifications project adjacent to the right and left sides of the pelvis. There is milddiffuse osteopenia. Endplate sclerosis is noted at L5-S1. IMPRESSION IMPRESSION: 1. No significant arthritis in the right or left hands. 2. The left hand fifth proximal interphalangeal joint is held in flexionon all the images. This could be due to positioning or due to a flexioncontracture. Please correlate with physical examination. 3. Moderate plantar calcaneal spur in the right foot. Otherwise nosignificant arthritis in the right or left feet. 4. Normal sacroiliac joints. 5. Mild diffuse osteopenia. This report was electronically signed by HAM BENZ MD on 08/21/20155:55 PM . Aniceto Barker MD DIAGNOSTIC IMAGING O RDERABLES * XR SI JOINTS 2VW OR LESS (08/21/2015 3:51 PM CDT) Anatomical Region Laterality Modality Pelvis, Lower Extremity Other Impressions 08/21/2015 5:55 PM CDT IMPRESSION: 1. No significant arthritis in the right or left hands. 2. The left hand fifth proximal interphalangeal joint is held in flexion on all the images. This could be due to positioning or due to a flexion contracture. Please correlate with physical examination. 3. Moderate plantar calcaneal spur in the right foot. Otherwise no significant arthritis in the right or left feet. 4. Normal sacroiliac joints. 5. Mild diffuse osteopenia. This report was electronically signed by HAM BENZ MD ??on 08/21/2015 5:55 PM . Narrative 08/21/2015 5:55 PM CDT Exam: XR HAND RIGHT 3+ VW, XR SACROILIAC JOINTS < 3 VW, XR FOOT LEFT 3+ VW, XR FOOT RIGHT 3+ VW, XR HAND LEFT 3+ VW History: ??Please evaluate for Joint pains, Back pain Comparison: None available. Findings: Right hand: There is no fracture or dislocation. The joint spaces are normal. Small lucencies at the fourth distal interphalangeal joint are compatible with subchondral cysts. No definite erosions are present. Bone mineralization is slightly decreased. The soft tissues are normal. Left hand: There is no fracture or dislocation. The joint spaces are normal. No erosions are present. Bone mineralization is slightly decreased. The soft tissues are normal. ??A fourth proximal interphalangeal joint is held in flexion on all of the images, which may represent a flexion contracture. Right foot: There is no fracture or dislocation. The joint spaces are normal. No erosions are present. Bone mineralization is mildly decreased. The soft tissues are normal. ??A moderate plantar calcaneal spur is noted. Left foot: There is no fracture or dislocation. The joint spaces are normal. No erosions are present. Bone mineralization is mildly decreased. The soft tissues are normal. Sacroiliac joints: The sacroiliac joints are intact and symmetric, without erosion, widening, sclerosis, narrowing, or ankylosis. No displaced pelvic fracture is present. The pubic symphysis is normal. The hip joint spaces are normal. Several soft tissue calcifications project adjacent to the right and left sides of the pelvis. There is mild diffuse osteopenia. Endplate sclerosis is noted at L5-S1. Procedure Note Ham Benz MD - 07/05/2017 Exam: XR HAND RIGHT 3+ VW, XR SACROILIAC JOINTS < 3 VW, XR FOOT LEFT 3+ VW, XR FOOT RIGHT 3+ VW, XR HAND LEFT 3+ VW History: Please evaluate for Joint pains, Back pain Comparison: None available. Findings: Right hand: There is no fracture or dislocation. The joint spaces are normal. Smalllucencies at the fourth distal interphalangeal joint are compatible withsubchondral cysts. No definite erosions are present. Bone mineralizationis slightly decreased. The soft tissues are normal. Left hand: There is no fracture or dislocation. The joint spaces are normal. Noerosions are present. Bone mineralization is slightly decreased. The softtissues are normal. A fourth proximal interphalangeal joint is held inflexion on all of the images, which may represent a flexion contracture. Right foot: There is no fracture or dislocation. The joint spaces are normal. Noerosions are present. Bone mineralization is mildly decreased. The softtissues are normal. A moderate plantar calcaneal spur is noted. Left foot: There is no fracture or dislocation. The joint spaces are normal. Noerosions are present. Bone mineralization is mildly decreased. The softtissues are normal. Sacroiliac joints: The sacroiliac joints are intact and symmetric, without erosion, widening,sclerosis, narrowing, or ankylosis. No displaced pelvic fracture ispresent. The pubic symphysis is normal. The hip joint spaces are normal.Several soft tissue calcifications project adjacent to the right and left sides of the pelvis. There is milddiffuse osteopenia. Endplate sclerosis is noted at L5-S1. IMPRESSION IMPRESSION: 1. No significant arthritis in the right or left hands. 2. The left hand fifth proximal interphalangeal joint is held in flexionon all the images. This could be due to positioning or due to a flexioncontracture. Please correlate with physical examination. 3. Moderate plantar calcaneal spur in the right foot. Otherwise nosignificant arthritis in the right or left feet. 4. Normal sacroiliac joints. 5. Mild diffuse osteopenia. This report was electronically signed by HAM BENZ MD on 08/21/20155:55 PM . Aniceto Barker MD DIAGNOSTIC IMAGING O RDERABLES * (ABNORMAL) DNA ANTIBODY DS CRITHIDIA IFA (03/02/2013 12:06 PM BENDING MACHINE SET UP OPERATOR) Only the most recent of2 resultswithin the time period is included. dsDNA Antibody Crithidia IFA POSITIVE( A) NEGATIVE [facility] Comment: This test was developed and its performance characteristics have been determined by [facility]. It has not been cleared or approved by the U.S. Food and Drug Administration. The FDA has determined that such clearance or approval is not necessary. Performance characteristics refer to the analytical performance of the test. dsDNA Antibody Crithidia Titer 1:40(H) <1:10 [facility] Comment: Test Performed at: [facility] [address] [place], [place] ??[address] JASWANT BARNES MD PHD 03/02/2013 12:0 6 PM BENDING MACHINE SET UP OPERATOR 03/02/2013 12:08 PM BENDING MACHINE SET UP OPERATOR Aniceto Barker MD LAB - SEROLOGY ORDER ROSA Performing Organization Address City/[facility]/ZIP Co de Phone Number [facility] * THYROID PEROXIDASE ANTIBODY (03/02/2013 12:06 PM BENDING MACHINE SET UP OPERATOR) Only the most recent of2 resultswithin the time period is included. Thyroid Peroxidase TPO Antibody <10 <35 IU/mL [facility]) Comment: Test Performed at: [facility] [address] [place], [place] ??[address] SAAD HAMILTON DO,MPH 03/02/2013 12:0 6 PM BENDING MACHINE SET UP OPERATOR 03/02/2013 12:08 PM BENDING MACHINE SET UP OPERATOR Aniceto Barker MD LAB - CHEMISTRY ORDE AREN Performing Organization Address City/[facility]/ZIP Co de Phone Number [facility] * THYROGLOBULIN ANTIBODY (03/02/2013 12:06 PM BENDING MACHINE SET UP OPERATOR) Thyroglobulin Antibody <20 <20 IU/mL [facility]) Comment: Test Performed at: [facility] [address] [place], [place] ??[address] SAAD HAMILTON DO,MPH Venous blood specimen (specimen) 03/02/2013 12:06 PM BENDING MACHINE SET UP OPERATOR 03/02/2013 12:08 PM BENDING MACHINE SET UP OPERATOR Aniceto Barker MD LAB - CHEMISTRY ALFREDO YOUNGER Performing Organization Address [facility]/ZIP Co de Phone Number [facility] * LAB HISTORICAL RESULTS-ONBASE (02/26/2013) Only the most recent of3 resultswithin the time period is included. 02/26/2013 Narrative [facility] - 03/01/2013 9:29 AM BENDING MACHINE SET UP OPERATOR Historical Provider LAB - CHEMISTRY Yaniv VALDEZ Performing Organization Address [facility] Co de Phone Number [facility] [address] * [place] BLOOD SCREEN W/REFLEX TITER (09/02/2012 9:39 AM CDT) [place] Screen NEGATIVE NEGATIVE [facility] Comment: REPORT COMMENT: COPY TO PATIENT; COPY TO PCP, RADHA ENRIQUEZ, FAX:[phone]- Test Performed at: [facility] [address] [place], [place] ??[address] SAAD HAMILTON DO,MPH 09/02/2012 9:39 AM CDT 09/02/2012 9:41 AM CDT Narrative [facility] - 09/03/2012 2:00 PM CDT Copy to patient Copy to PCP, Radha Enriquez, fax:[phone] Aniceto Barker MD LAB - CHEMISTRY ALFREDO YOUNGER Performing Organization Address City/[facility]/ZIP Co de Phone Number [facility] * SS-B (SJOGRENS'S) ANTIBODY (09/02/2012 9:39 AM CDT) Sjogren's Antibodies (SSB) <1.0 NEG <1.0 NEG AI [facility]) Comment: REPORT COMMENT: COPY TO PATIENT; COPY TO PCPRADHA, FAX:[phone]- Test Performed at: [facility] [address] [place], [place] ??[address] SAAD HAMILOTN DO,MPH Venous blood specimen (specimen) 09/02/2012 9:39 AM CDT 09/02/2012 9:41 AM CDT Narrative [facility] - 09/03/2012 12:00 PM CDT Copy to patient Copy to PCP, Radha Enriquez, fax:[phone] Aniceto Barker MD LAB - CHEMISTRY ALFREDO YOUNGER Performing Organization Address City/[facility]/ZIP Co de Phone Number [facility] * SS-A (SJOGREN'S) ANTIBODY (09/02/2012 9:39 AM CDT) Sjogren's Antibodies (SSA) <1.0 NEG <1.0 NEG AI [facility] Comment: Test Performed at: [facility] [place], [place] ??[address] SAAD HAMILTON DO,MPH Venous blood specimen (specimen) 09/02/2012 9:39 AM CDT 09/02/2012 9:41 AM CDT Narrative [facility] - 09/03/2012 12:00 PM CDT Copy to patient Copy to PCP, Radha Enriquez, fax:[phone] Aniceto Barker MD LAB - CHEMISTRY ALFREDO YOUNGER Performing Organization Address [facility]/ZIP Co de Phone Number [facility] * SCLERODERMA 70 (SCL) ANTIBODY (09/02/2012 9:39 AM CDT) EDGAR SCL-70 Antibody <1.0 NEG <1.0 NEG AI [facility]) Comment: Test Performed at: [facility] [address] [place], [place] ??[address] SAAD HAMILTON DO,MPH 09/02/2012 9:39 AM CDT 09/02/2012 9:41 AM CDT Narrative [facility] - 09/03/2012 12:00 PM CDT Copy to patient Copy to PCP, Radha Enriquez, fax:[phone] Aniceto Barker MD LAB - CHEMISTRY ALFREDO YOUNGER Performing Organization Address [facility]/ZIP Co de Phone Number [facility] * TSH (09/02/2012 9:39 AM CDT) Only the most recent of2 resultswithin the time period is included. TSH 1.07 0.40 - 4.50 mIU/L [facility] Comment: REPORT COMMENT: COPY TO PATIENT; COPY TO PCP, RADHA ENRIQUEZ, FAX:[phone]- Test Performed at: [facility] ??[phone] SAAD HAMILTON DO,MPH Venous blood specimen (specimen) 09/02/2012 9:39 AM CDT 09/02/2012 9:41 AM CDT Narrative [facility] - 09/03/2012 6:00 AM CDT Copy to patient Copy to PCP, Radha Enriquez, fax:[phone] Aniceto Barker MD LAB - CHEMISTRY ALFREDO YOUNGER Performing Organization Address [facility] de Phone Number [facility] * T3 FREE DIALYSIS LC/MS (11/05/2011 3:28 PM CDT) T3 Free 223 210 - 440 pg/dL [facility] Comment: Reference Ranges for Free T3: ?? 200 - 380 pg/dL (all trimesters) T3 Total 89 76 - 181 ng/dL [facility]) Comment: Test Performed at: [facility]/[address] ??[phone] KAI CAMARILLO MD 11/05/2011 3:28 PM CDT 11/05/2011 3:32 PM CDT Jose Boone MD LAB - CHEMISTRY ORD ERABLES [facility]) * T4 FREE DIRECT DIALYSIS (11/05/2011 3:28 PM CDT) T4 Free Direct Dialysis 2.6 0.8 - 2.7 ng/dL [facility] Comment: Test Performed at: [facility]/[address] ??[phone] KAI CAMARILLO MD 11/05/2011 3:28 PM CDT 11/05/2011 3:32 PM CDT Jose Boone MD LAB - CHEMISTRY ORD ERABLES [facility] Care Teams Tower Dragline Operator Relationship Specialty Start Date End Date Radha Enriquez DO [address] [place] [id number] PCP - General Internal Medicine 04/10/16
--- OUTSIDE RECORDS SUMMARY | 2024-04-29 16:16 | XMS_ITS | Referral Summary ---
Author Organization [facility] Address [address] [place] [address] Phone Care Team Providers Care Soil Field Technician Name Role Phone Juan Davis MD Unavailable [phone] No, Physician Primary Care Provider [phone] Allergies Active Allergy Reactions Criticality Noted Date Comments Acetaminophen-Codeine Stomach upset Reaction: GI upset, Aspirin Nausea And Vomiting Low 12/07/2013 Duloxetine Other (See comments),Palpitatio ns High 11/04/2011 Flushing. Serotonin Syndrome Duloxetine Hcl Unknown 08/08/2021 Hydroxychloroquine Hydroxychloroquine Sulfate Nausea And Vomiting Low 11/04/2011 Milnacipran Shortness of breath High Modafinil Shortness of breath High 11/04/2011 Nsaids (Non-Steroidal Anti-Inflammatory Drug) Nausea And Vomiting 06/10/2018 Gastritis Other Nausea And Vomiting Low 11/04/2011 Peg-Electrolyte Soln Nausea And Vomiting 2018 Polyethylene Glycol 3350 Unknown 08/08/2021 Polyethylene Glycols Stomach upset Low 08/08/2021 Potassium Chloride Unknown 08/08/2021 Pregabalin Unknown 08/08/2021 Nabumetone Unknown Low 11/04/2011 Fatigue Sertraline Other (See comments),Palpitatio ns Low 11/04/2011 Reaction: Other, Sertraline Hcl Palpitations Low 08/08/2021 Sodium Unknown 08/08/2021 Sodium Bicarbonate Unknown 08/08/2021 Sodium Chloride Unknown 08/08/2021 Sodium Sulfate Unknown 08/08/2021 Sulindac Other (See comments) Low 06/10/2018 Stomach burning - felt like ulcers Medications diclofenac sodium (VOLTAREN) 1 % gel apply (2G) by TOPICAL route 4 times every day to affected area(s) 3 3 01/27/20 09 Active HYDROcodone-acetam inophen (NORCO) 7.5-325 mg per tablet take 1 tablet by oral route every 6 hours as needed for pain 0 0 08/22/19 16 Active Additional Information Patient not taking.Reported on 01/15/2024 lidocaine (GLYDO) 2 % jelly in applicator rectally 0 0 06/12/19 11 Active topiramate (TOPAMAX) 25 mg tablet 1 tablet twice daily 0 0 08/22/19 16 Active Additional Information Patient not taking.Reported on 01/15/2024 diazePAM (VALIUM) 5 mg tablet take 1 tablet by oral route 3 times every day 0 0 08/22/19 16 Active Additional Information Patient not taking.Reported on 01/15/2024 metoclopramide (REGLAN) 5 mg tablet take 1 tablet by oral route 3 times every day 30 minutes before meals and at bedtime 0 0 09/06/19 16 Active Additional Information Patient not taking.Reported on 01/15/2024 bisacodyl EC (DULCOLAX, BISACODYL,) 5 mg EC tablet take 1 tablet by oral route every day as needed 0 0 09/06/19 16 Active Additional Information Patient not taking.Reported on 01/15/2024 betamethasone dipropionate (DIPROLENE) 0.05 % ointment apply by topical route every day a thin layer to the affected area(s) 0 0 09/06/19 16 Active Additional Information Patient not taking.Reported on 01/15/2024 lidocaine (XYLOCAINE) 5 % ointment 5 %. 0 0 09/06/19 16 Active cholecalciferol (VITAMIN D3) 2,000 unit tablet 0 0 09/06/19 16 Active calcium carbonate (CALCIUM 600) 1,500 mg (600 mg of elemental calcium) tablet twice daily 0 0 09/06/19 16 Active triamterene-hydroC HLOROthiazide (MAXZIDE,DYAZIDE) 37.5-25 mg per tablet take 1/2 tablet as needed 0 0 09/06/19 16 Active tobramycin-dexAMET Hasone (TOBRADEX) ophthalmic solutionIndication s:Apply to the base of the eyelid margins BID with clean cotton swab 2/x daily. Administer 1 drop into both eyes 2 (two) times a day 10 mL 3 06/22/19 20 Active Additional Information Patient not taking.Reported on 01/15/2024 clopidogreL (PLAVIX) 75 mg tablet Take 1 tablet (75 mg total) by mouth daily 06/01/19 21 Active calcium phos,dibas-vitamin D3 105-120 mg-unit tablet Take by mouth Active dicyclomine (BENTYL) 20 mg tablet Take 20 mg by mouth 3 (three) times a day as needed 04/05/20 20 Active ondansetron ODT (ZOFRAN-ODT) 4 mg disintegrating tablet Active pimecrolimus (ELIDEL) 1 % cream Apply to face twice a day. 30 days supply. 06/11/19 19 Active dexAMETHasone (DECADRON) 1 mg tablet Take at 11 PM, the night before you go to have your cortisol lab test. 1 tablet 07/21/19 21 Active Additional Information Patient not taking.Reported on 01/15/2024 omeprazole (PriLOSEC) 20 mg capsule Take by mouth daily 07/23/19 21 Active SUMAtriptan (IMITREX) 100 mg tablet Take by mouth 05/19/19 21 Active methylPREDNISolone (Medrol, Miguel Angel,) 4 mg Dosepack Take 1 tablet (4 mg total) by mouth as directed Take as directed on package 1 packet 07/10/19 22 Active Additional Information Patient not taking.Reported on 01/15/2024 Active Problems Problem Noted Date Diagnosed Date Acute bilateral knee pain 09/17/2021 Primary osteoarthritis of both knees 09/17/2021 Traumatic incomplete tear of left rotator cuff 0 06/19/2021 Assessment & Plan (09/11/2021 4:15 PM CDT): Overall patient has done very well with outpatient physical therapy. She has near full range of motion. She no longer has capsular tightness. She is pleased with her response to therapy and the injection. She will transition to a home exercise program. She was provided a home exercise work sheet. She will follow-up with me as needed. Assessment & Plan (06/20/2021 1:58 PM CDT): MRI of the left shoulder was reviewed which shows partial articular sided tearing of the supraspinatus tendon without evidence of full-thickness tear. There is no fatty infiltration or atrophy of the supraspinatus or infraspinatus muscle bellies. Treatment options were discussed. She does have partial articular sided tearing which could account for some of her pain however she examines more consistent with he adhesive capsulitis that she has tightness in flexion and external rotation with passive range of motion. She elected to proceed with a left shoulder subacromial space injection and outpatient physical therapy. She will follow up with me in 6 weeks. 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 Recommend PFATs BID+. Start Azasite - apply to the eyelid margins BID both eyes (OU). RTC 2 mo f/u. Dermatochalasis of both upper eyelids 06/03/2019 Assessment & Plan (06/03/2019 5:15 PM NONPROFIT MANAGER): Status post (s/p) bilateral blepharoplasty in 2007. Pt not bothered with appearance at this time. Pt ed re: option for referral to plastics. Age-related nuclear cataract of both eyes 2019 Assessment & Plan (06/03/2019 5:16 PM NONPROFIT MANAGER): Defer cataract surgery until signs and symptoms indicate. Pt was educated on the diagnosis. Recommend daily UV protection. Abnormal gait 09/18/2015 Common migraine with intractable migraine 2015 Overview (07/13/2016): Chronic migraine without aura, intractable, without status migrainosus Mild cognitive disorder 09/06/2015 Overview (07/13/2016): Mild cognitive impairment with memory loss Abnormal involuntary movement 09/06/2015 Overview (07/13/2016): Abnormal involuntary movements Anxiety 02/24/2015 Fibromyalgia 02/24/2015 Migraine headache 02/24/2015 Chronic pain 02/24/2015 Lumbar radiculopathy 02/24/2015 Degeneration of intervertebral disc of lumbar re gion 02/24/2015 Osteoarthritis of thoracic spine 02/24/2015 Polyarthralgia 08/21/2013 Overview (07/10/2016): JOINT PAIN-MULT JTS Raynaud's phenomenon 08/21/2013 Overview (07/10/2016): RAYNAUD'S SYNDROME Fibrositis 08/21/2013 Overview (07/12/2016): FIBROMYALGIA Myopathy 08/21/2013 Overview (07/13/2016): MYALGIA AND MYOSITIS NOS Osteoporosis 10/24/2011 Cervicalgia 10/24/2011 Degeneration of intervertebral disc of cervical region 10/24/2011 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 Immunizations Name Administration Dates Next Due Influenza, Trivalent, Preservative Free, Intramu scular 02/05/2015 Social History Tobacco Use Types Packs/Day Years Used Date Smoking Tobacco: Every Day Alcohol Use Standard Drinks/Week Comments Yes 0 (1 standard drink = 0.6 oz pur e alcohol) Comments Unknown Sex and Gender Information Value Date Recorded Sex Assigned at Not on file Legal Sex Female 1:00 AM NONPROFIT MANAGER Gender Identity Female 12/12/2020 6:03 PM CDT Sexual Orientation Not on file Last Filed Vital Signs Vital Sign Reading Time Taken Comments Blood Pressure 127/84 01/15/2024 2:21 PM CDT Pulse 67 01/15/2024 2:21 PM CDT Temperature 36.5 ??C (97.7 ??F) 10/16/2020 3:23 PM CD T Respiratory Rate - - Oxygen Saturation 98% 10/16/2020 3:23 PM CDT Inhaled Oxygen Concentration - - Weight 66.7 kg (147 lb) 01/15/2024 2:21 PM CDT Height 167.6 cm (5' 6 ) 01/15/2024 2:21 PM CDT Body Mass Index 23.73 01/15/2024 2:21 PM CDT Plan of Treatment Not on file Procedures Procedure Name Priority Date/Time Associated Diagnosis Comments DEXA AXIAL SKELETON BONE DENSITY 1 OR MORE SITES Schedule Routine, Read Routine (OP Routine) 07/11/2020 11:46 AM CDT Osteopenia, unspecified location from Last 3 Months or Most Recently Relevant to Health Maintenance Results * Dexa Axial Skeleton Bone Density 1 or 2 Site (07/11/2020 11:46 AM CDT) Anatomical Region Laterality Modality Body N/A Radiographic Alee ging Narrative 07/13/2020 3:30 PM CDT Patient Name: Geovanna Sarmiento Date of : 1950 Date of scan: 07/11/2020 Bone mineral density was performed on a [employer] Discovery Densitometer. ?? Based on machine cross-calibration and precision studies the least significant changes of this densitometer is 0.024 g/cm2 at the spine, 0.020 g/cm2 at the total proximal femur, and 0.014g/cm2 at the forearm. HISTORY: This is a 69 y.o. postmenopausal female with a history of osteoporosis, thyroid disease and vitamin D deficiency. She reports that she has been smoking. She does not have any smokeless tobacco history on file. She is currently on treatment with calcium, vitamin D and anticoagulants; and was previously treated with alendronate (Fosamax), ibandronate (Boniva), teriparatide (Forteo), glucocorticoids and hormone replacement therapy. She has a current complaint of arm pain, back pain, neck pain and leg pain. INDICATIONS: Menopause status, history of glucocorticoids use, vitamin D deficiency and history of osteoporosis. FINDINGS: BONE MINERAL DENSITY OF THE LUMBAR SPINE Bone Mineral Density (BMD) of the lumbar spine was measured from L1-L4 and the average density was calculated to be 0.640 gm/cm2. This corresponds to a T-score (standard deviations from the mean of young adults) of -3.7. There is no previous study available for comparison. BONE MINERAL DENSITY OF THE PROXIMAL FEMUR Bone Mineral Density (BMD) of the left hip total was found to be 0.639 gm/cm2. This corresponds to a T-score standard deviations from the mean of young adults of -2.5. Femoral neck is 0.574 gm/cm2 with a T-score (standard deviations from the mean of young adults) of -2.5. There is no previous study available for comparison. SUMMARY: Bone mineral density shows evidence of osteoporosis and marked increase risk of fracture. ADDITIONAL COMMENTS: Postmenopausal Women and Men Over 50: Diagnostic criteria: Osteoporosis: BMD at or below -2.5 T-score; Osteopenia (low bone mass): BMD between -1.0 and -2.5 T-score. If the patient has a history of a fragility fracture, a fracture that occurred with trauma equivalent to a fall from a standing position or less, then the diagnosis is osteoporosis regardless of bone density. The history and data sections of the bone mineral density scan were prepared by RT Calvin who is accredited by the International Society of Clinical Densitometry. The overall patient assessment and scan interpretation were performed by Zheng Alvarado M.D. who is certified by the International Society of Clinical Densitometry. [id number] Zheng Alvarado MD IMG DXA PROCEDURES Final Result from Last 3 Months or Most Recently Relevant to Health Maintenance Insurance MEDICARE [facility] [address] [place] [address] MEDICARE [facility] MEDICARE [facility] MEDICARE [facility] Address: [facility] [address] [place] [address] Care Teams Soil Field Technician Relationship Specialty Start Date End Date No, Physician PCP - General 01/15/24 Juan Davis MD [address] [facility] [address] [place] [address] Consulting Physician Rheumatology 07/23/18
--- OUTSIDE RECORDS SUMMARY | 2024-04-29 16:16 | XMS_ITS | Clinical Summary ---
Author Organization [facility] Address [address] [place] [address] Phone Care Team Providers Care Nsh Teacher Name Role Phone Juan Davis MD Unavailable [phone] No, Physician Primary Care Provider [phone] Allergies Active Allergy Reactions Criticality Noted Date [...] 06/03/2019 Assessment & Plan (06/03/2019 5:12 PM NP): Start Ocusoft eyelid wipes + hypochlorous eyelid spray BID both eyes (OU). Recommend PFATs BID+. Start Azasite - apply to the eyelid margins BID both eyes (OU). RTC 2 mo f/u. Dermatochalasis of both upper eyelids 06/03/2019 Assessment & Plan (06/03/2019 5:15 PM NP): Status post (s/p) bilateral blepharoplasty in 2007. Pt not bothered with appearance at this time. Pt ed re: option for referral to plastics. Age-related nuclear cataract of both eyes 2019 Assessment & Plan (06/03/2019 5:16 PM NP): Defer cataract surgery until signs and symptoms [...] Influenza, Trivalent, Preservative Free, Intramu scular 02/05/2015 Surgical History Surgery Date Site/Laterality Comments TUBAL LIGATION Bilateral tubal ligation OTHER SURGICAL HISTORY D&C OTHER SURGICAL HISTORY Hepatitis C: resolvedp tx Medical History Medical History Date Comments Hx Other Medical Hep C Peptic ulcer Peptic ulcer dis ease Depression Depression Hepatitis C virus infection Hepa titis C Hx Other Medical chronic fatigue Hx Other Medical Headache, migra ine Hx Other Medical peptic ulcer dz Irritable bowel syndrome Irritab le bowel disease Hx Other Medical Hx of lupus Hx Other Medical Cervical disc d isorder Hx Other Medical Lumbar disc dis ease Family History Medical History Relation Name Comments Diabetes Brother Diabetes mellit us; Coronary artery disease Father Jeff nary artery disease; Cause of : Coronary artery disease Stroke Sister Stroke; Relation Name Status Comments Brother Father (Age 79) Sister Social History Tobacco Use Types Packs/Day Years Used Date Smoking Tobacco: Every Day Alcohol Use Standard Drinks/Week Comments Yes 0 (1 standard drink = 0.6 oz pur e alcohol) Comments Unknown Sex and Gender Information Value Date Recorded Sex Assigned at Not on file Legal Sex Female 1:00 AM NP Gender Identity Female 12/12/2020 6:03 PM CDT Sexual Orientation Not on file Obstetrics History Last Filed Vital Signs Vital Sign Reading [...] 01/15/2024 2:21 PM CDT Plan of Treatment Health Maintenance Due Date Last Done Comments Breast Cancer Screening-Mammogram 1950 Colon Cancer Screening-Colonoscopy 1950 Depression Screening 1950 Fall Risk Assessment 1950 Hepatitis B Screening 1970 Well Visit 65+ 2017 Pneumococcal vaccine 65+ (2 of 2 - PPSV23 or PCV20) 03/21/2018 01/24/2018 Osteoporosis Screening-Bone Density Scan 07/11/2022 07/11/2020 Influenza Vaccine (#1) 2023 8, 01/05/2018, 02/23/2017, Additional history exists DTaP/Tdap/Td Vaccine (2 - Td or Tdap) 01/23/2025 01/23/2015 Hepatitis C Screening Completed 06/11/2010 Zoster Vaccine Completed 12/10/2018, 09/17/2018 Procedures Procedure Name Priority Date/Time Associated Diagnosis [...] Bone mineral density was performed on a [employer] Discovery Densitometer. ?? Based on machine cross-calibration [...] by the International Society of Clinical Densitometry. [id number] Zheng Alvarado MD IMG DXA PROCEDURES Final Result from Last 3 Months or Most Recently Relevant to Health Maintenance Insurance MEDICARE [facility] MEDICARE [facility] MEDICARE [facility] MEDICARE Care Teams Nsh Teacher Relationship Specialty Start Date End Date No, Physician PCP - General 01/15/24 Juan Davis MD [address] [address] Consulting Physician Rheumatology 07/23/18
--- OUTSIDE RECORDS SUMMARY | 2024-04-29 16:16 | XMS_ITS | Continuity of Care Document ---
Author Organization [facility] Address [address] [place] [address] Phone Care Team Providers Care Stock Chaser Name Role Phone Joseph TORRES, Sami Unavailable Unavailable Allergies, Adverse Reactions, Alerts Substance Reaction Status Criticality POLYETHYLENE GLYCOL GI Problems Active No Infor mation SODIUM SULFATE ANHYDROUS Active No Information sodium sulfate Active No Informatio n sodium chloride Active No Informati on SODIUM BICARBONATE Active No Inform ation sodium Active No Information POTASSIUM CHLORIDE Active No Inform ation polyethylene glycol 3350 Active No Information polyethylene glycol Active No Infor mation pregabalin Active No Information DULOXETINE HCL Active No Informatio n celecoxib Stomach Pain Active No Information SERTRALINE HCL Palpitations Active No Informatio n sulindac Active No Information MILNACIPRAN HCL GI Problems Active No Informati on nabumetone Nausea / Vomiting Active No Informa tion HYDROXYCHLOROQUINE SULFATE Nausea / Vomiting Active No Information NSAIDS (Non-Steroidal Anti-Inflammatory Drug) Nausea Active No Information aspirin Hemoglobin low Active No Informatio n Medications Medication Instructions Dosage Effective Dates (start - stop) Status Comments hydrocodone 5 mg-acetaminophen 325 mg tablet take 1 tablet by oral route every 6 hours as needed for pain as needed 1.00 tablet - Active PRN for pain, avoid driving or operate machines Diflucan 150 mg tablet take 1 tablet by oral route once as needed - Active PRN for yeast infection Valium 5 mg tablet take 1 tablet by oral route 2 times every day as needed 5 MG - Active Imitrex 100 mg tablet take 1 tablet by oral route as needed 100 MG - Active take 1/2 tab orally at onset of headache, may repeat x 1/2 in two hours, max 100 mg/24 hours omeprazole 20 mg capsule,delayed release take 1 capsule by oral route BID - Active Plavix 75 mg tablet take 1 tablet by oral route every day 75 MG - Active Procedures Procedure Date OFFICE/OUTPATIENT VISIT, EST OFFICE/OUTPATIENT VISIT, EST OFFICE/OUTPATIENT VISIT, EST PPPS, subseq visit OFFICE/OUTPATIENT VISIT, NEW Advance Directives Directive Yes / No Effective Date File Name No Information Encounters Encounter Description Practice Location Reason(s) For Visit Diagnoses Date Provider Providers Copied on Encounter [facility], [address] [place], [id number], [place] tel:[phone] [facility] No Information 2 Joseph Ferrari [address], [place], [place], [address] , [place]. tel:[phone] OFFICE/OUTPA TIENT VISIT, [facility], [address], [place], [place], [address], [place] tel:[phone] [facility] chronic pain1 (chief complaint) Chronic pain syndromeOther spondylosis, lumbar region 2 Joseph Gallardo. [address], [place], [place], [address] , [place]. tel:[phone] OFFICE/OUTPA TIENT VISIT, [facility], [address], [id number], [place] tel:[phone] [facility] pain (chief complaint) Chronic pain syndromeOther spondylosis, lumbar region 2 Joseph Gallardo. [address], [place], [place], [address] , [place]. tel:[phone] OFFICE/OUTPA TIENT VISIT, [facility], [address] [place], [id number], [place] tel:[phone] [facility] chronic pain1 (chief complaint) urinary urgencny1 (chief complaint) Chronic pain syndromeOveractive bladder 2 Joseph Gallardo. [address], [place], [place], [address] , [place]. tel:[phone] OFFICE/OUTPA TIENT VISIT, [facility], [address], [place], [place], [address], [place] tel:[phone] [facility] PHysical (chief complaint) Encounter for general adult medical exam w abnormal findingsFibromyalgi aGERD w/o esophagitisOsteopor osisVenous insufficiencyMigrai ne 2 Joseph Gallardo. [address], [place], [place], [address] , [place]. tel:[phone] Family History Family Member Type Diagnosis Age At Onset Father Problem 84 for some type of ble eding but not sure Mother Problem parkinson, still alive Brother Problem Alive and well Payers Payer name Insurance type Covered alliance party ID Authoriza tion(s) No Information Social History Type Description Quantity Date Captured Comments Alcohol Use Details Unknown Caffeine Use Details Unknown Tobacco Use Status Smoking Status No Information Sex Female Chief Complaint And Reason For Visit No Information Plan Of Treatment Date Type Action Status Referral Ordered: Pain Medicine (related to Chronic pain syndrome) ordered Referral Ordered: Referrals: Pain Medicine. Evaluate and treat ordered Referral Ordered: MRI NECK SPINE W/O DYE ordered History Of Present Illness Encounter Date Complaint History Of Prese nt Illness chronic pain1 Pt has chronic n eileen and back pain Pt has sciatica and neuropathy symptoms Pt denies any loss of bowel or bladder control Pt denies any saddle area paresthesia Pt underwent ablation therapy but did not help. Pt is waiting for pain management. Pt states that medrol did help with sciatica symptoms but not much for her pain. Pt has 7/10 pain daily. Pt states that she has hard time getting out of bed due to pain pain Pt has chronic s evere neck and back pain. Pt has sciatica and neuropathy symptoms. Pt had MRi of C and t and l spine done which showed severe DDD. Pt underwent back nerve ablation and injection in the past but did not help. Pt is interested in pain pump placement. Pt currently is in severe pain and she wants refill of norco Pt also wants a round medrol dose gil. chronic pain1 Pt has chronic s evere neck and back pain. Pt has sciatica and neuropathy symptoms. Pt denies any loss of bowel or bladder control or any saddle area paresthesia. Pt had MRi of C and t and l spine done last week which showed moderate DDD only. . Pt underwent nerve ablation and injection in the past but did not help. urinary urgencny1 Pt c/o chronic urinary urgency and frequency. Pt has history of ? uterine prolapse. Pt denies any pelvic pain Pt wants UA test. Pt just saw [facility] yesterday but she did not do pelvic exam Pt had breast exam done and she will do mammo soon. Pt also has urinary urgency. Pt states that she was told that she dose NOT have DM. Pt also denies any fever, chill, flank pain. PHysical Pt needs annual physical Pt has not seen PCP for 1.5 years. Pt moved here from [place] two years ago. Pt has history of gastritis. Pt takes omeprazole 20 mg once per day. Pt had EGD done by Dr. Esquivel two years ago which showed gastritis. Pt states that she has been on omeprazole BID for a while and now she is on omeprazole once per day since recently. Pt has arpita with GI in 3 days. Pt also takes plavix daily for the past two years. Pt states that she does not have any known CAD or stenting or any PAD Pt states that she is on plavix for venous stent. Pt sees Dr. Platt who is prescribing plavix for her. Pt also has fibromyalgia. Pt has chronic neck and back pain Pt states that she has pain diffusely all over her body. Pt takes norco 1/2 of 7.5 mg PRn. Pt also takes valium 5 mg BID PRN for muscle pain PRN. Pt has not had above medication for 1.5 years since she has not seen her previous PCP for 1.5 years. Pt rarely takes above meds. Pt sees sales and marketing specialist in [facility] for left shoulder pain who referred her to PT. She also has chronic migraine headache. pt denies any head injury or waking up at night with headache. Pt denies worsening headache .pt has headache 1-2 per month. pt sees neurology. Pt had normal MRI of brain Instructions Date Instruction Additional Infor mation No Information Assessments Type Assessment Date No Information
--- OUTSIDE RECORDS SUMMARY | 2024-04-29 16:16 | XMS_ITS | Encounter Summary ---
Author Organization [facility] Address [address] [place] [address] Care Team Providers Care Asp Net Mvc Developer Name Role Phone Sheldon Tee Haque DO Primary Care Provider [phone] Encounter Details Date Type Department Care Team (Late st Contact Info) Description 07/17/2018 Lab Requisition [facility] Care DermPath Lab [address] [place] [id number] Serge Hawley MD [address] [address] [address] [place] [address] Social History Tobacco Use Types Packs/Day Years Used Date Smoking Tobacco: Some Days Cigarettes Smokeless Tobacco: Never Alcohol Use Standard Drinks/Week Comments Yes 0 (1 standard drink = 0.6 oz pur e alcohol) Rare Sex and Gender Information Value Date Recorded Sex Assigned at Not on file Gender Identity Not on file Sexual Orientation Not on file documented as of this encounter Plan of Treatment Not on file documented as of this encounter Procedures Procedure Name Priority Date/Time Associated Diagnosis Comments DERMATOPATHOLOGY Routine 07/16/2018 12:0 0 AM CDT documented in this encounter Results * DERMATOPATHOLOGY (07/16/2018 12:00 AM CDT) Case Report Dermatopathology Report ? Case: [id number] ? Authorizing Provider: ??Serge Hawley MD ?Collected: ? 07/16/2018 12:00 AM ? Pathologist: ? Payal Lucero MD ? Received: ?07/17/2018 11:34 AM ? Specimen: ?Skin, left upper arm ? 1:58 PM CDT DERMATOPATHOLOGY LABORATORY Final Diagnosis Specimen A. SKIN, left upper arm: EPIDERMOID CYST WITH HYPERTROPHIC SCAR (L72.0) (L91.0) NOT PRESENT AT MARGIN (see microscopic description) 1:58 PM T DERMATOPATHOLOGY LABORATORY Clinical History Lesion. Check margins. 1:58 PM CDT DERMATOPATHOLOGY LABORATORY Gross Description Specimen A: Received is one formalin filled container labeled with the patient's name and designated left upper arm. The specimen consists of a non-oriented ellipse of skin measuring 36m0n3rh. The epidermal surface consists of a centrally located 6z1v7rs erosion. The margin is inked green. The 12 o'clock and 6 o'clock tips are submitted in cassette 1. The remainder of the ellipse is serially sectioned and submitted in cassettes 2-3. Jar 0. 1:58 PM CDT DERMATOPATHOLOGY LABORATORY Microscopic Description Specimen A. SKIN, [...] the margin of the specimen. 1:58 PM CDT DERMATOPATHOLOGY LABORATORY Disclaimer An external and internal positive and negative controls are appropriate for the histochemical, immunohistochemical and immunofluorescence stain(s) in this case (if any), except where stated explicitly. The performance characteristics of the stain(s) cited in this report were developed and its performance characteristic determined by the Dermatopathology Laboratory at [facility], directed by Dr. Mary Celaya. These tests need not be, and therefore are not, approved by the [place] Food and Drug Administration. The tests are used for clinical purposes. Billing Codes Specimen Charges Stain Charges 13310 1 53259 1 9 1:58 PM CDT DERMATOPATHOLOGY LABORATORY Embedded Images 1:58 PM CDT DERMATOPATHOLOGY LABORATORY Pathology/Cytolog y TISSUE SPECIMEN FROM SKIN / Unknown 07/16/2018 07/17/2018 11:34 AM CDT Serge Hawley MD LAB - PATHOLOGY/CYTO LOGY ORDERABLES DERMATOPATHOLOGY LABORATORY [facility] - Department of Dermatology [address] [place] [address], [address] [place] [address], [facility] [phone] documented in this encounter Visit Diagnoses Not on filedocumented in this encounter Care Teams Asp Net Mvc Developer Relationship Specialty Start Date End Date Tee Chung DO [address] [place] [address] PCP - General Internal Medicine 04/10/16 documented as of this encounter
--- OUTSIDE RECORDS SUMMARY | 2024-04-29 16:16 | XMS_ITS | Encounter Summary ---
Author Organization [facility] Healthcare Address [address] [place] [address] Care Team Providers Care Cementer Helper Name Role Phone Juan Davis MD Unavailable [phone] No, Physician Primary Care Provider [phone] Sami Ruiz MD Primary Care Provider [phone] No, Physician Primary Care Provider [phone] Encounter Details Date Type Department Care Team (Late st Contact Info) Description 09/01/2020 Telephone [facility] [address] [place] [phone] Linda Adam, Social History Tobacco Use Types Packs/Day Years Used Date Smoking Tobacco: Every Day Alcohol Use Standard Drinks/Week Comments Yes 0 (1 standard drink = 0.6 oz pur e alcohol) Comments Unknown Sex and Gender Information Value Date Recorded Sex Assigned at Not on file Legal Sex Female 1:00 AM FLOORMAN Gender Identity Female 12/12/2020 6:03 PM CDT Sexual Orientation Not on file documented as of this encounter Plan of Treatment Not on file documented as of this encounter Visit Diagnoses Not on filedocumented in this encounter Care Teams Cementer Helper Relationship Specialty Start Date End Date No, Physician PCP - General 08/21/20 07/18/21 Sami Ruiz MD PCP - General Family Medicine 08/09/21 01/14/24 No, Physician PCP - General 01/15/24 Juan Davis MD [address] [facility] [address] [place] [address] Consulting Physician Rheumatology 07/23/18 documented as of this encounter
--- OUTSIDE RECORDS SUMMARY | 2024-04-29 16:16 | XMS_ITS | Referral Summary ---
Author Organization [facility] Address [address] [facility] [address] Care Team Providers Care Log Sorting Supervisor Name Role Phone Tee Chung DO Primary Care Provider [phone] Source Comments [facility],non-owned Affiliates and Associated Physician Practices is amultiple site organization consisting of ambulatory clinics and hospital sitesin [place], [place], [place] and [place]. This disclosure is being madepursuant to the Care Everywhere program and may not contain all information available regarding this patient. 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 SETTER Temperature 36.4 ??C (97.6 ??F) 09/27/2022 1:17 PM CD T Respiratory Rate 16 04/26/2018 2:26 PM IDENTIFICATION PRINTING MACHINE SETTER Oxygen Saturation 96% 05/18/2019 12:50 PM IDENTIFICATION PRINTING MACHINE SETTER Inhaled Oxygen Concentration - - Weight 58.8 kg (129 lb 9.6 oz) 09/27/2022 1:17 P M CDT Height 165.1 cm (5' 5 ) 09/27/2022 1:17 PM CDT Body Mass Index 21.57 09/27/2022 1:17 PM CDT Plan of Treatment Not on [...] Quantitative <15 NOT DETECTED <15 IU/mL [facility] Hepatitis C Virus RNA Log IU/mL <1.18 NOT DETECTED <1.18 Log IU/mL [facility] Comment: Please note: There are several scenarios [...] to the current Treatment Guidelines (J Hepatol, 4237-5618, ). Please correlate these findings with the patient's clinical history and any other diagnostic findings, including any evidence of liver dysfunction. See Note [facility] Comment: The analytical performance characteristics of this assay have been determined by [facility]. The modifications have not been cleared or approved by the FDA. This assay has been validated pursuant to the CLIA regulations and is used for clinical purposes. ?? This test was performed using the ROMA(R)AmpliPrep/ ROMA(R)TaqMan(R)HCV Test,v2.0. For more information on this test, go to: http://education.[employer]/faq/IQT75a7 (This link is being provided for informational/ educational purposes only.) Test Performed at: [facility] [address] ??[id number] SAAD HAMILTON DO,MPH 09/08/2015 2:07 PM CDT 09/08/2015 2:11 PM CDT Aniceto Barker MD LAB - CHEMISTRY ALFREDO YOUNGER [facility] from Last 3 Months or Most Recently Relevant to Health Maintenance Care Teams Log Sorting Supervisor Relationship Specialty Start Date End Date Tee Chung DO [address] [address] PCP - General Internal Medicine 04/10/16
--- OUTSIDE RECORDS SUMMARY | 2024-04-29 16:30 | XMS_ITS ---
Author Organization [facility] Address [address] [place] [address] Care Team Providers Care Warehouse Operations Associate Name Role Phone Parish Camp Primary Care Provider Dr. Leandro Neumann Unavailable [phone] Iris Carey Unavailable Unavailable REASON FOR VISIT EMG Study Results Encounters Encounter Location Date Provider Diagnosis [facility] [address] [place] [address] 07/03/2023 Leandro Curran Plan Of Treatment No Information Progress Notes * Nelia SARMIENTOyousifeDOB:[birth year] (72 yo F)Acc No.[id number]:07/03/2023 Patient:?JAYDAHARMEETGeovanna :1950???Age:72 Y???Sex:Female Address:[facility] [place] [address] * true * Date:? Generated for Printi ng/Fashirleyg/eTransmitting on:?04/29/2024 04:30 PM WATER USE INSPECTOR
--- OUTSIDE RECORDS SUMMARY | 2024-04-29 16:30 | XMS_ITS ---
Author Organization [facility] Address [address] [place] [address] Care Team Providers Care Keyboarding Teacher Name Role Phone Parish Camp Primary Care Provider UnavailDr. Leandro Dahl Unavailable [phone] Iris Carey Unavailable Unavailable [facility], Provider Unavailable Unavailab le Allergies Allergen (clinical drug ingredient) Drug/Non Drug Allergy documented on EMR Reaction Allergy Type Onset Date Status aspirin Aspirin hives Drug Allergy [facility] Encounter Medications Medication SIG (Take, Route, Frequency, Duration) Notes Start Date End Date Status Plavix 75 MG 1 tab(s) orally once a day Active Omeprazole 20 MG 1 cap(s) orally once a day Active Align 4 MG 1 cap(s) orally once a day Active Multivitamin - 1 tab(s) orally once a day Active Magnesium Citrate 200mg *Please review and pick correct strength-formulati on from BioCriticaspan options. If intended option is not shown, discontinue and re-order from Quick Search* Active HYDROcodone Bitartrate ER *Please review and pick correct strength-formulati on from BioCriticaspan options. If intended option is not shown, discontinue and re-order from Quick Search* Active SUMAtriptan Succinate 100 MG 1 tab(s) orally once Act nora Lidocaine 4 % 1 arpita applied topically 3 times a day Active Vitamin D3 *Please review a nd pick correct strength-formulati on from BioCriticaspan options. If intended option is not shown, discontinue and re-order from Quick Search* Active Calcium Citrate 300mg *Please review and pick correct strength-formulati on from Medispan options. If intended option is not shown, discontinue and re-order from Quick Search* Active Ondansetron 2 MG/ML DIRECTED INTRAVENOUSLY ONCE *Please review and pick correct strength-formulati on from Medispan options. If intended option is not shown, discontinue and re-order from Quick Search* Active Milk of Magnesia 1200 MG/15 ML 15 ML ORALLY 3 TIMES A DAY *Please review and pick correct strength-formulati on from Medispan options. If intended option is not shown, discontinue and re-order from Quick Search* Active Voltaren Arthritis Pain 1 % as directed applied topically 4 times a day Active Encounters Encounter Location Date Provider Diagnosis [facility] [place] [address] 09/20/2023 Provider ZZ-Migration Plan Of Treatment No Information Progress Notes * ALFREDITOAfua GAeDOB:[birth year] (73 yo F)Acc No.[id number]:09/20/2023 Patient:?Geovanna SARMIENTO Provider:?Provider Migration :1950???Age:72 Y???Sex:Female D ate:09/20/2023 [facility] [address] [facility] [facility] Pcp:Parish Camp Subjective: * Chief Complaints: * ???1. Multum To Medispan Con version Encounter. * Medical History:? * Medications:?Taking Milk of Magnesia 1200 MG/15 ML LIQUID 15 ML ORALLY 3 TIMES A DAY , Notes to Pharmacist: *Please review and pick correct strength-formulation from Medispan options. If intended option is not shown, discontinue and re-order from Quick Search*, Taking Ondansetron 2 MG/ML SOLUTION DIRECTED INTRAVENOUSLY ONCE , Notes to Pharmacist: *Please review and pick correct strength-formulation from Medispan options. If intended option is not shown, discontinue and re-order from Quick Search*, Taking Voltaren Arthritis Pain 1 % Gel as directed applied topically 4 times a day , Taking HYDROcodone Bitartrate ER , Notes to Pharmacist: *Please review and pick correct strength-formulation from Medispan options. If intended option is not shown, discontinue and re-order from Quick Search*, Taking Lidocaine 4 % Cream 1 arpita applied topically 3 times a day , Taking SUMAtriptan Succinate 100 MG Tablet 1 tab(s) orally once , Taking Calcium Citrate , Notes to Pharmacist: 300mg *Please review and pick correct strength-formulation from Medispan options. If intended option is not shown, discontinue and re-order from Quick Search*, Taking Vitamin D3 , Notes to Pharmacist: *Please review and pick correct strength-formulation from Medispan options. If intended option is not shown, discontinue and re-order from Quick Search*, Taking Magnesium Citrate , Notes to Pharmacist: 200mg *Please review and pick correct strength-formulation from Medispan options. If intended option is not shown, discontinue and re-order from Quick Search*, Taking Multivitamin - Tablet 1 tab(s) orally once a day , Taking Align 4 MG Capsule 1 cap(s) orally once a day , Taking Omeprazole 20 MG Capsule Delayed Release 1 cap(s) orally once a day , Taking Plavix 75 MG Tablet 1 tab(s) orally once a day * Allergies:?Aspirin: hives. Objective: * Vitals:? Assessment: Plan: * Treatment: * Billing Information: * Visit Code:? * Procedure Codes:? * Electronic signature of Julio C RUBIN-Migration on 04/29/2024 at 04:30 PM SEO CONSULTANT Sign off status: Pending * Provider:?Provider Migration Date:?09/19 Generated for Keysha monk/Isrrael/Elvis on:?04/29/2024 04:30 PM SEO CONSULTANT
--- OUTSIDE RECORDS SUMMARY | 2024-04-29 16:30 | XMS_ITS | CONTINUITY OF CARE DOCUMENT ---
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 Name Role Phone Humberto Platt MD Unavailable [phone] KEATON CORTES MD Unavailable [phone] KEATON CORTES MD Unavailable [phone] PROBLEMS Condition Status Date Provider Notes Rotator cuff tear, left active Anni meléndez MD Near syncope completed - Humberto Platt MD Dizziness and near syncope active Jayla Villaseñor Palpitations completed - Humberto Platt MD Peripheral edema active Humberto Platt MD Rheumatoid factor, positive active Humberto gunderson MD Tobacco abuse active Humberto Platt MD Hepatitis C - treated active Humberto Platt MD Shortness of breath active Shaggy Fragoso rg Gastritis active Humberto Platt MD Tricuspid regurgitation, mild active Humberto Platt MD Chest pain completed - Humberto Platt MD Snoring completed - Humberto Platt MD Fatigue active Humberto Platt MD Varicose veins active Humberto Platt MD Weakness active Humberto Platt MD Claudication Intermittent completed 04/24 - Humberto Platt MD Chronic venous hypertension with inflammation b/l active Humberto Platt MD Blueish discoloration, L hand active Shaggy Edward Goiter active Shaggy Cheyanne Hypoxia active Shaggy Edward 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 Shaggy Edward Migraine active Jayla Hildamariajose Breast swelling active Jayla Villaseñor Groin pain active Humberto Platt MD ENCOUNTERS Date Type Provider Location Encounter Diag nosis - In-person encounter Office Visit Humberto Platt MD [facility] - In-person encounter Office Visit Humberto Platt MD [facility] Groin pain - In-person encounter Office Visit Humberto Platt MD [facility] Dizziness and near syncopeMigraineBreast swelling - In-person encounter Office Visit Humberto Platt MD [facility] - In-person encounter Office Visit Humberto Platt MD [facility] - In-person encounter Office Visit Humberto Platt MD [facility] Shortness of breathBlueish discoloration, L handGoiterHypoxiaCompression of R common/external iliac vein S/P stent 05/2019 - In-person encounter Office Visit Humberto Platt MD [facility] Claudication IntermittentChronic venous hypertension with inflammation b/l - In-person encounter Office Visit Humberto Platt MD [facility] Dizziness and near syncopePalpitationsShortness of breathChest painVaricose veinsWeakness - In-person encounter Office Visit Humberto Platt MD [facility] Near syncopeGastritisSnoring - In-person encounter Office Visit Humberto Platt MD [facility] GastritisTricuspid regurgitation, mildFatigue - In-person encounter Office Visit Humberto Platt MD [facility] Dizziness and near syncopePeripheral edemaRheumatoid factor, positiveTobacco abuseHepatitis C - treated VITAL SIGNS Date Observation Value Provider Body Mass Index (Ratio) 23.79 kg/m2 Primo Langley blood pressure, diastolic 78 mm[Hg] Li nkLogic blood pressure, systolic 108 mm[Hg] Annetta kLogic blood pressure, diastolic 78 mm[Hg] Ky apryl Printer blood pressure, systolic 108 mm[Hg] Kyl ia Printer oxygen saturation, oximetry 96 % Cecilioblanca Printer pulse rate 72 /min Cecilioblanca Printer respiratory rate E&M 12 /min Balaji Regalado yesica weight E&M 143 [lb_av] [facility], cuff size regular Ky apryl Printer height E&M 65 [in_i] [facility] Body Mass Index (Ratio) 21.53 kg/m2 Lise granadoslesly Villaseñor weight E&M 129.4 [lb_av] Meron Miguel respiratory rate E&M 16 /min Meron akhtar blood pressure, systolic 117 mm[Hg] Angela Miguel blood pressure, diastolic 76 mm[Hg] St acy Lamont oxygen saturation, oximetry 97 % Meron Miguel pulse rate 64 /min Meron Miguel height E&M 65 [in_i] Meron Miguel Body Mass Index (Ratio) 21.80 kg/m2 Lise gabbi Villaseñor blood pressure, diastolic 73 mm[Hg] Ca therine Mary Esther blood pressure, systolic 107 mm[Hg] Cat herine Mary Esther oxygen saturation, oximetry 92 % Lata Mary Esther respiratory rate E&M 14 /min Gabriela deluna Abilio pulse rate 71 /min Lata Mary Esther weight E&M 131 [lb_av] Lata Mary Esther blood pressure, cuff size regular Vandana Camp height E&M 65 [in_i] Donovan michelle pulse rate, standing 88 /min Nataly Zavala orthostatic blood pr essure, standing, right arm, diastolic 80 Lizz Lucas orthostatic blood pr essure, standing, right arm, systolic 120 Lizz Lucas pulse rate, sitting, right 78 /min Maggie Abraham Lucas orthostatic blood pr essure, sitting, right arm, diastolic 80 Lizz Lucas orthostatic blood pr essure, sitting, right arm, systolic 118 Lizz Lucas pulse rate, supine, right 73 /min Colin Bree Lucas orthostatic blood pr essure, lying, right leg, diastolic 80 Lizz Lucas orthostatic blood pr essure, lying, right arm, systolic 130 Lizz Lucas height E&M 65 [in_i] Lizz eugene height in centimeters E&M 165.1 cm Colin Cheemaenson Body Mass Index (Ratio) 21.46 kg/m2 Lise gabbi Kasi blood pressure, diastolic 80 mm[Hg] Sh joanne Oliveira blood pressure, systolic 102 mm[Hg] She jordy Oliveira pulse rate 70 /min Danyel luong oxygen saturation, oximetry 97 % Danyel Oliveira blood pressure, resting No Renard Oliveira respiratory rate E&M 18 /min Tara Oliveira weight E&M 129 [lb_av] Danyel Medina luong height E&M 65 [in_i] Danyel luong Body Mass Index (Ratio) 20.30 kg/m2 Lise Villaseñor blood pressure, resting No Vimal ty [place] blood pressure, cuff size regular Kr isty Arron oxygen saturation, oximetry 98 % Gwen [place] respiratory rate E&M 18 /min Gwen [place] pulse rate 70 /min Gwen [place] blood pressure, diastolic 60 mm[Hg] Kr isty [place] blood pressure, systolic 100 mm[Hg] Kri sty [place] weight E&M 122 [lb_av] Gwen Arron height E&M 65 [in_i] Gwen Arron Body Mass Index (Ratio) 20.80 kg/m2 [facility] blood pressure, resting No Vimal ty Arron blood pressure, cuff size regular Kr isty [place] pulse rate 69 /min Gwen Arron oxygen saturation, oximetry 99 % Gwen [place] blood pressure, diastolic 70 mm[Hg] Kr isty Arron blood pressure, systolic 120 mm[Hg] Kri sty [place] respiratory rate E&M 19 /min Gwen Arron weight E&M 125 [lb_av] Gwen [place] height E&M 65 [in_i] Gwen [place] Body Mass Index (Ratio) 19.67 kg/m2 [facility] blood pressure, diastolic 60 mm[Hg] Kr isty Arron blood pressure, systolic 110 mm[Hg] Kri sty [place] pulse rate 64 /min Gwen Arron oxygen saturation, oximetry 98 % Gwen Cast respiratory rate E&M 17 /min Gwen Cast weight E&M 118.2 [lb_av] Gwen Cast height E&M 65 [in_i] Gwen Cast Body Mass Index (Ratio) 19.47 kg/m2 Humberto Platt MD blood pressure, cuff size regular Cy brittany Reeves blood pressure, diastolic 64 mm[Hg] Cy brittany Reeves blood pressure, systolic 104 mm[Hg] Elvia Reeves oxygen saturation, oximetry 92 % Kristen Reeves pulse rate 72 /min Kristen Campbel l respiratory rate E&M 16 /min Kristen Reeves weight E&M 117 [lb_av] Kristen Campbel l height E&M 65 [in_i] Kristen Campbel l blood pressure, diastolic 66 mm[Hg] Colin Zavala blood pressure, systolic 120 mm[Hg] Kaci Zavala pulse rate 67 /min Lizz eugene oxygen saturation, oximetry 99 % Lizz Zavala respiratory rate E&M 16 /min Nataly Zavala Body Mass Index (Ratio) 21.43 kg/m2 Mandi Zavala weight E&M 128.8 [lb_av] Lizz aguilar blood pressure, diastolic, left arm 70 mm [Hg] Amna Tushar blood pressure, systolic, left arm 102 mm [Hg] Amna Tushar blood pressure, diastolic, right arm 70 m m[Hg] Amna Tushar blood pressure, systolic, right arm 108 m m[Hg] Amna Tushar blood pressure, diastolic 70 mm[Hg] Mo nicole Tushar blood pressure, systolic 102 mm[Hg] Archana claudio Tushar pulse rate 63 /min Amna Finley oxygen saturation, oximetry 98 % Amna Finley respiratory rate E&M 16 /min Amna Finley Body Mass Index (Ratio) 20.07 kg/m2 Anna Finley weight E&M 120.6 [lb_av] Amna Finley blood pressure, diastolic, left arm 81 mm [Hg] Amna Finley blood pressure, systolic, left arm 109 mm [Hg] Amna Finley blood pressure, diastolic, right arm 81 m m[Hg] Amna Finley blood pressure, systolic, right arm 105 m m[Hg] Amna Finley blood pressure, diastolic 81 mm[Hg] Mo nicole Finley blood pressure, systolic 109 mm[Hg] Archana Finley pulse rate 60 /min Amna Finely oxygen saturation, oximetry 98 % Amna Finley respiratory rate E&M 16 /min Amna Finley Body Mass Index (Ratio) 20.20 kg/m2 Anna Finley height E&M 65 [in_i] Amna Finley weight E&M 121.4 [lb_av] Amna Finley ALLERGIES Allergy Name Onset Date Reaction Criticality Status CYMBALTA Low Criticality active ZOLOFT Low Criticality active SULINDAC Low Criticality active SAVELLA Low Criticality active RELAFEN Low Criticality active PLAQUENIL Low Criticality active ASA HIVES HIVES Low Criticality active RESULTS Date Observation Value Provider Reference Range Interpretation Location calcium, serum 9.9 mg/dL [facility] 8.6-10.4 Normal carbon dioxide, venous blood 28 mmol/L [facility] 20-32 Normal chloride, serum 101 mmol/L [facility] 98-110 Normal potassium, serum 4.2 mmol/L [facility] 3.5-5.3 Normal sodium, serum 134 mmol/L [facility] 135-146 Low urea nitrogen/creatini ne ratio, serum NOT APPLICABLE (calc) [facility] 6-22 Estimated Glomerular Filtration Rate (calc) 85 mL/min/{1.73_m 2} [facility] > OR = 60 Normal creatinine, serum 0.83 mg/dL [facility] 0.50-0.99 Normal urea nitrogen, blood 14 mg/dL [facility] 7-25 Normal blood glucose, random 86 mg/dL [facility] 65-99 Normal prothrombin time (patient) 11.7 s [facility] 9.1-12.0 international normalized ratio (INR) 1.1 [facility] 0.8-1.2 lipoprotein, beta, serum, point, quantitative, calculated 97 mg/dL [facility] 0-99 very low density lipoproteins 41 mg/dL [facility] 5-40 High HDL cholesterol, serum 64 mg/dL [facility] >39 triglyceride, serum, random 204 mg/dL [facility] 0-149 High cholesterol, serum 202 mg/dL [facility] 100-199 High calcium, serum 9.5 mg/dL [facility] 8.7-10.3 carbon dioxide, venous blood 25 mmol/L [facility] 20-29 chloride, serum 105 mmol/L [facility] 96-106 potassium, serum 4.3 mmol/L [facility] 3.5-5.2 sodium, serum 147 mmol/L [facility] 134-144 High urea nitrogen/creatini ne ratio, serum 9 [facility] 12-28 Low eGFR if 95 mL/min/{1.73_m 2} [facility] >59 eGFR if not 82 mL/min/{1.73_m 2} [facility] >59 creatinine, serum 0.76 mg/dL [facility] 0.57-1.00 urea nitrogen, blood 7 mg/dL [facility] 8-27 Low blood glucose, random 92 mg/dL [facility] 65-99 basophil count, absolute 0.0 x10E3/uL [facility] 0.0-0.2 Eosinophil Absolute Count 0.2 X10E3/UL [facility] 0.0-0.4 monocyte count, blood, automated 0.3 X10E3/UL [facility] 0.1-0.9 lymphocyte count, blood, automated 2.2 X10E3/UL [facility] 0.7-3.1 Absolute Neutrophils 1.8 X10E3/UL [facility] 1.4-7.0 basophils as percent of blood leukocytes 0 % [facility] Not Estab. eosinophils as percent of blood leukocytes 3 % [facility] Not Estab. monocytes as percent of blood leukocytes 7 % [facility] Not Estab. lymphocytes as percent of blood leukocytes 50 % [facility] Not Estab. neutrophils as percent of blood leukocytes 40 % [facility] Not Estab. platelet count 190 X10E3/UL [facility] 418-374 1200/12/ 27 red blood cell distribution width 13.2 % [facility] 12.3-15.4 mean corpuscular hemoglobin concentration, RBC 34.0 G/DL [facility] 31.5-35.7 mean corpuscular hemoglobin, RBC 33.8 pg [facility] 26.6-33.0 High mean corpuscular volume, RBC 100 fL [facility] 79-97 High hematocrit, blood 41.5 % [facility] 34.0-46.6 hemoglobin, blood 14.1 g/dL [facility] 11.1-15.9 erythrocyte (RBC) count 4.17 X10E6/UL [facility] 3.77-5.28 leukocyte count, blood 4.5 X10E3/UL [facility] 3.4-10.8 HISTORY OF MEDICATION USE Medication Status Instructions Dates Provider Indications Com mikayla Henson Arthritis Pain 1% gel completed once a day Balaji Martinez Zofran 2 mg tablet completed 1 tablet ever y six hours as needed as directed Balaji Martinez omeprazole 20 mg capsule,delayed release(DR/EC) active once a day Balaji Martinez sumatriptan succinate 100 mg tablet active take 1/2 tab prn Balaji Martinez sumatriptan succinate 50 mg tablet completed - Balaji Juan bupropion HCl (smoking deter) 150 mg tablet extended release 12 hr completed - Balaji Juan clopidogrel 75 mg tablet active TAKE 1 TABLET BY MOUTH EVERY DAY Bhupendra Del Rio Pepcid 20 mg tablet completed - Balaji Juan midodrine 5 mg tablet completed 1 tablet by mouth twice a day - Humberto Platt MD FLUDROCORTISONE ACETATE 0.1 MG ORAL TABLET completed Take one tablet twice a day - Humberto Platt MD Pepcid 20 mg tablet completed Take 1 tablet by mouth once a day - Ceciliocelineblanca Martinez HAIR SKIN AND NAILS FORMULA TABS completed Take 1 tablet by mouth once a day - Balaji Martinez sumatriptan succinate 100 mg tablet completed TAKE 1 TABLET BY MOUTH AT ONSET OF MIGRAINE. AUGUST REPEAT 1 TIME IN 2 HOURS - Balaji Martinez #9, 30 days supply, Prescribed by RADHA ENRIQUEZ, Filled 07/14/2020 OMEPRAZOLE 20 MG ORAL CAPSULE DELAYED RELEASE completed take one tablet by mouth once daily - Danyel Oliveira #30, 30 days supply, Prescribed by JOSEPH NEVES, Filled 07/22/2020 clopidogrel 75 mg tablet completed Take 1 tablet by mouth once a day - Laura Laurita PLAVIX 75 MG ORAL TABLET completed ONE TAB. DAILY - Nicolás Payne OMEPRAZOLE 20 MG ORAL TABLET DELAYED RELEASE DISINTEGRATING completed take 1 tab twice a day - Gwen Heller CHANTIX 1 MG ORAL TABLET completed one tablet once daily - Kristen Reeves PRILOSEC 20 MG ORAL CAPSULE DELAYED RELEASE completed one tablet twice daily - Kristen Reeves lidocaine 5% ointment completed once a day - Balaji Martinez lidocaine 5% adhesive patch,medicated active as needed Nicolás Kaur hydrocodone-acetam inophen 7.5-325 mg tablet active 0.5 tablet twice a day Nicolás Kaur DYAZIDE 37.5-25 MG ORAL CAPSULE completed 1/2 tab daily prn - Kristen Reeves Voltaren Arthritis Pain 1% gel completed once a day - Balaji Martinez Zofran 4 mg tablet completed 1 tablet ever y six hours as needed - Balaji Martinez diazepam 5 mg tablet completed 1 tablet twice a day as needed - Balaji Martinez MULTIVITAMIN ADULTS 50+ TABS active once a day Nicolás Kaur VITAMIN D3 800 UNIT ORAL TABLET active Gwen Heller Calcium 600 600 mg calcium (1,500 mg) tablet active 1 tablet twice a day Nicolás Kaur Align (B.infantis) 4 mg capsule completed once a day - Balaji Martinez PROAIR HFA 108 (90 BASE) MCG/ACT INHALATION AEROSOL SOLUTION completed 2 puffs every 4 hours prn - Danyel Oliveira TobraDex 0.3-0.1% ointment completed 2 drop four times a day - Balaji Martinez betamethasone dipropionate 0.05% cream completed as needed - Balaji Martinez KETOROLAC TROMETHAMINE 30 MG/ML INJECTION SOLUTION completed 1ml im every 6 hours as needed for migraines last resort - Kristen Reeves REGLAN 10 MG ORAL TABLET completed one tablet on onset of a migraine - Gwen Heller Imitrex 100 mg tablet completed once a day - Balaji Martinez TOPAMAX 25 MG ORAL TABLET completed one tablet twice daily - Kristen Reeves SOCIAL HISTORY Date Observation Value Provider smoking/tobacco cess ation, patient education and counseling yes Humberto Platt MD smoking, date started 1972 Humberto Platt MD smoking history, tot al pack/year 48 Humberto Platt MD smoking history, tot al pack/day 1/2 Humberto Platt MD cigarette use yes Humberto Platt MD smoking status Current every day smoker G tanmay Platt MD social history E&M S moking History: P atient currently smokes every day. P atient has been counseled to quit. Humberto Platt MD social history reviewed E&M carrie ewed - no changes required Humberto Platt MD smoking/tobacco cess ation, patient education and counseling yes Meron Miguel smoking, date started 1972 Meron Miguel smoking history, tot al pack/year 48 Meron Miguel smoking history, tot al pack/day 1/2 Meron Miguel cigarette use yes Meron Miguel smoking status Current every day smoker Sia low Lamont social history reviewed E&M revrichard ewed - no changes required Humberto Platt MD social history E&M S moking History: P atient currently smokes every day. P atient has been counseled to quit. Humberto Platt MD social history reviewed E&M carrie ewed - no changes required Humberto Platt MD smoking/tobacco cess ation, patient education and counseling yes Danyel Oliveira smoking, date started 1972 Tosha lOiveira smoking history, tot al pack/year 48 Danyel Oliveira smoking history, tot al pack/day 1/2 Danyel Oliveira cigarette use yes Danyel foster smoking status Current every day smoker S jerica Oliveira social history reviewed E&M revi ewed - no changes required Jayla Villaseñor social history reviewed E&M revi ewed - no changes required Shaggy Edward smoking/tobacco cess ation, patient education and counseling yes Gwen Castby smoking, date started 1972 Gwen Castby smoking history, tot al pack/year 48 Gwen Castby smoking history, tot al pack/day 1/2 Gwen Castby cigarette use yes Gwen Castby smoking status Current every day smoker Merrill Heller smoking history, tot al pack/year 48 Nicolás Humphriesbruce smoking history, tot al pack/year 47 Noelle Mcphersonbrook smoking history, tot al pack/year 47 Noelle Mcphersonbrook social history reviewed E&M revi ewed - no changes required Humberto Platt MD smoking/tobacco cess ation, patient education and counseling yes Gwen Castby smoking, date started 1972 Gwen Castby smoking history, tot al pack/day 1/2 Gwen Peoria cigarette use yes Gwen Castby smoking status Current every day smoker Merrill Heller social history reviewed E&M revi ewed - no changes required Humberto Platt MD smoking/tobacco cess ation, patient education and counseling yes Kristen Reeves smoking, date started 1972 Parveen Reeves smoking history, tot al pack/day 1/2 Kristen Reeves cigarette use yes Kristen espinal smoking status Current every day smoker Shailesh Reeves social history reviewed E&M revi ewed - no changes required Humberto Platt MD smoking/tobacco cess ation, patient education and counseling yes Lizz Zavala smoking, date started 1972 Mirlande Zavala smoking history, tot al pack/day 1/2 Lizz Zavala cigarette use yes Lizz aguilar smoking status Current every day smoker Maggie Zavala social history reviewed E&M revi ewed - no changes required Humberto Platt MD smoking/tobacco cess ation, patient education and counseling yes Amna Finley smoking, date started 1972 Kelly Finley smoking history, tot al pack/day 1/2 Amna Finley cigarette use yes Amna Finley smoking status Current every day smoker Maggie Finley social history E&M Smoking Histo ry: P atient currently smokes every day. P atient has been counseled to quit. Humberto Platt MD smoking/tobacco cess ation, patient education and counseling yes Humberto Platt MD social history reviewed E&M revi ewed - no changes required Humberto Platt MD smoking, date started 1972 Kelly Finley smoking history, tot al pack/day 1/2 Amna Finley cigarette use yes Amna Finley smoking status Current every day smoker Maggie Finley FAMILY HISTORY Family Member Condition Father Family History of Co ronary Artery Disease: Father Family History of Ao rtic Aneurysm: Mother Family History of Hy pertension: INSURANCE PROVIDERS Payer name Policy type / Coverage type [place] [employer] party ID A[employer] insurance [email or web address] [id number] [place] MEDICARE Medicare [id number] ADVANCE DIRECTIVES Name Date DISCUSSED - NO DECISION MADE TREATMENT PLAN Date Name Performer [id number],S, S CHRISLY ENCOURAGED TO STOP SMOKING; SMOKING CESSATION TECHNIQUES DISCUSSED. Jayla Villaseñor [id number],C,P t complains of pain in both groins, she is concerned that it is related to venous iliac stents. Will obtain venous duplex and echo Jayla Villaseñor [id number],C,P t has multiple non cardiac problemns inclduing back pain, rotator cuff tear, breast swelling, constipation. She is now scheduled for mammogram with PCP. Jayla Villaseñor [id number],C, S till has some dizziness. However reports midodrine was stopped due to hypertension. Jayla Villaseñor [id number],C, Will see Dr. Tolliver for migraine, Dr. Ebenezer Olmos for rheumatology, and she will be seen at neurosurgery clinic for her back pain. Jayla Calvillomellisa [id number],C, She has chronic venous insufficiency, but does not want Venaseal at this time. Jayla Stevensmariajose [id number],C,P t has multiple non cardiac problemns inclduing back pain, rotator cuff tear, breast swelling, constipation. Jayla Stevensmariajose [id number],S, S TRONGLY ENCOURAGED TO STOP SMOKING; SMOKING CESSATION TECHNIQUES DISCUSSED. Humberto Platt MD [id number],C,A pparenty had L upper ex rotator cuff tear, may or may not surgery, will need to come off plavix if she needs it Anni Rodriguez MD [id number],S,B ilateral illiac vein stenting, residual leg edema. Will venaseal after discusses with GV per his note Anni Rodriguez MD [id number],B,T he pt did not take the Florinef b/c she is undergoing workup for renal insufficiency. Was started on Midodrine with very good improvement of her dizziness. Myoview scan was normal. Jayla Villaseñor [id number],C,No complaints of excessive fatigue Jayla Villaseñor [id number],C, Will obtain venous duplex, as the last test was done in 2019. Based on the results will schedule Venaseal. Jayla Villaseñor [id number],C, She complains of some tightness in the abdomen and in the chest. Will monitor the tightness; if it persists, will schedule a cardiac cath. Jayla Villaseñor [id number],C,T he pt did not take the Florinef b/c she is undergoing workup for renal insufficiency. Was started on Midodrine with very good improvement of her dizziness. Myoview scan was normal. She complains of some tightness in the abdomen and in the chest. Will monitor the tightness; if it persists, will schedule a cardiac cath. Jayla Kasi Cardiology:resolved [facility] Thad altamirano Card[facility]: Still ex periencing some BLE edema, pt will follow up for venaseal procedure following her back workup Parish Langley [facility]iology:is planne d to undergo epidural for back/neck pain and was asked to stop plavix. Given she had hx of illiac vein stent, she is cleared to stop taking plavix indefintiely. [facility] L[facility]: S EMILY ENCOURAGED TO STOP SMOKING; [facility]:will f/u regarding venaseal after back workup [facility] L[facility]: S TRONGLY ENCOURAGED TO STOP SMOKING; SMOKING CESSATION TECHNIQUES DISCUSSED. Jayla Villaseñor Cardiology:Pt compla ins of pain in both groins, she is concerned that it is related to venous iliac stents. Will obtain venous duplex and echo Jayla Kasi Cardiology:Pt has mu ltiple non cardiac problemns inclduing back pain, rotator cuff tear, breast swelling, constipation. She is now scheduled for mammogram with PCP. Jayla Villaseñor Cardiology: S till has some dizziness. However reports midodrine was stopped due to hypertension. Jayla Villaseñor Cardiology: Will see Dr. Tolliver for migraine, Dr. Ebenezer Olmos for rheumatology, and she will be seen at neurosurgery clinic for her back pain. Jayla Kasi Cardiology: She has chronic venous insufficiency, but does not want Venaseal at this time. Jayla Kasi Cardiology:Pt has mu ltiple non cardiac problemns inclduing back pain, rotator cuff tear, breast swelling, constipation. Jayla Kasi Cardiology: S TRONGLY ENCOURAGED TO STOP SMOKING; SMOKING CESSATION TECHNIQUES DISCUSSED. Humberto Platt MD Telehealth:Kareem had L upper ex rotator cuff tear, may or may not surgery, will need to come off plavix if she needs it Anni Rodriguez MD Telehealth:Bilateral illiac vein stenting, residual leg edema. Will venaseal after discusses with GV per his note Anni Rodriguez MD Cardiology:The pt di d not take the Florinef b/c she is undergoing workup for renal insufficiency. Was started on Midodrine with very good improvement of her dizziness. Myoview scan was normal. Jayla Kasi Cardiology:No complaints of exce ssive fatigue Jayla Kasi Cardiology: Will obt ain venous duplex, as the last test was done in 2019. Based on the results will schedule Venaseal. Jayla Kasi Cardiology: She comp lains of some tightness in the abdomen and in the chest. Will monitor the tightness; if it persists, will schedule a cardiac cath. Jayla Kasi Cardiology:The pt di d not take the Florinef b/c she is undergoing workup for renal insufficiency. Was started on Midodrine with very good improvement of her dizziness. Myoview scan was normal. She complains of some tightness in the abdomen and in the chest. Will monitor the tightness; if it persists, will schedule a cardiac cath. Jayla Villaseñor Cardiology Jayla sky Cardiology: CT showe d centrilobular emphysema, no pulmonary embolism. Jayla Villaseñor Cardiology: CT showe d centrilobular emphysema, no pulmonary embolism. Jayla Villaseñor Cardiology:CT showed centrilobular emphysema, no pulmonary embolism. Pt complained of extreme weakness, went to ER and was told she had orthostatic hypotension, was treated with fluids. Echo showed moderate mitral regurgitation. Will start Florinef 0.1 mg 2x a day. Will reschedule myoview and f/u in a month. Jayla Stevensmariajose Cardiology:Venous an d arterial duplexes of the upper extremeties showed no abnormalities. Jayla Villaseñor Cardiology:She was r ecently diagnosed with a goiter that is going to be evaluated at [facility]. Shaggy Formerly Named [facility] Cardiology:She chron ic venous insufficiency and is S/P R iliac vein stenting last year. Shaggy Formerly Named [facility] Cardiology:She chron ic venous insufficiency and is S/P R iliac vein stenting last year. We will consider venous ablation after her current workup. Shaggy Formerly Named [facility] Cardiology:Developed blueish discoloration of the L hand. We will schedule upper extremity arterial and venous duplexes. Shaggy Formerly Named [facility] Cardiology:She repor ts she developed an episode of SOB while sitting down and noted her O2 sat was down in the 80's. Also developed blueish discoloration of the L hand. We will schedule stress myoview, echo, and CT angio PE protocol. Shaggy Formerly Named [facility] Cardiology:She repor ts she developed an episode of SOB while sitting down and noted her O2 sat was down in the 80's. Also developed blueish discoloration of the L hand. We will schedule stress myoview, echo and CT angio PE protocol. Shaggy Formerly Named [facility] Cardiology:Venous du plex showed venous insufficiency of the GSV bilaterally. Continues to have significant leg swelling and heaviness, worse in the left leg (CEAP C3). She has been using compression stockings with only partial relief. She would like to proceed with venogram with IVUS imaging to evaluate May-Thurner. Afterwards, we will consider venous ablation. Shaggy Formerly Named [facility] Cardiology:Venous du plex showed venous insufficiency of the GSV bilaterally. Continues to have significant leg swelling and heaviness, worse in the left leg (CEAP C3). She has been using compression stockings with only partial relief. She would like to proceed with venogram with IVUS imaging to evaluate May-Thurner. Afterwards, we will consider venous ablation. CEAP Clinical Classification C 0 : No visible or palpable signs of venous disease C 1 : Telangiectasies or reticular veins C 2 : Varicose veins C 3 : Edema C 4a: Pigmentation or eczema C 4b: Lipodermatosclerosis or atrophie oumar C 5 : Healed venous ulcer C 6 : Active venous ulcer Shaggy Edward Cardiology Shaggy Fragoso Cardiology follow up :She is suffering from an undiagnosed muscle atrophy condition, evaluated at [facility]. Humberto Platt MD Cardiology follow up :Orders: C omplete Echo (CPT-03536) Humberto Platt MD Cardiology follow up :Orders: A rterial Duplex Bi-Lower EX (CPT-84280) Humberto Platt MD Cardiology follow up :She has varicose veins and leg edema associated with heaviness, worsening throughout the day. Orders: C omplete Echo (CPT-87262) V enous Doppler Bilateral LE - Reflux (CPT-63521) Humberto Platt MD Cardiology:PFT's showed minimal COPD. Humberto Platt MD Cardiology:Myoview scan was nega tive for ischemia. Humberto Platt MD Cardiology:Per Dr. Neves. Humberto Platt MD Cardiology:Carotid d uplex was normal. Telesentry was essentially normal. [facility] Cardiology: 6 Echo: Normal appearing tricuspid valve leaflets. There is mild tricuspid regurgitation. IVC is normal in size with normal respiratory response. Estimated peak pulmonary artery systolic pressure is 27. [facility] Cardiology:STRONGLY ENCOURAGED TO STOP SMOKING; SMOKING CESSATION TECHNIQUES DISCUSSED. [facility] Cardiology:Telesentry was essent ially normal. [facility] Cardiology:Telesentry was essent ially normal. [facility] Cardiology:Venous du plex was negative for DVT or venous insufficiency. [facility] Cardiology:Pt compla ins of a dry mouth when she sleeps, snoring, morning headaches, frequent awakenings and fatigue. Will obtain a home sleep study. Shaggy Formerly Named [facility] Cardiology:Pt compla ins of a dry mouth when she sleeps, snoring, morning headaches, frequent awakenings and fatigue. Will obtain a home sleep study. [facility] Cardiology:Pt compla ins of a feeling of acidity in her mouth and a sensation of chest discomfort. I recommend a GI consult. [facility] Cardiology:Pt compla ins of SOB. Will obtain myoview scan and PFT's. [facility] Cardiology:Pt compla ins of SOB, a feeling of acidity in her mouth and a sensation of chest discomfort. Will obtain myoview scan. In addition, I recommend a GI consult. [facility] Cardiology:STRONGLY ENCOURAGED TO STOP SMOKING; SMOKING CESSATION TECHNIQUES DISCUSSED. Humberto Platt MD Cardiology:Orders: V enous Doppler Bilateral LE - Standing (CPT-07631) Humberto Platt MD Cardiology:She has r ecurrent dizziness and palpitations. Humberto Platt MD Cardiology:She has r ecurrent dizziness and palpitations. Humberto Platt MD Cardiology:This is a 65 years old female who presents with SYNCOPE EVALUATION. The symptoms began 1 week ago. The patient complains of near syncope, palpitations and dizziness, but denies syncope. Associated symptoms include palpitations and lightheadedness. The patient describes the following precipitating factors: none. The symptoms occur once. Previous evaluation to date includes: echocardiogram. We plan to perform event monitor, echocardiogram and carotid duplex. Humberto Platt MD Date Name Venous Doppler Bilat eral LE - Reflux Complete Echo RPM (remote patient monitoring) Venous Doppler Bilat eral LE - Reflux Stress Exercise Card iolite BASIC METABOLIC PANE L W/EGFR CT Angio Chest (PE P rotocol) Arterial Duplex Uppe r Extremity Bilateral Venous Doppler Bilat eral UE Stress Regadenoson Complete Echo PROTHROMBIN TIME WIT H INR LIPID PANEL CBC (INCLUDES DIFF/P LT) BASIC METABOLIC PANE L W/EGFR Arterial Duplex Bi-L ower EX Venous Doppler Bilat eral LE - Reflux Complete Echo DLCO - 17798 FRC - 02501 FVC - 81798 STR - Adenosine Sleep Study Home Mobile Cardiac Tele Venous Doppler Bilat eral LE - Standing Carotid Duplex Bilat eral Complete Echo HISTORY OF PROCEDURES Procedure Date Procedure Name Provider Procedure Notes S tatus Complex e/m visit add on Humberto Platt MD completed EKG Humberto Platt MD completed EKG Humberto Platt MD completed EKG Humberto Platt MD completed EKG Humberto Platt MD completed EKG Humberto Platt MD completed SNOMED-CT: 933404400 Smoking Cessation Counseling Humberto Platt MD completed SNOMED-CT: 589046941 474610 Current Medications Documented Humberto Platt MD completed Stress EKG Jose Miguel Randle MD complet ed Regadenoson, 4 units Humberto Platt MD completed Cardiolite, 2 units Humberto Platt MD c ompleted SPECT Images Jose Miguel Randle MD compl eted FVC - 71976 Humberto Platt MD completed FRC - 16426 Humberto Platt MD completed DLCO - 68641 Humberto Platt MD complete d SNOMED-CT: 178780739 Smoking Cessation Counseling Humberto Platt MD completed SNOMED-CT: 452352975 976475 Current Medications Documented Humberto Platt MD completed Event Monitor Humberto Platt MD complet ed SNOMED-CT: 986042333 Smoking Cessation Counseling Humberto Platt MD completed EKG Humberto Platt MD completed SNOMED-CT: 465893755 790216 Current Medications Documented Humberto Platt MD completed
--- OUTSIDE RECORDS SUMMARY | 2024-04-29 16:30 | XMS_ITS ---
Author Organization [facility] Address [address] [place] [address] Care Team Providers Care Grain Elevator Agent Name Role Phone Parish Camp Primary Care Provider Dr. Leandro Neumann Unavailable [phone] Iris Carey Unavailable Unavailable REASON FOR VISIT Notes Encounters Encounter Location Date Provider Diagnosis [facility] [address] [place] [address] 07/02/2023 Leandro Curran Plan Of Treatment No Information Progress Notes * Afua SARMIENTOeDOB:[birth year] (72 yo F)Acc No.[id number]:07/02/2023 Patient:?JAYDAHARMEETGeovanna :1950???Age:72 Y???Sex:Female Address:[facility] [place] [place] [address] * true * Date:? Generated for Printi ng/Fashirleyg/eTransmitting on:?04/29/2024 04:30 PM [employer]
--- OUTSIDE RECORDS SUMMARY | 2024-04-29 16:31 | XMS_ITS | Patient Health Record ---
Author Organization [facility] Address [address] [place] [address] Care Team Providers Care Parachute Folder Name Role Phone Parish Camp Primary Care Provider UnavailDr. Leandro Dahl Unavailable [phone] Iris Carey Unavailable Unavailable [employer], Provider Unavailable Unavailab le Allergies Allergen (clinical drug ingredient) Drug/Non Drug Allergy documented on EMR Reaction Allergy Type Onset Date Status aspirin Aspirin hives Drug Allergy Active Reason For Referral No Information Medications Medication SIG (Take, Route, Frequency, Duration) Notes Start Date End Date Status OMEPRAZOLE 20 mg 1 cap(s) orally once a day Active VITAMIN D3 Active MAGNESIUM CITRATE 200mg Ac tive MULTIVITAMIN Multiple Vitamins 1 tab(s) orally once a day Active ALIGN 4 mg 1 cap(s) orally once a day Active HYDROCODONE Active LIDOCAINE TOPICAL 4% 1 arpita applied topically 3 times a day Active SUMATRIPTAN 100 mg 1 tab(s) orally once Active CALCIUM CITRATE 300mg Acti ve Plavix 75 MG 1 tab(s) orally once a day Active Omeprazole 20 MG 1 cap(s) orally once a day Active VOLTAREN ARTHRITIS PAIN 1% as directed applied topically 4 times a day Active Align 4 MG 1 cap(s) orally once a day Active Multivitamin - 1 tab(s) orally once a day Active MILK OF MAGNESIA 1200 mg/15 mL 15 mL orally 3 times a day Active ONDANSETRON 2 mg/mL as directed intravenously once Active Magnesium Citrate 200mg *Please review and pick correct strength-formulati on from Medispan options. If intended option is not shown, discontinue and re-order from Quick Search* Active SUMAtriptan Succinate 100 MG 1 tab(s) orally once Act nora Lidocaine 4 % 1 arpita applied topically 3 times a day Active Vitamin D3 *Please review a nd pick correct strength-formulati on from Medispan options. [...] discontinue and re-order from Quick Search* Active PLAVIX 75 mg 1 tab(s) orally once a day Active HYDROcodone Bitartrate ER *Please review and pick correct strength-formulati on from Medispan options. If intended option is not shown, discontinue and re-order from Quick Search* Active Voltaren Arthritis Pain 1 % as directed applied topically 4 times a day Active Social History Tobacco Use: Social History Observation Description Date Details (start date - stop date) Current Smoker NA - NA Smoking Smart Form: Question Answer Notes Are you a: current smoker Problems Problem Type SNOMED Code ICD Code Onset Dates Problem Status W/U Status Risk Notes Problem Degeneration of cervical intervertebral disc (76307593) Other cervical disc degeneration, unspecified cervical region (M50.30) Active confirmed Problem Cervicalgia (64228350) Cervicalgia (M54.2) Active confirmed Problem Pain in limb (99297170) Pain in unspecified limb (M79.609) Active confirmed Problem Paresthesia (finding) (74064057) Paresthesia of skin (R20.2) Active confirmed Encounters Encounter Location Date Provider Diagnosis [facility] [address] [place] [address] 09/20/2023 Provider ZZ[facility]Migration [facility] [address] [place] [address] 07/02/2023 Leandro Curran Other cervical disc degeneration, unspecified cervical region M50.30 ; Cervicalgia M54.2 ; Pain in unspecified limb M79.609 and Paresthesia of skin R20.2 [facility] [address] [place] [address] 07/02/2023 Leandro Curran [facility] [address] [place] [address] 07/03/2023 Leandro Curran Assessments Encounter Date Diagnosis (ICD Code) Assessment Notes Treatment Notes Treatment Clinical Notes Section Notes 07/02/2023 Other cervical disc degeneration, unspecified cervical region (ICD-10 - M50.30) 07/02/2023 Cervicalgia (ICD-10 - M54.2) 07/02/2023 Pain in unspecified limb (ICD-10 - M79.609) 07/02/2023 Paresthesia of skin (ICD-10 - R20.2) Plan Of Treatment No Information Insurance Providers Payer Name Payer Address Payer Phone Subscriber Number Group Number Insured Name Patient Relationship to Insured Coverage Start Date Coverage End Date [employer] (Medicare) Attention Claims [address] [facility] [place] [phone] [id number] Geovanna Sarmiento Self - patient is the insured AARP Medicare Advantage from [facility] [address] [address] [place] [address] [id number] Geovanna Sarmiento Self - patient is the insured
--- OUTSIDE RECORDS SUMMARY | 2024-04-29 16:31 | XMS_ITS | Continuity of Care Document ---
Author Organization [facility] Address [address] [place] [address] [place] [address] Phone Care Team Providers Care Nursing Secretary Name Role Phone Joseph TORRES, Sami Unavailable [...] needed - Active PRN for yeast infection Plavix 75 mg tablet take 1 tablet by oral route every day 75 MG - Active omeprazole 20 mg capsule,delayed release take 1 capsule by oral route BID - Active Imitrex 100 mg tablet take 1 tablet by oral route as needed 100 MG - Active take 1/2 tab orally at onset of headache, august repeat x 1/2 in two hours, max 100 mg/24 hours Valium 5 mg tablet take 1 tablet by oral route 2 times every day as needed 5 MG - Active Procedures Procedure Date OFFICE/OUTPATIENT VISIT, EST OFFICE/OUTPATIENT VISIT, EST OFFICE/OUTPATIENT VISIT, EST PPPS, subseq visit OFFICE/OUTPATIENT VISIT, NEW Advance Directives Directive Yes / No Effective Date File Name No Information Encounters Encounter Description Practice Location Reason(s) For Visit Diagnoses Date Provider Providers Copied on Encounter [facility], [address], [address], [place] tel:[phone] [facility] No Information 2 Joseph Ferrari [address], [place], [place], [address] , [place]. tel:[phone] OFFICE/OUTPA TIENT VISIT, [facility], [address], [place], [place], [address], [place] tel:[phone] [facility] chronic pain1 (chief complaint) Chronic pain syndromeOther spondylosis, lumbar region 2 Joseph Ferrari [address], [place], [place], [address] , [place]. tel:[phone] OFFICE/OUTPA TIENT VISIT, [facility], [address], [address], [place] tel:[phone] [facility] pain (chief complaint) Chronic pain syndromeOther spondylosis, lumbar region 2 Joseph Gallardo. [address], [place], [place], [address] , [place]. tel:[phone] OFFICE/OUTPA TIENT VISIT, [facility], [address], [place], [place], [address], [place] tel:[phone] [facility] chronic pain1 (chief complaint) urinary urgencny1 (chief complaint) Chronic pain syndromeOveractive bladder 2 Joseph Gallardo. [address], [place], [place], [address] , [place]. tel:[phone] OFFICE/OUTPA TIENT VISIT, [facility], [address], [place], [place], [address], [place] tel:[phone] [facility] PHysical (chief complaint) Encounter for general adult medical exam w abnormal findingsFibromyalgi aGERD w/o esophagitisOsteopor osisVenous insufficiencyMigrai ne 2 Joseph Gallardo. [address], [place], [place], [address] , [place]. tel:[phone] Family History Family Member Type Diagnosis Age At Onset Father Problem 84 for some type of ble eding but not sure Mother Problem parkinson, still alive Brother Problem Alive and well Payers Payer name Insurance type Covered constitution party ID Authoriza tion(s) No Information Social [...] Pt wants UA test. Pt just saw POT HOLDER BINDER yesterday but she did not do pelvic exam Pt had breast exam done and she will do mammo soon. Pt also has urinary urgency. Pt states that she was told that she dose NOT have DM. Pt also denies any fever, chill, flank pain. PHysical Pt needs annual physical Pt has not seen PCP for 1.5 years. Pt moved here from [place] two years ago. Pt has history of [...] Pt rarely takes above meds. Pt sees event set up specialist in [facility] for left shoulder pain who referred [...]
== END 2024-04-27 11:07 | disposition home or self-care (01) ==
PROVIDERS: Emergency Provider Emergency Medicine; PCP Nurse Practitioner
DX: J10.1 Influenza due to other identified influenza virus with other respiratory manifestations (principal); K21.9 Gastro-esophageal reflux disease without esophagitis; Z86.19 Personal history of other infectious and parasitic diseases; Z20.822 Contact with and (suspected) exposure to COVID-19
CPT/HCPCS: 36415; 71046; 80053; 83880; 84484; 85025; 85610; 85730; 87637; 93005; 99284

== ENCOUNTER 2024-05-19 09:35 | Outpatient (CLI) | payer MEDICARE, SELFPAY ==
--- NOTE | ~2024-05-19 | XR_ITS ---
Clinical Indication: Pneumonia PA and lateral views of the chest: Comparison: 04/27/2024 Findings: There is focal airspace opacities the right lung base on the frontal projection. Left lung clear.. Cardiomediastinal silhouette is within normal limits. Bones and soft tissues are unremarkabl e. Impression: Probable focal right basilar pneumonia. Reviewed, dictated and finalized at location . 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
--- OUTSIDE RECORDS SUMMARY | 2024-05-19 10:25 | XMS_ITS | Encounter Summary ---
Author Organization [facility] Address [address] [place] [address] Care Team Providers Care Mud Grinder Name Role Phone SheldonTee Primary Care Provider [phone] Encounter Details Date Type Department Care Team (Late st Contact Info) Description 07/17/2018 Lab Requisition [facility] Care DermPath Lab [address] [place] [address] Serge Hawley MD [address] [address] [address] [place] [address] Social History Tobacco Use Types Packs/Day Years [...] 12:00 AM CDT) Case Report Dermatopathology Report Case: [id number] Authorizing Provider: Serge Hawley MD Collected: 07/16/2018 12:00 AM Pathologist: Payal Lucero MD Received: 07/17/2018 11:34 AM Specimen: Skin, left upper arm 1:58 PM [facility] DERMATOPATHOLOGY [facility]ORATORY Final Diagnosis Specimen A. SKIN, left upper arm: EPIDERMOID CYST WITH HYPERTROPHIC SCAR (L72.0) (L91.0) NOT PRESENT AT MARGIN (see microscopic description) 1:58 PM [facility] DERMATOPATHOLOGY [facility] Clinical History Lesion. Check margins. 1:58 PM [facility]MAT[facility]ATH[facility]Y [facility] Gross Description Specimen A: Received is one formalin filled container labeled with the patient's name and designated left upper arm. The specimen consists of a non-oriented ellipse of skin measuring [id number]. The epidermal surface consists of a centrally located [id number] erosion. The margin is inked green. The 12 o'clock and 6 o'clock tips are submitted in cassette 1. The remainder of the ellipse is serially sectioned and submitted in cassettes 2-3. Jar 0. 1:58 PM [facility] DERMATOPATHOLOGY [facility]ORY Microscopic Description Specimen A. SKIN, [...] the margin of the specimen. 1:58 PM [facility] DERMATOPATH[facility]Y [facility]ORY Disclaimer An external and internal positive and negative controls are appropriate for the histochemical, immunohistochemical and immunofluorescence stain(s) in this case (if any), except where stated explicitly. The performance characteristics of the stain(s) cited in this report were developed and its performance characteristic determined by the Dermatopathology Laboratory at [facility], directed by Dr. Mary Celaya. These tests need not be, and therefore are not, approved by the [place] Food and Drug Administration. The tests are used for clinical purposes. Billing Codes Specimen Charges Stain Charges 48327 1 50818 1 1:58 PM T DERMATOPATHOLOGY LABORATORY Embedded Images 1:58 PM [facility] DERMATOPATH[facility]Y [facility]ORY Pathology/Cytolog y TISSUE SPECIMEN FROM SKIN / Unknown 07/16/2018 07/17/2018 11:34 AM CDT Serge Hawley MD LAB - PATHOLOGY/CYTO LOGY ORDERABLES DERMATOPATHOLOGY LABORATORY [facility] - Department of Dermatology [address] [place] [address], 5th Floor Lab [address] [phone] documented in this encounter Visit Diagnoses Not on filedocumented in this encounter Care Teams Mud Grinder Relationship Specialty Start Date End Date Tee Chung DO [address] [place] [phone] PCP - General Internal Medicine 04/10/16 documented as of this encounter
--- OUTSIDE RECORDS SUMMARY | 2024-05-19 10:26 | XMS_ITS | Referral Summary ---
Author Organization [facility] Address [address] [place] [address] Care Team Providers Care Maintenance Aide Name Role Phone Tee Chung DO Primary Care Provider [phone] Source Comments [facility],non-owned Affiliates and Associated Physician Practices is amultiple site organization consisting of ambulatory clinics and hospital sitesin [place], [place]. This disclosure is being madepursuant to the Care Everywhere program and may not contain all information available regarding this patient. Last updated 17.[facility] [employer] Allergies Active Allergy Reactions Criticality Noted Date [...] PM CDT Pulse 71 05/18/2019 12:50 PM LABORATORY SAMPLER Temperature 36.4 C (97.6 F) 09/27/2022 1:17 PM CDT Respiratory Rate 16 04/26/2018 2:26 PM LABORATORY SAMPLER Oxygen Saturation 96% 05/18/2019 12:50 PM LABORATORY SAMPLER Inhaled Oxygen Concentration - - Weight 58.8 [...] Quantitative <15 NOT DETECTED <15 IU/mL [facility] ([facility]) Hepatitis C Virus RNA Log IU/mL <1.18 NOT DETECTED <1.18 Log IU/mL [facility] ([facility]) Comment: Please note: There are several scenarios [...] to the current Treatment Guidelines (J Hepatol, 2372-7019, ). Please correlate these findings with the patient's clinical history and any other diagnostic findings, including any evidence of liver dysfunction. See Note [facility] ([facility]) Comment: The analytical performance characteristics of this assay have been determined by [employer]. The modifications have not been cleared or approved by the FDA. This assay has been validated pursuant to the CLIA regulations and is used for clinical purposes. This test was performed using the ROMA(R)AmpliPrep/ ROMA(R)TaqMan(R)HCV Test,v2.0. For more information on this test, go to: http://education.Roomorama/faq/FOB29i3 (This link is being provided for informational/ educational purposes only.) Test Performed at: [facility] [address] [address] [place] [address] SAAD HAMILTON DO,MPH 09/08/2015 2:07 PM CDT 09/08/2015 2:11 PM CDT Aniceto Barker MD LAB - CHEMISTRY ALFREDO YOUNGER [facility] ([facility]) from Last 3 Months or Most Recently Relevant to Health Maintenance Care Teams Maintenance Aide Relationship Specialty Start Date End Date Tee Chung DO [address] [phone] PCP - General Internal Medicine 04/10/16
--- OUTSIDE RECORDS SUMMARY | 2024-05-19 10:26 | XMS_ITS | Continuity of Care Document ---
Author Organization [facility] Address [address] [place] [address] [place] [address] Phone Care Team Providers Care Rock Contractor Name Role Phone Joseph TORRES, Sami Unavailable [...] Diagnoses Date Provider Providers Copied on Encounter [facility], [address] [place], [id number], [place] tel:[phone] [facility] No Information 2 Joseph Ferrari [address], [address], [place], [place], [address] , [place]. tel:[phone] OFFICE/OUTPA TIENT VISIT, [facility], [address], [place], [place], [id number], [place] tel:[phone] [facility] chronic pain1 (chief complaint) Chronic pain syndromeOther spondylosis, lumbar region 2 Joseph Ferrari [address], [address], [place], [place], [address] , [place]. tel:[phone] OFFICE/OUTPA TIENT VISIT, [facility], [address], [address], [place] tel:[phone] [facility] pain (chief complaint) Chronic pain syndromeOther spondylosis, lumbar region 2 Joseph Gallardo. [address], [place], [place], [id number] , [place]. tel:[phone] OFFICE/OUTPA TIENT VISIT, [facility], [address], [place], [place], [address], [place] tel:[phone] [facility] chronic pain1 (chief complaint) urinary urgencny1 (chief complaint) Chronic pain syndromeOveractive bladder 2 Joseph Gallardo. [address], [address], [place], [place], [address] , [place]. tel:[phone] OFFICE/OUTPA TIENT VISIT, [facility], [address], [place], [place], [address], [place] tel:[phone] [facility] PHysical (chief complaint) Encounter for general adult medical exam w abnormal findingsFibromyalgi aGERD w/o esophagitisOsteopor osisVenous insufficiencyMigrai ne 2 Joseph Gallardo. [address], [place], [place], [address] , [place]. tel:[phone] Family History Family Member Type Diagnosis Age [...] Pt wants UA test. Pt just saw CLERICAL ASSOCIATE yesterday but she did not do pelvic exam Pt had breast exam done and she will do mammo soon. Pt also has urinary urgency. Pt states that she was told that she dose NOT have DM. Pt also denies any fever, chill, flank pain. PHysical Pt needs annual physical Pt has not seen PCP for 1.5 years. Pt moved here from [place] two years ago. Pt has history of [...] Pt rarely takes above meds. Pt sees marine cargo specialist in [facility] for left shoulder pain who referred her [...]
--- OUTSIDE RECORDS SUMMARY | 2024-05-19 10:26 | XMS_ITS | Encounter Summary ---
Author Organization [facility] Address [address] [place] [address] Care Team Providers Care Assembly Mechanic Name Role Phone Juan Davis MD Unavailable [phone] No, Physician Primary Care Provider [phone] Sami Ruiz MD Primary Care Provider [phone] No, Physician Primary Care Provider [phone] Encounter Details Date Type Department Care Team (Late st Contact Info) Description 09/01/2020 Telephone [facility] [address] [place] [id number] Linda Adam, Social History Tobacco Use Types Packs/Day Years Used Date Smoking Tobacco: Every Day Alcohol Use Standard Drinks/Week Comments Yes 0 (1 standard drink = 0.6 oz pur e alcohol) Comments Unknown Sex and Gender Information Value Date Recorded Sex Assigned at Not on file Legal Sex Female 1:00 AM 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
--- OUTSIDE RECORDS SUMMARY | 2024-05-19 10:26 | XMS_ITS | Clinical Summary ---
Author Organization [facility] Address [address] [place] [address] Phone Care Team Providers Care Ladies Suit Operator Name Role Phone Juan Davis MD Unavailable [phone] No, Physician Primary Care Provider [phone] Allergies Active Allergy Reactions Criticality Noted Date [...] 06/03/2019 Assessment & Plan (06/03/2019 5:12 PM CORRESPONDENCE DICTATOR): Start Ocusoft eyelid wipes + hypochlorous eyelid spray BID both eyes (OU). Recommend PFATs BID+. Start Azasite - apply to the eyelid margins BID both eyes (OU). RTC 2 mo f/u. Dermatochalasis of both upper eyelids 06/03/2019 Assessment & Plan (06/03/2019 5:15 PM CORRESPONDENCE DICTATOR): Status post (s/p) bilateral blepharoplasty in 2007. Pt not bothered with appearance at this time. Pt ed re: option for referral to plastics. Age-related nuclear cataract of both eyes 2019 Assessment & Plan (06/03/2019 5:16 PM CORRESPONDENCE DICTATOR): Defer cataract surgery until signs and symptoms [...] on file Legal Sex Female 1:00 AM CORRESPONDENCE DICTATOR Gender Identity Female 12/12/2020 6:03 PM CDT Sexual Orientation Not on file Obstetrics History Last Filed Vital Signs Vital Sign Reading Time Taken Comments Blood Pressure 127/84 01/15/2024 2:21 PM CDT Pulse 67 01/15/2024 2:21 PM CDT Temperature 36.5 C (97.7 F) 10/16/2020 3:23 PM CDT Respiratory Rate - - Oxygen Saturation 98% [...] Bone mineral density was performed on a Holo[employer] Motion Discovery Densitometer. Based on machine cross-calibration and precision studies [...] by the International Society of Clinical Densitometry. [id number] Zheng Alvarado MD IMG DXA PROCEDURES Final Result from Last 3 Months or Most Recently Relevant to Health Maintenance Insurance MEDICARE [facility] MEDICARE [facility] MEDICARE [facility] MEDICARE Care Teams Ladies Suit Operator Relationship Specialty Start Date End Date No, Physician PCP - General 01/15/24 Juan Davis MD [address] [address] Consulting Physician Rheumatology 07/23/18
--- OUTSIDE RECORDS SUMMARY | 2024-05-19 10:26 | XMS_ITS | Patient Health Summary ---
Author Organization [facility] Address [address] [place] [address] Care Team Providers Care Plug Cutting Machine Operator Name Role Phone Radha Enriquez DO Primary Care Provider [phone] Note from [facility],non-owned Affiliates and Associated Physician Practices is amultiple site organization consisting of ambulatory clinics and hospital sitesin [place], [place], [place] and [place]. This disclosure is being madepursuant to the Care Everywhere program and may not contain all information available regarding this patient. Last updated 17.[facility] Allergies * Aspirin(Nausea and/or Vomiting) -Low Criticality [...] PM CDT Pulse 71 05/18/2019 12:50 PM TEST RACK OPERATOR Temperature 36.4 C (97.6 F) 09/27/2022 1:17 PM CDT Respiratory Rate 16 04/26/2018 2:26 PM TEST RACK OPERATOR Oxygen Saturation 96% 05/18/2019 12:50 PM TEST RACK OPERATOR Inhaled Oxygen Concentration - - Weight 58.8 kg (129 lb 9.6 oz) 09/27/2022 1:17 P M CDT Height 165.1 cm (5' 5 ) 09/27/2022 1:17 PM CDT Body Mass Index 21.57 09/27/2022 1:17 PM CDT Procedures * URINALYSIS W/MICROSCOPIC NO CULTURE(Performed 04/17/2022) Performed for Microscopic hematuria * CULTURE URINE COMPREHENSIVE(Performed 04/17/2022) Performed for Recurrent UTI * KS INSERT NON-INDWELLING BLADDER(Performed 04/17/2022) Performed for Recurrent [...] URINALYSIS W/MICROSCOPIC NO CULTURE (04/17/2022 2:33 PM TEST RACK OPERATOR) Only the most recent of2 resultswithin the time period is included. Color UA YELLOW YELLOW [facility] Appearance CLEAR CLEAR [facility] Specific [place] UA 1.004 1.001 - 1.035 [facility] pH [...] SEEN /LPF [facility] Comment: Test Performed at: [facility] [address] MAKAYLA KIMBROUGH MD Urine URINE SPECIMEN COLLECTION, CATHETERIZED / Unknown 04/17/2022 2:33 PM TEST RACK OPERATOR 04/19/2022 12:05 AM TEST RACK OPERATOR Yonathan Ladd MD LAB - URINALYSIS ORD ERABLES Performing Organization Address [facility] Co de Phone Number [address] [address] * CULTURE URINE COMPREHENSIVE (04/17/2022 2:31 PM TEST RACK OPERATOR) Only the most recent of2 resultswithin the time period is included. Culture [facility] Comment: CULTURE, URINE, SPECIAL Micro Number: [id number] Test Status: Final Specimen Source: Urine cathet Specimen Quality: Adequate Result: No Growth Test Performed at: [facility] [address] MAKAYLA KIMBROUGH MD Microbiology URINE SPECIMEN COLLECTION, CATHETERIZED / Unknown 04/17/2022 2:31 PM TEST RACK OPERATOR 04/19/2022 4:13 AM TEST RACK OPERATOR Yonathan Ladd MD LAB - MICROBIOLOGY O RDERABLES Performing Organization Address [facility] de Phone Number [address] [address] * KS INSERT NON-INDWELLING BLADDER (04/17/2022 2:30 PM TEST RACK OPERATOR) Narrative Yonathan Ladd Che, MD - 04/17/2022 2:30 PM TEST RACK OPERATOR Yonathan Ladd Che, MD 04/17/2022 2:31 PM The patient was prepped with betadine [...] POCT neg Ketones UA POCT neg Specific [place] UA 1.005 Blood Urine POCT + pH [...] period is included. Case Report Dermatopathology Report Case: [id number] Authorizing Provider: Serge Hawley MD Collected: 07/16/2018 12:00 AM Pathologist: Payal Lucero MD Received: 07/17/2018 11:34 AM Specimen: Skin, left upper arm 1:58 PM CDT DERMATOPATHOLOGY LABORATORY Final Diagnosis Specimen A. SKIN, left upper arm: EPIDERMOID CYST WITH HYPERTROPHIC SCAR (L72.0) (L91.0) NOT PRESENT AT MARGIN (see microscopic description) 1:58 PM CDT DERMATOPATHOLOGY LABORATORY Clinical History Lesion. Check margins. 1:58 PM CDT DERMATOPATHOLOGY LABORATORY Gross Description Specimen A: Received is one formalin filled container labeled with the patient's name and designated left upper arm. The specimen consists of a non-oriented ellipse of skin measuring [id number]. The epidermal surface consists of a centrally located [id number] erosion. The margin is inked green. The [...] characteristic determined by the Dermatopathology Laboratory at [facility], directed by Dr. Mary Celaya. These tests need not be, and therefore are not, approved by the [place] Food and Drug Administration. The tests are used for clinical purposes. Billing Codes Specimen Charges Stain Charges 90362 1 86206 1 1:58 PM CDT DERMATOPATHOLOGY LABORATORY Embedded Images 1:58 PM CDT DERMATOPATHOLOGY LABORATORY Pathology/Cytolog y TISSUE SPECIMEN FROM SKIN / Unknown 07/16/2018 07/17/2018 11:34 AM CDT Serge Hawley MD LAB - PATHOLOGY/CYTO LOGY ORDERABLES Performing Organization Address City/State/[facility] Co de Phone Number DERMATOPATHOLOGY LABORATORY [facility] - Department of Dermatology [address] [place] [address] [address] [phone] * NM BRAIN IMAGING SHAHAB SCAN (12/25/2017 3:43 PM CDT) Anatomical Region Laterality Modality Nuclear Medicine 12/25/2017 3:52 PM CDT Impressions 12/25/2017 4:21 PM CDT Impression: Mildly reduced uptake in the putamen but the comma shape is retained. Findings are not supportive of parkinsonian syndromes. This report was approved by Mat Paul on 12/25/2017 4:07 PM . IDr. MT D.O. have personally reviewed and interpreted this examination/study. This report was electronically signed by MT BENITO D.O. on 12/25/2017 4:21 PM . Narrative 12/25/2017 4:21 [...] Mat Paul on 12/25/2017 4:07 PM . IDr. MT D.O. have personally reviewed and interpreted this examination/study. This report was electronically signed by MT BENITO D.O. on12/25/2017 4:21 PM . Darling Mckeon MD NM ORDERABLES * ACETYLCHOLINE RECEPTOR MODULATING ANTIBODY (11/24/2017 3:45 PM CDT) [facility] Acetylcholine Modulating Antibody <12 0 - 20 % 11/30/2017 11:06 AM CDT [facility] ([facility]) Comment: Negative: <21 Equivocal: 21 - 25 Positive: >25 The assay is linear between values of 12 and 64. Those <12 and >64 are reported as such. No single value for ACR-modulating antibody should be used as a sole basis for diagnosis or response to therapy. Blood BLOOD SPECIMEN / Unknown Lab Venipuncture / Unknown 11/24/2017 3:45 PM CDT 11/24/2017 4:07 PM CDT Narrative [facility] ([facility]) - 11/30/2017 11:06 AM CDT Performed at: [address] [place] [id number] Stereo Compiler: Saad Duffy MD, Phone: [phone] Darling Mckeon MD LAB - SEROLOGY ORDER [facility]) [address] [phone] * ACETYLCHOLINE RECEPTOR BLOCKING ANTIBODY (11/24/2017 3:45 PM CDT) [facility] Acetylcholine Blocking Antibody 18 0 - 25 % 11/28/2017 4:26 PM CDT [facility]) Comment: Negative: 0 - 25 Borderline: 26 - 30 Positive: >30 Results for this test are for research purposes only by the assay's tree loader meat. The performance characteristics of this product have not been established. Results should not be used as a diagnostic procedure without confirmation of the diagnosis by another medically established diagnostic product or procedure. Blood BLOOD SPECIMEN / Unknown Lab Venipuncture / Unknown 11/24/2017 3:45 PM CDT 11/24/2017 4:13 PM CDT [facility]) - 11/28/2017 4:26 PM CDT Performed at: [address] [place] [id number] Stereo Compiler: Saad Duffy MD, Phone: [phone] Darling Mckeon MD LAB - SEROLOGY ORDER ROSA Performing Organization Address City/[facility] Co de Phone Number [facility] ([facility]) [address] [place] [address] * ACETYLCHOLINE RECEPTOR BINDING ANTIBODY (11/24/2017 3:45 PM CDT) Pathologist [facility] Acetylcholine Binding Antibody <0.03 0.00 - 0.24 nmol/L 11/26/2017 3:17 PM CDT [facility] ([facility]) Comment: Negative: 0.00 - 0.24 Borderline: 0.25 - 0.40 Positive: > 0.40 Blood BLOOD SPECIMEN / Unknown Lab Venipuncture / Unknown 11/24/2017 3:45 PM CDT 11/24/2017 4:09 PM CDT [facility] ([facility]) - 11/26/2017 3:17 PM CDT Performed at: [address] [place] [id number] Stereo Compiler: Saad Duffy MD, Phone: [phone] Darling Mckeon MD LAB - SEROLOGY ORDER ROSA Performing Organization Address [facility] Co de Phone Number [facility] ([facility]) [address] [place] [address] * THYROGLOBULIN (11/24/2017 3:45 PM CDT) [facility] Thyroglobulin LCMS 12.4 1.5 - 38.5 ng/mL 11/27/2017 12:17 PM CDT [facility] ([facility]) Comment: According to the National Academy of [...] CDT 11/24/2017 4:09 PM CDT Narrative [facility] ([facility]) - 11/27/2017 12:17 PM CDT Performed at: 01 - [address] [id number] Stereo Compiler: Saad Duffy MD, Phone: [phone] Darling Mckeon MD LAB - CHEMISTRY ALFREDO YOUNGER [facility] ([facility]) [address] [place] [address], [facility] * PARANEOPLASTIC AUTOANTIBODY EVALUATION (11/24/2017 3:41 PM CDT) Interpretive Comment Comment 12/05/2017 5:12 PM CDT [facility] ([facility]) Comment: Part of this testing algorithm includes [facility]' ARBI: Acetylcholine Receptor (Muscle AChR) Binding Antibody, Serum. [...] <1:240 titer 12/05/2017 5:12 PM CDT [facility] ([facility]) Reflex Added None. 12/05/2017 5:12 PM CDT [facility] ([facility]) Comment: ADDITIONAL INFORMATION This test was developed and its performance characteristics determined by [facility] in a manner consistent with CLIA requirements. This test has not been cleared or approved by the U.S. Food and Drug Administration. RIGOBERTO Type 2 Negative <1:240 titer 12/05/2017 5:12 PM CDT [facility] ([facility]) Comment: ADDITIONAL INFORMATION This test was developed and its performance characteristics determined by [facility] in a manner consistent with CLIA requirements. This test has not been cleared or approved by the U.S. Food and Drug Administration. RIGOBERTO Type 3 Negative <1:240 titer 12/05/2017 5:12 PM CDT [facility] ([facility]) Comment: ADDITIONAL INFORMATION This test was developed and its performance characteristics determined by [facility] in a manner consistent with CLIA requirements. This test has not been cleared or approved by the U.S. Food and Drug Administration. Glial Nuclear Antibody Type 1 Negative <1:240 titer 12/05/2017 5:12 PM CDT [facility] ([facility]) Comment: ADDITIONAL INFORMATION This test was developed and its performance characteristics determined by [facility] in a manner consistent with CLIA requirements. This test has not been cleared or approved by the U.S. Food and Drug Administration. Purkinje Cell Antibody Type 1 Negative <1:240 titer 12/05/2017 5:12 PM CDT [facility] ([facility]) Comment: ADDITIONAL INFORMATION This test was developed and its performance characteristics determined by [facility] in a manner consistent with CLIA requirements. This test has not been cleared or approved by the U.S. Food and Drug Administration. Purkinje Cell Cytop Antibody Type 2 Titer Negative <1:240 titer 12/05/2017 5:12 PM CDT [facility] ([facility]) Comment: ADDITIONAL INFORMATION This test was developed and its performance characteristics determined by [facility] in a manner consistent with CLIA requirements. This test has not been cleared or approved by the U.S. Food and Drug Administration. Purkinje Cell Antibody Type TR Negative <1:240 titer 12/05/2017 5:12 PM CDT [facility] ([facility]) Comment: ADDITIONAL INFORMATION This test was developed and its performance characteristics determined by [facility] in a manner consistent with CLIA requirements. This test has not been cleared or approved by the U.S. Food and Drug Administration. Amphiphysin Antibody S Titer Negative <1:240 titer 12/05/2017 5:12 PM CDT [facility] ([facility]) Comment: ADDITIONAL INFORMATION This test was developed and its performance characteristics determined by [facility] in a manner consistent with CLIA requirements. This test has not been cleared or approved by the U.S. Food and Drug Administration. CRMP-5 Antibody IgG Negative <1:240 titer 12/05/2017 5:12 PM CDT [facility] ([facility]) Comment: ADDITIONAL INFORMATION This test was developed and its performance characteristics determined by [facility] in a manner consistent with CLIA requirements. This test has not been cleared or approved by the U.S. Food and Drug Administration. Striated Muscle Antibody Titer Negative <1:120 titer 12/05/2017 5:12 PM CDT [facility] ([facility]) Comment: ADDITIONAL INFORMATION This test was developed and its performance characteristics determined by [facility] in a manner consistent with CLIA requirements. This test has not been cleared or approved by the U.S. Food and Drug Administration. Calcium Channel Antibody Type P/Q 0.00 <=0.02 nmol/L 12/05/2017 5:12 PM CDT [facility] ([facility]) Comment: ADDITIONAL INFORMATION This test was developed and its performance characteristics determined by [facility] in a manner consistent with CLIA requirements. This test has not been cleared or approved by the U.S. Food and Drug Administration. Calcium Channel Antibody Type N 0.00 <=0.03 nmol/L 12/05/2017 5:12 PM CDT [facility] ([facility]) Comment: ADDITIONAL INFORMATION This test was developed and its performance characteristics determined by [facility] in a manner consistent with CLIA requirements. This test has not been cleared or approved by the U.S. Food and Drug Administration. Acetylcholine Binding Antibody Comment <=0.02 nmol/L 12/05/2017 5:12 PM CDT [facility] ([facility]) Comment: Due to reagent unavailability, ARBI: Acetylcholine Receptor (Muscle AChR) Binding Antibody, Serum, will not be performed at [facility]. If Acetylcholine Receptor Binding Antibody testing is desired, please order FABAB: Acetylcholine Receptor Binding Antibody, which is performed at another laboratory. Given the differences in assay methodologies, direct comparison of quantitative results is not possible. Interpretation of these results should be made within the clinical context. If any concerns arise, laboratory consultation in regards to these results is available by calling . ADDITIONAL INFORMATION This test was developed and its performance characteristics determined by [facility] in a manner consistent with CLIA requirements. This test has not been cleared or approved by the U.S. Food and Drug Administration. Ganglionic Neuronal Antibody 0.00 <=0.02 nmol/L 12/05/2017 5:12 PM CDT [facility] ([facility]) Comment: ADDITIONAL INFORMATION This test was developed and its performance characteristics determined by [facility] in a manner consistent with CLIA requirements. This test has not been cleared or approved by the U.S. Food and Drug Administration. Voltage Gated Potassium Antibody 0.00 <=0.02 nmol/L 12/05/2017 5:12 PM CDT [facility] ([facility]) Comment: ADDITIONAL INFORMATION This test was developed and its performance characteristics determined by [facility] in a manner consistent with CLIA requirements. This test has not been cleared or approved by the U.S. Food and Drug Administration. Blood BLOOD SPECIMEN / Unknown Lab Venipuncture / Unknown 11/24/2017 3:41 PM CDT 11/24/2017 4:08 PM CDT Narrative [facility] ([facility]) - 12/05/2017 5:12 PM CDT Performed at: 01 - [facility] Labs [facility] [address] [place], [place] [id number] Stereo Compiler: Saad Bah , Phone: [phone] Darling Mckeon MD LAB - CHEMISTRY ALFREDO YOUNGER [facility] [address] [place] [address] * HEMOGLOBIN A1C (11/24/2017 3:41 PM CDT) [facility] Hemoglobin A1c 5.4 4.4 - 6.3 % 11/25/2017 9:25 AM CDT [facility] Estimated Average Glucose 108 mg/dL 11/25/2017 9:25 AM T [facility] Comment: HbA1c Interpretation: Treatment target values recommended by ADA and other clinical organizations should be used to evaluate metabolic control in patients. Treatment Target Values: Normal : < 5.7% Pre-diabetes: 5.7-6.4% Diabetes: Equal to or greater than 6.5% Reference: [place] Diabetes Association Standards of Care in Diabetes -2014 In patients 70 years and older consider HbA1c target range of 7.0-7.5% Reference: Diabetes Mellitus in Older People: Position Statement on behalf of the International Association of Gerontology and Geriatrics (IAGG), the Diabetes Working Republican for Older People (EDWPOP), and the International Task Force of Experts in Diabetes. Mayo Quinn et al. J [employer] Directors Association. 2012 Test results diagnostic [...] Mckeon MD LAB - CHEMISTRY ALFREDO YOUNGER Performing Organization Address [facility] Co de Phone Number [facility] [address] [phone] * GLUTAMIC ACID DECARBOXYLASE (JONA) ANTIBODY (11/24/2017 3:41 PM CDT) [facility] JONA-65 Antibody <5.0 0.0 - 5.0 U/mL 11/26/2017 4:22 PM CDT [facility] ([facility]) Blood BLOOD SPECIMEN / Unknown Lab Venipuncture / Unknown 11/24/2017 3:41 PM CDT 11/24/2017 4:07 PM CDT Narrative [facility] ([facility]) - 11/26/2017 4:22 PM CDT Performed at: [address] [place] [id number] Stereo Compiler: Saad Duffy MD, Phone: [phone] Darling Mckeon MD LAB - SEROLOGY ORDER ROSA Performing Organization Address City/[facility] Co de Phone Number [facility] ([facility]) [address] [id number] * MUSCLE BIOPSY (07/17/2017 3:26 PM CDT) Narrative Darling Mckeon MD - 07/17/2017 3:26 PM CDT Darling Mckeon MD 07/17/2017 3:26 PM Muscle Biopsy Procedure Note Date: 07/17/2017 Procedure: muscle biopsy- left QC. Indications:muscle weakness- myopathy. Anesthesia: 1% Lidocaine with Epinephrine The procedure was explained to the patient including risks of bleeding and infection and benefits. Written consent was obtained. The area was cleaned and prepped in the usual manner. After giving local anesthesia, the subcutaneous and deep tissue were incised. Normal looking muscle measuring 3/4 cm. By 1/2 cm was taken out. Deep and subcutaneous tissue was closed with 4-0 chromic. The skin was closed with 4-0 silk. There were no complications. The patient tolerated the procedure well. Complications: None Darling Mckeon M.D Neuromuscular Attending Darling Mckeon MD NEUROLOGY ORDERABLES * PATHOLOGY TISSUE (07/17/2017 3:06 PM CDT) Case Report Surgical Pathology Report Case: [id number] Authorizing Provider: Darling Mckeon MD Collected: 07/17/2017 03:06 PM Ordering Location: [facility] EEG/EMG Received: 07/17/2017 03:57 PM Pathologist: Sharon Fritz MD Specimen: Muscle Biopsy, left thigh muscle 07/29/2017 12:53 PM CDT [facility] Final Diagnosis SKELETAL MUSCLE , [...] of inclusion body myositis. 07/29/2017 12:53 PM CDT [facility] PATHOLOGY LAB Clinical History 66-year-old woman for muscle biopsy because of myalgias. 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 The patient is on multiple medications including prednisone. She has a previous history of chronic fatigue, fibromyalgia, osteoarthritis, positive double stranded DNA and RF, Raynaud syndrome, hepatitis C. CRP is less than 0.1 and ESR is 4. 07/29/2017 12:53 PM [facility] PATHOLOGY LAB Gross Description Submitted fresh, at room temperature, wrapped in gauze, without orientation are two portions of red-brown skeletal muscle, designated Ieft thigh , measuring 1.2 x 1.1 x 0.4 and 1.3 x 1.2 x 0.4 cm. The specimens are submitted in toto. The specimen is frozen in liquid nitrogen cooled isopentane. 07/29/2017 12:53 PM [facility] PATHOLOGY LAB Microscopic Description 1 H&E, [...] of an addendum report. 07/29/2017 12:53 PM [facility] PATHOLOGY LAB Addendum 1 Frozen sections [...] findings in this biopsy. 07/29/2017 12:53 PM [facility] PATHOLOGY LAB Addendum electronically signed by Sharon Fritz MD on 07/29/2017 at 12:52 PM Disclaimer The performance characteristics of all immunohistochemical and indirect immunofluorescence stains (if any) cited in this report were determined by the Histopathology Laboratory of [facility]. Some of these tests were developed [...] attending (teaching) pathologist. 07/29/2017 12:53 PM T [facility] PATHOLOGY LAB Embedded Images 07/29/2017 12:53 PM [facility] PATHOLOGY LAB Pathology/Cytology MUSCLE BIOPSY SPECIMEN / Unknown Collection / Unknown 07/17/2017 3:06 PM CDT 07/17/2017 3:57 PM CDT Comment:H&E, Villanueva, ATPase, NA DP, ROSALIA, MItochondria. Looking for vacuoles and mitochondrial changes and amyloid-suspecting [employer]. Darling Mckeon MD LAB - PATHOLOGY/CYTO LOGY ORDERABLES [facility] PATHOLOGY LAB [address] [place] [address], [facility] [phone] * URINALYSIS - POINT OF CARE (AMB) [facility] (04/26/2016) Glucose UA neg [facility] Bilirubin UA POCT neg [facility] Ketones UA POCT neg [facility] Specific [place] UA 1.000 [facility] Blood Urine POCT [facility] pH UA 9.0 [facility] Protein UA neg [facility] Urobilinogen UA neg [facility] Nitrite UA neg [facility] WBC UA neg [facility] Urine specimen (specimen) 04/26/2016 sonny Ladd MD LAB - POINT OF CARE ORDERABLES [facility] * HEPATITIS C AB W/RFLX TO HCV RNA QN PCR (09/08/2015 2:07 PM CDT) Hepatitis C Virus RNA PCR Quantitative <15 NOT DETECTED <15 IU/mL [facility] ([facility]) Hepatitis C Virus RNA Log IU/mL <1.18 NOT DETECTED <1.18 Log IU/mL [facility] ([facility]) Comment: Please note: There are several scenarios [...] to the current Treatment Guidelines (J Hepatol, 9652-6995, ). Please correlate these findings with the patient's clinical history and any other diagnostic findings, including any evidence of liver dysfunction. See Note [facility] ([facility]) Comment: The analytical performance characteristics of this assay have been determined by [facility] [employer]. The modifications have not been cleared or approved by the FDA. This assay has been validated pursuant to the CLIA regulations and is used for clinical purposes. This test was performed using the ROMA(R)AmpliPrep/ ROMA(R)TaqMan(R)HCV Test,v2.0. For more information on this test, go to: http://education.MusicIP/faq/NSS41o6 (This link is being provided for informational/ educational purposes only.) Test Performed at: [facility] [address] [place] [address] SAAD HAMILTON DO,MPH 09/08/2015 2:07 PM CDT 09/08/2015 2:11 PM CDT Aniceto Barker MD LAB - CHEMISTRY [facility]FR[facility]O [facility]ER [facility] [facility]) * ANCA SCREEN W/ REFLX MPO+PR3+TITER (09/08/2015 2:07 PM CDT) ANCA Screen Negative Negative [facility] Comment: ANCA Screen includes evaluation for p-ANCA, c-ANCA, and atypical p-ANCA. Myeloperoxidase Antibody <1.0 <1.0 AI [facility] Comment: Value Interpretation <1.0 AI: No Antibody Detected >or=1.0 AI: Antibody Detected Autoantibodies to myeloperoxidase (MPO) are commonly associated with the following small-vessel vasculitides: microscopic polyangiitis, polyarteritisnodosa, Churg-Gonsalo syndrome, necrotizing and crescentic glomerulonephritis and occasionally Wegeners granulomatosis. The perinuclear IFA pattern, (p-ANCA) is based largely on autoantibody to myeloperoxidase which serves as the primary antigen. These autoantibodies are present in active disease state. ANCA Proteinase 3 <1.0 <1.0 AI [facility] Comment: Value Interpretation <1.0 AI: No Antibody Detected >or=1.0 AI: Antibody Detected Autoantibodies to proteinase-3 (KS-3) are accepted as characteristic for granulomatosis with polyangiitis (Prince's), and are detectable in 95% of the histologically proven cases. The cytoplasmic IFA pattern, (c-ANCA), is based largely on autoantibody to KS-3 which serves as the primary antigen. These autoantibodies are present in active disease state. Test Performed at: [facility]/[address] [address] CADEN PEGUERO MD,PHD 09/08/2015 2:07 PM CDT 09/08/2015 2:11 PM CDT Aniceto Barker MD LAB - CHEMISTRY ALFREDO YOUNGER Performing Organization Address [facility] Phone Number [facility] * (ABNORMAL) VITAMIN D 25-HYDROXY D2+D3 BY TANDEM MASS (09/08/2015 2:07 PM CDT) Only the most recent of3 resultswithin the time period is included. [facility] Vitamin D, 25 Hydroxy Total 27(L) 30 - 100 ng/mL [facility]) Comment: Vitamin D Status 25-OH Vitamin D: Deficiency: <20 ng/mL Insufficiency: 20 - 29 ng/mL Optimal: > or = 30 ng/mL For 25-OH Vitamin D testing on patients on D2-supplementation and patients for whom quantitation of D2 and D3 fractions is required, the QuestAssureD(TM) 25-OH VIT D, (D2,D3), LC/MS/MS is recommended: order code 15088 (patients >2yrs). For more information on this test, go to: http://education.MusicIP/faq/TCC990 (This link is being provided for informational/educational purposes only.) Test Performed at: [employer] [id number] [place] [address] SAAD HAMILTON DO,MPH Blood specimen (specimen) BLOOD SPECIMEN / Unknown 09/08/2015 2:07 PM CDT 09/08/2015 2:11 PM CDT Aniceto Barker MD LAB - CHEMISTRY ALFREDO YOUNGER Performing Organization Address [facility] de Phone Number [facility] * (ABNORMAL) NIXON COMPREHENSIVE PLUS PROFILE (09/08/2015 2:07 PM CDT) [facility] NIXON Screen NEGATIVE NEGATIVE [facility]) Comment: A negative ANAchoice(TM) indicates the absence of detectable antibodies to component analytes consisting of dsDNA, Chromatin, TRIM MACHINE ADJUSTER, Sm/TRIM MACHINE ADJUSTER, Sm, SSA, SSB, Violetta-1, Centromere B, Scl-70 and Ribosomal P. A negative ANAchoice(TM) should be interpreted in the context of the clinical and laboratory findings, and does not rule out autoimmune disease characterized by other autoantibody specificities including autoimmune hepatitis and primary biliary cirrhosis. NIXON Pattern #1 TNP [facility] Comment: TNP-Reflex testing not required. Reference Ranges for Anti-Nuclear Ab Titer: <1:40 Negative 1:40-1:80 Low Antibody Level >1:80 Elevated Antibody Level A positive NIXON result may be seen in a variety of diseases and healthy individuals. Its interpretation depends on clinical findings and other laboratory data. Rheumatoid Factor 25(H) <14 IU/mL [facility]) dsDNA Antibody Crithidia IFA NEGATIVE NEGATIVE [facility]) dsDNA Antibody Crithidia Titer TNP-Reflex testing not required. [facility] Comment: EDGAR Meza (SM) Antibody <1.0 NEG <1.0 NEGATIVE AI [facility] SM/TRIM MACHINE ADJUSTER Antibody <1.0 NEG <1.0 NEGATIVE AI [facility] Sjogren's Antibodies (SSA) <1.0 NEG <1.0 NEGATIVE AI [facility] Sjogren's Antibodies (SSB) <1.0 NEG <1.0 NEGATIVE AI [facility]) EDGAR SCL-70 Antibody <1.0 NEG <1.0 NEGATIVE AI [facility]) Comment: Test Performed at: [facility] [address] [place] [address] JASWANT BARNES MD PHD 09/08/2015 2:07 PM CDT 09/08/2015 2:11 PM CDT Aniceto Barker MD LAB - CHEMISTRY ALFREDO YOUNGER [facility] * CHROMATIN ANTIBODY (09/08/2015 2:07 PM CDT) Only the most recent of2 resultswithin the time period is included. Chromatin Nucleosomal <1.0 NEG <1.0 NEG AI [facility] Comment: Test Performed at: [facility] [address] [place] [address] SAAD HAMILTON DO,MPH Blood specimen (specimen) BLOOD SPECIMEN / Unknown 09/08/2015 2:07 PM CDT 09/08/2015 2:11 PM CDT Aniceto Barker MD LAB - SEROLOGY ORDER ROSA [facility] * CARDIOLIPIN ANTIBODY IGA/IGG/IGM PANEL (09/08/2015 2:07 PM CDT) Cardiolipin Antibody IgA <11 APL [facility] Comment: < OR = 11 Negative 12-20 Indeterminate 21-80 Low to Medium Positive >80 High Positive For more information on this test, go to: http://Fuel (fuelpowered.com).MusicIP/faq/MFM612 Cardiolipin Antibody IgG <14 GPL [facility] Comment: < OR = 14 Negative 15-20 Indeterminate 21-80 Low to Medium Positive >80 High Positive Greater than or equal to 40 GPL is a risk factor for thrombosis and loss. For more information on this test, go to: http://Fuel (fuelpowered.com).MusicIP/faq/EEK878 Cardiolipin Antibody IgM <12 MPL [facility]) Comment: Clinical Significance: The Antiphospholipid Antibody Syndrome [...] 2006: 4; 295. < OR = 12 Negative 13-20 Indeterminate 21-80 Low to Medium Positive >80 High Positive Greater than or equal to 40 MPL is a risk factor for thrombosis and loss. For more information on this test, go to: http://education.MusicIP/faq/LQP100 Test Performed at: [facility] [address] [place] [address] JASWANT BARNES MD PHD Venous blood specimen (specimen) 09/08/2015 2:07 PM CDT 09/08/2015 2:11 PM CDT Aniceto Barker MD LAB - SEROLOGY ORDER ROSA Performing Organization Address [facility] de Phone Number [facility] * TSH HI LOW REFLEX FREE T4 (09/08/2015 2:07 PM CDT) Pathologist [facility] TSH 0.42 0.40 - 4.50 mIU/L [facility] Comment: Test Performed at: [employer] [address] SAAD HAMILTON DO,MPH 09/08/2015 2:07 PM CDT 09/08/2015 2:11 PM CDT Aniceto Barker MD LAB - CHEMISTRY ALFREDO YOUNGER Performing Organization Address [facility] de Phone Number [facility] * URIC ACID BLOOD (09/08/2015 2:07 PM CDT) [facility] Uric acid 3.3 2.5 - 7.0 mg/dL [facility] Comment: Therapeutic target for gout patients: <6.0 mg/dL Test Performed at: [facility] [address] SAAD HAMILTON DO,MPH Blood specimen (specimen) BLOOD SPECIMEN / Unknown 09/08/2015 2:07 PM CDT 09/08/2015 2:11 PM CDT Aniceto Barker MD LAB - CHEMISTRY ALFREDO YOUNGER Performing Organization Address [facility] Co de Phone Number [facility] * LUPUS ANTICOAGULANT PANEL W RFLX (09/08/2015 2:07 PM CDT) Pathologist [facility] Hexagonal Phase Confirmation Negative Negative [facility]) Comment: Test Performed at: [facility] [address] CADEN PEGUERO MD,PHD Plasma specimen (specimen) 09/08/2015 2:07 PM CDT 09/08/2015 2:11 PM CDT Aniceto Barker MD LAB - HEMATOLOGY ORD ERABLES Performing Organization Address [facility] de Phone Number [facility] * BETA-2 GLYCOPROTEIN 1 ANTIBODY IGG/IGM/IGA PANEL (09/08/2015 2:07 PM CDT) Beta-2 Glycoprotein 1 Antibody 1 IgG <9 <=20 SGU [facility] Beta-2 Glycoprotein 1 Antibody IgM <9 <=20 SMU [facility] Beta-2 Glycoprotein 1 Antibody IgA <9 <=20 ANABELLE [facility] Comment: The Antiphospholipid Antibody Syndrome (APS) is [...] more information on this test, go to http://education.MusicIP/faq/FGK081 Test Performed at: [facility]/[address] [address] CADEN PEGUERO MD,PHD Serum 09/08/2015 2:07 PM CDT 09/08/2015 2:11 PM CDT Aniceto Barker MD LAB - SEROLOGY ORDER ROSA Performing Organization Address [facility] de Phone Number [facility] * MEZA (SM) ANTIBODY EDGAR (09/08/2015 2:07 PM CDT) Only the most recent of2 resultswithin the time period is included. EDGAR Meza (SM) Antibody <1.0 NEG <1.0 NEG AI [facility] Comment: Test Performed at: [facility] [place] [address] [facility] [place] [address] SAAD HAMILTON DO,MPH Blood specimen (specimen) BLOOD SPECIMEN / Unknown 09/08/2015 2:07 PM CDT 09/08/2015 2:11 PM CDT Aniceto Barker MD LAB - CHEMISTRY ALFREDO YOUNGER Performing Organization Address [facility] de Phone Number [facility] * C-REACTIVE PROTEIN (09/08/2015 2:07 PM CDT) Only the most recent of2 resultswithin the time period is included. C-Reactive Protein <0.10 <0.80 mg/dL [facility] Comment: Please be advised that patients taking Carboxypenicillins may exhibit falsely decreased C-Reactive Protein levels due to an analytical interference in this assay. Test Performed at: [facility] [address] SAAD HAMILTON DO,MPH Blood specimen (specimen) BLOOD SPECIMEN / Unknown 09/08/2015 2:07 PM CDT 09/08/2015 2:11 PM CDT Aniceto Barker MD LAB - CHEMISTRY ALFREDO YOUNGER Performing Organization Address [facility] de Phone Number [facility] * RIBOSOMAL P PROTEIN ANTIBODY (09/08/2015 2:07 PM CDT) Ribosomal P Antibody <1.0 NEG <1.0 NEG AI [facility] Comment: Test Performed at: [employer] [address] [place] [address] SAAD HAMILTON DO,MPH 09/08/2015 2:07 PM CDT 09/08/2015 2:11 PM CDT Aniceto Barker MD LAB - CHEMISTRY ALFREDO YOUNGER Performing Organization Address [facility] de Phone Number [facility] * HISTONE ANTIBODY (09/08/2015 2:07 PM CDT) Only the most recent of2 resultswithin the time period is included. Histone Antibody <1.0 U [facility] Comment: Reference Ranges for Histone Antibodies: <1.0 Negative 1.0-1.5 Weak Positive 1.6-2.5 Moderate Positive >2.5 Strong Positive Test Performed at: [facility] [address] [place] [address] JASWANT BARNES MD PHD 09/08/2015 2:07 PM CDT 09/08/2015 2:11 PM CDT Aniceto Barker MD LAB - CHEMISTRY ALFREDO YOUNGER [facility] * COMPLEMENT TOTAL (09/08/2015 2:07 PM CDT) [facility] Complement Total CH50 58 31 - 60 U/mL [facility] Comment: Test Performed at: [employer] [address] [email or web address] [address] SAAD HAMILTON DO,MPH Blood specimen (specimen) BLOOD SPECIMEN / Unknown 09/08/2015 2:07 PM CDT 09/08/2015 2:11 PM CDT Aniceto Barker MD LAB - CHEMISTRY ALFREDO YOUNGER Performing Organization Address [facility] de Phone Number [facility] * DNA ANTIBODY DOUBLE STRANDED (09/08/2015 2:07 PM CDT) Only the most recent of3 resultswithin the time period is included. [facility] dsDNA Antibody <1 IU/mL [facility] Comment: IU/mL Interpretation < or = 4 Negative 5-9 Indeterminate > or = 10 Positive Test Performed at: [employer] [address] [employer] [address] SAAD HAMILTON DO,MPH Blood specimen (specimen) BLOOD SPECIMEN / Unknown 09/08/2015 2:07 PM CDT 09/08/2015 2:11 PM CDT Aniceto Barker MD LAB - HEMATOLOGY AMIE GRANDE [facility] * ALDOLASE (09/08/2015 2:07 PM CDT) Only the most recent of2 resultswithin the time period is included. Pathologist [facility] Aldolase 2.6 < OR = 8.1 U/L [facility] Comment: REPORT COMMENT: FASTING:YES Test Performed at: [place] [address] SAAD HAMILTON DO,MPH Blood specimen (specimen) BLOOD SPECIMEN / Unknown 09/08/2015 2:07 PM CDT 09/08/2015 2:11 PM CDT Aniceto Barker MD LAB - CHEMISTRY ALFREDO YOUNGER Performing Organization Address [facility] de Phone Number [facility] * CYCLIC CITRUL PEPTIDE AB IGG (CCP) (09/08/2015 2:07 PM CDT) Pathologist [facility] Cyclic Citrullinated Peptide Antibody <16 UNITS [facility] Comment: Reference Range Negative: <20 Weak Positive: 20-39 Moderate Positive: 40-59 Strong Positive: >59 Test Performed at: [place] [address] SAAD HAMILTON DO,MPH Blood specimen (specimen) BLOOD SPECIMEN / Unknown 09/08/2015 2:07 PM CDT 09/08/2015 2:11 PM CDT Aniceto Barker MD LAB - CHEMISTRY ALFREDO YOUNGER Performing Organization Address [facility] de Phone Number [facility] * ERYTHROCYTE SEDIMENTATION RATE (09/08/2015 2:07 PM CDT) Only the most recent of2 resultswithin the time period is included. Pathologist [facility] Erythrocyte Sedimentation Rate Westergren 4 < OR = 30 mm/h [facility] Comment: Test Performed at: [place] [address] SAAD HAMILTON DO,MPH Blood specimen (specimen) BLOOD SPECIMEN / Unknown 09/08/2015 2:07 PM CDT 09/08/2015 2:11 PM CDT Aniceto Barker MD LAB - HEMATOLOGY ORD [facility] * CBC W AUTO DIFFERENTIAL (09/08/2015 2:07 PM CDT) Only the most recent of2 resultswithin the time period is included. WBC 6.5 3.8 - 10.8 Thousand/u L [facility] RBC 4.58 3.80 - 5.10 Million/uL [facility] Hemoglobin 14.8 11.7 - 15.5 g/dL [facility] Hematocrit 44.5 35.0 - 45.0 % [facility] MCV 97.1 80.0 - 100.0 fL [facility] MCH 32.2 27.0 - 33.0 pg [facility] MCHC 33.2 32.0 - 36.0 g/dL [facility] RDW-CV 13.2 11.0 - 15.0 % [facility] Platelet 156 140 - 400 Thousand/u L [facility] MPV 10.8 7.5 - 11.5 fL [facility] Neutrophils Absolute 4,336 1,500 - 7,800 cells/uL [facility] Lymphocyte Absolute Manual 1,820 850 - 3,900 cells/uL [facility] Monocytes Absolute 293 200 - 950 cells/uL [facility] Eosinophils Absolute 26 15 - 500 cells/uL [facility]) Basophil Absolute Manual 26 0 - 200 cells/uL [facility] Neutrophils % 66.7 % [facility] Lymphocytes % 28.0 % [facility] Monocytes % 4.5 % [facility] Eosinophils % 0.4 % [facility] Basophil % 0.4 % [facility] Comment: Test Performed at: [facility] [place] [address] [place] [address] SAAD HAMILTON DO,MPH Blood specimen (specimen) BLOOD SPECIMEN / Unknown 09/08/2015 2:07 PM CDT 09/08/2015 2:11 PM CDT Aniceto Barker MD LAB - HEMATOLOGY ORD ERABLES [facility] * COMPLEMENT C4 (09/08/2015 2:07 PM CDT) Complement C4 24 16 - 47 mg/dL [facility] Comment: Test Performed at: [facility] [address] [place] [address] SAAD HAMILTON DO,MPH Blood specimen (specimen) BLOOD SPECIMEN / Unknown 09/08/2015 2:07 PM CDT 09/08/2015 2:11 PM CDT Aniceto Barker MD LAB - SEROLOGY ORDER ROSA [facility] * (ABNORMAL) COMPREHENSIVE METABOLIC PANEL (09/08/2015 2:07 PM CDT) Only the most recent of2 resultswithin the time period is included. Glucose 108(H) 65 - 99 mg/dL [facility] Comment: Fasting reference interval BUN 14 7 - 25 mg/dL [facility] Creatinine 0.81 0.50 - 0.99 mg/dL [facility] Comment: For patients >49 years of age, the reference limit for Creatinine is approximately 13% higher for people identified as -Micronesian. eGFR non- 78 > OR = 60 mL/min/1 .73m2 [facility] eGFR 90 > OR = 60 mL/min/1 .73m2 [facility] BUN/Creatinine Ratio NOT APPLICABLE 6 - 22 (calc) [facility] Sodium 139 135 - 146 mmol/L [facility]) Potassium 3.9 3.5 - 5.3 mmol/L [facility] Chloride 107 98 - 110 mmol/L [facility] CO2 22 19 - 30 mmol/L [facility] Calcium 9.6 8.6 - 10.4 mg/dL [facility] Protein Total 7.1 6.1 - 8.1 g/dL [facility]) Albumin 4.2 3.6 - 5.1 g/dL [facility] Globulin 2.9 1.9 - 3.7 g/dL (calc) [facility] Albumin/Globulin Ratio 1.4 1.0 - 2.5 (calc) [facility] Bilirubin Total 0.7 0.2 - 1.2 mg/dL [facility] Alkaline Phosphatase 60 33 - 130 U/L [facility] AST 20 10 - 35 U/L [facility] ALT 12 6 - 29 U/L [facility] Comment: Test Performed at: [employer] [facility] [place] [address] SAAD HAMILTON DO,MPH Blood specimen (specimen) BLOOD SPECIMEN / Unknown 09/08/2015 2:07 PM CDT 09/08/2015 2:11 PM CDT Aniceto Barker MD LAB - CHEMISTRY ALFREDO YOUNGER Performing Organization Address [facility]/ZIP Co de Phone Number [facility] * LDH BLOOD (09/08/2015 2:07 PM CDT) Pathologist [facility] LDH Total 147 120 - 250 U/L [facility] Comment: Test Performed at: [employer] [facility] [place] [address] SAAD HAMILTON DO,MPH Blood specimen (specimen) BLOOD SPECIMEN / Unknown 09/08/2015 2:07 PM CDT 09/08/2015 2:11 PM CDT Aniceto Barker MD LAB - CHEMISTRY ALFREDO YOUNGER [facility] * HEPATITIS B SURFACE ANTIGEN W RFLX CONFIRMATION (09/08/2015 2:07 PM CDT) Pathologist [facility] Hepatitis B Virus Surface Antigen NON-REACTI VE NON-REACT JULIET [facility] Comment: Test Performed at: [place] [address] SAAD HAMILTON DO,MPH Blood specimen (specimen) BLOOD SPECIMEN / Unknown 09/08/2015 2:07 PM CDT 09/08/2015 2:11 PM CDT Aniceto Barker MD LAB - CHEMISTRY ALFREDO YOUNGER Performing Organization Address [facility] Phone Number [facility] * CK BLOOD (09/08/2015 2:07 PM CDT) Only the most recent of2 resultswithin the time period is included. CK Total 71 29 - 143 U/L [facility] Comment: Test Performed at: [employer] [id number] [address] SAAD HAMILTON DO,MPH Blood specimen (specimen) BLOOD SPECIMEN / Unknown 09/08/2015 2:07 PM CDT 09/08/2015 2:11 PM CDT Aniceto Barker MD LAB - CHEMISTRY ALFREDO YOUNGER Performing Organization Address [facility] Phone Number [facility] * COMPLEMENT C3 (09/08/2015 2:07 PM CDT) Complement C3 108 90 - 180 mg/dL [facility] Comment: Test Performed at: [employer] [address] [employer] [address] SAAD HAMILTON DO,MPH Blood specimen (specimen) BLOOD SPECIMEN / Unknown 09/08/2015 2:07 PM CDT 09/08/2015 2:11 PM CDT Aniceto Barker MD LAB - CHEMISTRY ALFREDO YOUNGER Performing Organization Address [facility] de Phone Number [facility] * XR FOOT RIGHT 3VW OR MORE [...] electronically signed by HAM BENZ MD on 08/21/2015 5:55 PM . Narrative 08/21/2015 5:55 [...] slightly decreased. The soft tissues are normal. A fourth proximal interphalangeal joint is held in flexion on all of the images, which may represent a flexion contracture. Right foot: There is no fracture or dislocation. The joint spaces are normal. No erosions are present. Bone mineralization is mildly decreased. The soft tissues are normal. A moderate plantar calcaneal spur [...] electronically signed by HAM BENZ MD on 08/21/2015 5:55 PM . Narrative 08/21/2015 5:55 [...] slightly decreased. The soft tissues are normal. A fourth proximal interphalangeal joint is held in flexion on all of the images, which may represent a flexion contracture. Right foot: There is no fracture or dislocation. The joint spaces are normal. No erosions are present. Bone mineralization is mildly decreased. The soft tissues are normal. A moderate plantar calcaneal spur [...] electronically signed by HAM BENZ MD on 08/21/2015 5:55 PM . Narrative 08/21/2015 5:55 [...] slightly decreased. The soft tissues are normal. A fourth proximal interphalangeal joint is held in flexion on all of the images, which may represent a flexion contracture. Right foot: There is no fracture or dislocation. The joint spaces are normal. No erosions are present. Bone mineralization is mildly decreased. The soft tissues are normal. A moderate plantar calcaneal spur [...] electronically signed by HAM BENZ MD on 08/21/2015 5:55 PM . Narrative 08/21/2015 5:55 [...] slightly decreased. The soft tissues are normal. A fourth proximal interphalangeal joint is held in flexion on all of the images, which may represent a flexion contracture. Right foot: There is no fracture or dislocation. The joint spaces are normal. No erosions are present. Bone mineralization is mildly decreased. The soft tissues are normal. A moderate plantar calcaneal spur [...] electronically signed by HAM BENZ MD on 08/21/2015 5:55 PM . Narrative 08/21/2015 5:55 [...] slightly decreased. The soft tissues are normal. A fourth proximal interphalangeal joint is held in flexion on all of the images, which may represent a flexion contracture. Right foot: There is no fracture or dislocation. The joint spaces are normal. No erosions are present. Bone mineralization is mildly decreased. The soft tissues are normal. A moderate plantar calcaneal spur [...] sclerosis is noted at L5-S1. Procedure Note aHm Benz MD - 07/05/2017 Exam: XR HAND [...] ANTIBODY DS CRITHIDIA IFA (03/02/2013 12:06 PM TEST RACK OPERATOR) Only the most recent of2 resultswithin the time period is included. dsDNA Antibody Crithidia IFA POSITIVE( A) NEGATIVE [facility] Comment: This test was developed and its performance characteristics have been determined by [facility]. It has not been cleared or approved by the U.S. Food and Drug Administration. The FDA has determined that such clearance or approval is not necessary. Performance characteristics refer to the analytical performance of the test. dsDNA Antibody Crithidia Titer 1:40(H) <1:10 [facility]) Comment: Test Performed at: [facility] [address] [place] [address] JASWANT BARNES MD PHD 03/02/2013 12:0 6 PM TEST RACK OPERATOR 03/02/2013 12:08 PM TEST RACK OPERATOR Aniceto Barker MD LAB - SEROLOGY ORDER ROSA [facility]) * THYROID PEROXIDASE ANTIBODY (03/02/2013 12:06 PM TEST RACK OPERATOR) Only the most recent of2 resultswithin the time period is included. Thyroid Peroxidase TPO Antibody <10 <35 IU/mL [facility]) Comment: Test Performed at: [facility] [place] [address] [place] [address] SAAD HAMILTON DO,MPH 03/02/2013 12:0 6 PM TEST RACK OPERATOR 03/02/2013 12:08 PM TEST RACK OPERATOR Aniceto Barker MD LAB - CHEMISTRY ALFREDO YOUNGER Performing Organization Address [facility] Co de Phone Number [facility]) * THYROGLOBULIN ANTIBODY (03/02/2013 12:06 PM TEST RACK OPERATOR) Pathologist [facility] Thyroglobulin Antibody <20 <20 IU/mL [facility]) Comment: Test Performed at: [facility] [place] [address] [place] [address] SAAD HAMILTON DO,MPH Venous blood specimen (specimen) 03/02/2013 12:06 PM TEST RACK OPERATOR 03/02/2013 12:08 PM TEST RACK OPERATOR Aniceto Barker MD LAB - CHEMISTRY ALFREDO YOUNGER Performing Organization Address [facility] de Phone Number [facility]) * LAB HISTORICAL RESULTS-ONBASE (02/26/2013) Only the most recent of3 resultswithin the time period is included. 02/26/2013 Narrative [facility] - 03/01/2013 9:29 AM TEST RACK OPERATOR Historical Provider LAB - CHEMISTRY Yaniv VALDEZ Performing Organization Address [facility] de Phone Number [facility] [address] * [place] BLOOD SCREEN W/REFLEX TITER (09/02/2012 9:39 AM CDT) [place] Screen NEGATIVE NEGATIVE [facility] ([facility]) Comment: REPORT COMMENT: COPY TO PATIENT; COPY TO PCP, RADHA ENRIQUEZ, FAX:[phone] Test Performed at: [facility] [place] [address] [facility] [place] [address] SAAD HAMILTON DO,MPH 09/02/2012 9:39 AM CDT 09/02/2012 9:41 AM CDT Narrative [facility] ([facility]) - 09/03/2012 2:00 PM CDT Copy to patient Copy to PCP, Radha Enriquez, fax:[phone] Aniceto Barker MD LAB - CHEMISTRY ALFREDO YOUNGER Performing Organization Address City/[facility] Co de Phone Number [facility] * SS-B (SJOGRENS'S) ANTIBODY (09/02/2012 9:39 AM CDT) Sjogren's Antibodies (SSB) <1.0 NEG <1.0 NEG AI [facility]) Comment: REPORT COMMENT: COPY TO PATIENT; COPY TO PCP, RADHA ENRIQUEZ, FAX:[phone] Test Performed at: [facility] [id number] [address] SAAD HAMILTON DO,MPH Venous blood specimen (specimen) 09/02/2012 9:39 AM CDT 09/02/2012 9:41 AM CDT Narrative [facility]) - 09/03/2012 12:00 PM CDT Copy to patient Copy to PCP, Radha Enriquez, fax:[phone] Aniceto Barker MD LAB - CHEMISTRY ALFREDO YOUNGER Performing Organization Address [facility]/ZIP Pa de Phone Number [facility]) * SS-A (SJOGREN'S) ANTIBODY (09/02/2012 9:39 AM CDT) Sjogren's Antibodies (SSA) <1.0 NEG <1.0 NEG AI [facility]) Comment: Test Performed at: [facility] [address] [address] SAAD HAMILTON DO,MPH Venous blood specimen (specimen) 09/02/2012 9:39 AM CDT 09/02/2012 9:41 AM CDT Narrative [facility]) - 09/03/2012 12:00 PM CDT Copy to patient Copy to PCP, Radha Enriquez, fax:[phone] Aniceto Barker MD LAB - CHEMISTRY ALFREDO YOUNGER Performing Organization Address [facility]/ZIP Co de Phone Number [facility]) * SCLERODERMA 70 (SCL) ANTIBODY (09/02/2012 9:39 AM CDT) EDGAR SCL-70 Antibody <1.0 NEG <1.0 NEG AI [facility]) Comment: Test Performed at: [facility] [employer] [id number] [employer] [place] [address] SAAD HAMILTON DO,MPH 09/02/2012 9:39 AM CDT 09/02/2012 9:41 AM CDT Narrative [facility]) - 09/03/2012 12:00 PM CDT Copy to patient Copy to PCP, Radha Enriquez, fax:[phone] Aniceto Barker MD LAB - CHEMISTRY ALFREDO YOUNGER Performing Organization Address [facility] de Phone Number [facility] * TSH (09/02/2012 9:39 AM CDT) Only the most recent of2 resultswithin the time period is included. Pathologist [facility] TSH 1.07 0.40 - 4.50 mIU/L [facility]) Comment: REPORT COMMENT: COPY TO PATIENT; COPY TO PCP, RADHA ENRIQUEZ, FAX:[phone] Test Performed at: [facility] [employer] [id number] [employer] [facility] [address] SAAD HAMILTON DO,MPH Venous blood specimen (specimen) 09/02/2012 9:39 AM CDT 09/02/2012 9:41 AM CDT Narrative [facility]) - 09/03/2012 6:00 AM CDT Copy to patient Copy to PCP, Radha Enriquez, fax:[phone] Aniceto Barker MD LAB - CHEMISTRY ALFREDO YOUNGER Performing Organization Address [facility]/ZIP Co de Phone Number [facility]) * T3 FREE DIALYSIS LC/MS (11/05/2011 3:28 PM CDT) Pathologist [facility] T3 Free 223 210 - 440 pg/dL [facility]) Comment: Reference Ranges for Free T3: 200 - 380 pg/dL (all trimesters) T3 Total 89 76 - 181 ng/dL [facility]) Comment: Test Performed at: [facility] [address] [place], [place] KAI CAMARILLO MD 11/05/2011 3:28 PM CDT 11/05/2011 3:32 PM CDT Jose Boone MD LAB - CHEMISTRY ORD ERABLES [facility]) * T4 FREE DIRECT DIALYSIS (11/05/2011 3:28 PM CDT) T4 Free Direct Dialysis 2.6 0.8 - 2.7 ng/dL [facility]) Comment: Test Performed at: [facility] [address] KAI CAMARILLO MD 11/05/2011 3:28 PM CDT 11/05/2011 3:32 PM CDT Jose Boone MD LAB - CHEMISTRY ORD ERABLES [facility]) Care Teams Plug Cutting Machine Operator Relationship Specialty Start Date End Date Radha Enriquez DO [address] [address] PCP - General Internal Medicine 04/10/16
--- OUTSIDE RECORDS SUMMARY | 2024-05-19 10:26 | XMS_ITS | Clinical Summary ---
Author Organization [facility] Address [address] [place] [address] Care Team Providers Care Collar Packer Name Role Phone Tee Chung DO Primary Care Provider [phone] Source Comments [facility],non-owned Affiliates and Associated Physician Practices is amultiple site organization consisting of ambulatory clinics and hospital sitesin [place], [place], [place] and [place]. This disclosure is being madepursuant to the Care Everywhere program and may not contain all information available regarding this patient. Last updated 17.[facility] Allergies Active Allergy Reactions Criticality Noted Date [...] PM CDT Pulse 71 05/18/2019 12:50 PM MOLD MAINTENANCE TECHNICIAN Temperature 36.4 C (97.6 F) 09/27/2022 1:17 PM CDT Respiratory Rate 16 04/26/2018 2:26 PM MOLD MAINTENANCE TECHNICIAN Oxygen Saturation 96% 05/18/2019 12:50 PM MOLD MAINTENANCE TECHNICIAN Inhaled Oxygen Concentration - - Weight 58.8 [...] LIPID TESTING 1950 MAMMOGRAM 1950 MEDICARE AWV 12 MONTHS 1950 DTAP/TDAP/TD VACCINES (1 - [...] Quantitative <15 NOT DETECTED <15 IU/mL [facility]) Hepatitis C Virus RNA Log IU/mL <1.18 NOT DETECTED <1.18 Log IU/mL [facility] ([facility]) Comment: Please note: There are [...] to the current Treatment Guidelines (J Hepatol, 6498-6089, ). Please correlate these findings with the patient's clinical history and any other diagnostic findings, including any evidence of liver dysfunction. See Note [facility] ([facility]) Comment: The analytical performance characteristics of this assay have been determined by [employer]. The modifications have not been cleared or approved by the FDA. This assay has been validated pursuant to the CLIA regulations and is used for clinical purposes. This test was performed using the ROMA(R)AmpliPrep/ ROMA(R)TaqMan(R)HCV Test,v2.0. For more information on this test, go to: http://education.[employer]/faq/STS33x9 (This link is being provided for informational/ educational purposes only.) Test Performed at: [facility] [address] [place] [address] SAAD HAMILTON DO,MPH 09/08/2015 2:07 PM CDT 09/08/2015 2:11 PM CDT Aniceto Barker MD LAB - CHEMISTRY ALFREDO YOUNGER [facility]) from Last 3 Months or Most Recently Relevant to Health Maintenance Care Teams Collar Packer Relationship Specialty Start Date End Date Tee Chung DO [address] [place] [address] PCP - General Internal Medicine 04/10/16
--- OUTSIDE RECORDS SUMMARY | 2024-05-19 10:26 | XMS_ITS | Referral Summary ---
Author Organization [facility] Address [address] [place] [address] Phone Care Team Providers Care Religious Education Director Name Role Phone Juan Davis MD Unavailable [phone] No, Physician Primary Care Provider [phone] Allergies Active Allergy Reactions Criticality Noted Date [...] 06/03/2019 Assessment & Plan (06/03/2019 5:12 PM SOFTWARE DEVELOPMENT LEADER): Start Ocusoft eyelid wipes + hypochlorous eyelid spray BID both eyes (OU). Recommend PFATs BID+. Start Azasite - apply to the eyelid margins BID both eyes (OU). RTC 2 mo f/u. Dermatochalasis of both upper eyelids 06/03/2019 Assessment & Plan (06/03/2019 5:15 PM SOFTWARE DEVELOPMENT LEADER): Status post (s/p) bilateral blepharoplasty in 2007. Pt not bothered with appearance at this time. Pt ed re: option for referral to plastics. Age-related nuclear cataract of both eyes 2019 Assessment & Plan (06/03/2019 5:16 PM SOFTWARE DEVELOPMENT LEADER): Defer cataract surgery until signs and symptoms [...] on file Legal Sex Female 1:00 AM SOFTWARE DEVELOPMENT LEADER Gender Identity Female 12/12/2020 6:03 PM CDT [...] Bone mineral density was performed on a [employer] Discovery Densitometer. Based on machine cross-calibration and [...] by the International Society of Clinical Densitometry. [id number] Zheng Alvarado MD IMG DXA PROCEDURES Final Result from Last 3 Months or Most Recently Relevant to Health Maintenance Insurance MEDICARE [facility] MEDICARE [facility] MEDICARE Care Teams Religious Education Director Relationship Specialty Start Date End Date No, Physician PCP - General 01/15/24 Juan Davis MD [address] [facility] [address] [place] [address] Consulting Physician Rheumatology 07/23/18
--- OUTSIDE RECORDS SUMMARY | 2024-05-19 10:27 | XMS_ITS | Clinical Summary ---
Author Organization [facility] Address [address] [place] [address] Phone Care Team Providers Care Inside Contractor Sales Name Role Phone SheldonTee Primary Care Provider [phone] Allergies Active Allergy Reactions Criticality Noted Date [...] on file Legal Sex Female 1:09 PM ADDRESS CHANGE CLERK Gender Identity Not on file Sexual Orientation Not on file Occupation Industry Job Start Date Job End Date Not on file Not on file Not on file Not on file Last Filed Vital Signs Vital Sign Reading Time Taken Comments Blood Pressure 90/54 03/09/2014 11:00 AM ADDRESS CHANGE CLERK Pulse 58 03/09/2014 11:00 AM ADDRESS CHANGE CLERK Temperature 36.1 C (97 F) 03/09/2014 11:00 AM ADDRESS CHANGE CLERK Respiratory Rate 18 03/09/2014 11:0 0 AM ADDRESS CHANGE CLERK Oxygen Saturation 97% 03/09/2014 11: 00 AM ADDRESS CHANGE CLERK Inhaled Oxygen Concentration - - Weight 56.2 kg (123 lb 12.8 oz) 03/09/2014 7:19 AM ADDRESS CHANGE CLERK Height 165.1 cm (5' 5 ) 03/04/2014 12:3 8 PM ADDRESS CHANGE CLERK Body Mass Index 20.6 03/04/2014 12:38 PM ADDRESS CHANGE CLERK Plan of Treatment Health Maintenance Due Date [...] 09/27/2027 Insurance MEDICARE PART A AND B [facility] Advance Directives For more information, please contact: [phone] * Full Code (Latest Code Status on File) Date Activated Date Inactivated Comments 03/09/2014 8:53 AM 03/09/2014 1:14 PM * Full Code Date Activated Date Inactivated Comments 03/09/2014 8:17 AM 03/09/2014 8:53 AM * Full Code Date Activated Date Inactivated Comments 03/09/2014 7:21 AM 03/09/2014 8:17 AM Care Teams Inside Contractor Sales Relationship Specialty Start Date End Date Tee Chung DO [address] [id number] PCP - General Internal Medicine 02/25/14
--- OUTSIDE RECORDS SUMMARY | 2024-05-19 10:27 | XMS_ITS | CONTINUITY OF CARE DOCUMENT ---
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 Shaggy Edward Hypoxia active Shaggy Edward Goiter active Shaggy Edward Blueish discoloration, L hand active Shaggy Edward Chronic venous hypertension with inflammation b/l active Humberto Platt MD Claudication Intermittent completed 04/24 - Humberto Platt MD Weakness active Humberto Platt MD Varicose veins active Humberto Platt MD Fatigue active Humberto Platt MD Snoring completed - Humberto Platt MD Chest pain completed - Humberto Platt MD Tricuspid regurgitation, mild active Humberto Platt MD Gastritis active Humberto Platt MD Shortness of breath active Shaggy adams Hepatitis C - treated active Humberto Platt MD Tobacco abuse active Humberto Platt MD Rheumatoid factor, positive active Humberto gunderson MD Peripheral edema active Humberto Platt MD Palpitations completed - Humberto Platt MD Dizziness and near syncope active Jayla Villaseñor Near syncope completed - Humberto Platt MD ENCOUNTERS Date Type Provider Location Encounter Diag nosis - In-person encounter Office Visit Humberto Platt MD [facility] - In-person encounter Office Visit Humberto Platt MD [place] Groin pain - In-person encounter Office Visit Humberto Platt MD [facility] Dizziness and near syncopeMigraineBreast swelling - In-person encounter Office Visit Humberto Platt MD [place] - In-person encounter Office Visit Humberto Platt MD [facility] - In-person encounter Office Visit Humberto Platt MD [facility] Shortness of breathBlueish discoloration, L handGoiterHypoxiaCompression of R common/external iliac vein S/P stent 05/2019 - In-person encounter Office Visit Humberto Platt MD [facility] Claudication IntermittentChronic venous hypertension with inflammation b/l - In-person encounter Office Visit Humberto Platt MD [place] Dizziness and near syncopePalpitationsShortness of breathChest painVaricose veinsWeakness - In-person encounter Office Visit Humberto Platt MD [facility] Near syncopeGastritisSnoring - In-person encounter Office [...] blood pressure, diastolic 78 mm[Hg] Ky apryl [place] blood pressure, systolic 108 mm[Hg] Kyl ia [place] oxygen saturation, oximetry 96 % Cecilioblanca [place] pulse rate 72 /min Cecilioblanca [place] respiratory rate E&M 12 /min Balaji Regalado yesica weight E&M 143 [lb_av] [facility], cuff size regular [place] apryl [place] height E&M 65 [in_i] [facility] Body Mass Index (Ratio) 21.53 kg/m2 Lise [...] blood pressure, diastolic 73 mm[Hg] Ca therine [place] blood pressure, systolic 107 mm[Hg] Cat herine [place] oxygen saturation, oximetry 92 % Lata Abilio respiratory rate E&M 14 /min Gabriela deluna Abilio pulse rate 71 /min Lata Abilio weight E&M 131 [lb_av] Lata [place] blood pressure, cuff size regular Vandana Camp [...] Villaseñor blood pressure, resting No Vimal ty [place] blood pressure, cuff size regular Kr isty [place] oxygen saturation, oximetry 98 % Gewn Arron respiratory rate E&M 18 /min Gwen [place] pulse rate 70 /min Gwen Arron blood pressure, diastolic 60 mm[Hg] Kr isty Arron blood pressure, systolic 100 mm[Hg] Kri sty [place] weight E&M 122 [lb_av] Gwen Arron height E&M 65 [in_i] Gwen Arron Body Mass Index (Ratio) 20.80 kg/m2 [facility] blood pressure, resting No Vimal ty Arron blood pressure, cuff size regular Kr isty Arron pulse rate 69 /min Gwen [place] oxygen saturation, oximetry 99 % Gwen [place] blood pressure, diastolic 70 mm[Hg] Kr isty Arron blood pressure, systolic 120 mm[Hg] Kri sty [place] respiratory rate E&M 19 /min Gwen Arron weight E&M 125 [lb_av] Gwen Arron height E&M 65 [in_i] Gwen [place] Body Mass Index (Ratio) 19.67 kg/m2 Tesfaye [facility] blood pressure, diastolic 60 mm[Hg] Kr isty [place] blood pressure, systolic 110 mm[Hg] Kri sty [place] pulse rate 64 /min Gwen [place] oxygen saturation, oximetry 98 % Gwen Cast [...] Amna Tushar blood pressure, diastolic 70 mm[Hg] Oh nicole Tushar blood pressure, systolic 102 mm[Hg] [...] Amna Finley blood pressure, diastolic 81 mm[Hg] Oh nicole Finley blood pressure, systolic 109 mm[Hg] Archana [place] pulse rate 60 /min Amna Finley oxygen saturation, oximetry 98 [...] Not Estab. platelet count 190 X10E3/UL [employer] [phone]/12/ 27 red blood cell distribution width 13.2 [...] mg capsule,delayed release(DR/EC) active once a day Blaaji Martinez sumatriptan succinate 100 mg tablet active [...] Danyel Oliveira smoking, date started 1972 Tosha Oliveira smoking history, tot al pack/year 50 Danyel [...] smoking history, tot al pack/day 1/2 Gwen Arron cigarette use yes Gwen Castby smoking status [...] Payer name Policy type / Coverage type [place] [employer] party ID AARP [place] insurance [employer] [id number] [place] MED[place] Medicare [id number] ADVANCE DIRECTIVES Name Date DISCUSSED - NO DECISION MADE TREATMENT PLAN Date Name Performer [id number],S, S CHRISLY ENCOURAGED TO STOP SMOKING; SMOKING CESSATION TECHNIQUES DISCUSSED. Jayla Villaseñor [id number],C,P t complains of pain in both groins, she is concerned that it is related to venous iliac stents. Will obtain venous duplex and echo Jayla Villaseñor [id number],C,P t has multiple non cardiac problemns inclduing back pain, rotator cuff tear, breast swelling, constipation. She is now scheduled for mammogram with PCP. Jayla Villaseñor [id number],C, S till has some dizziness. However reports midodrine was stopped due to hypertension. Jayla Villaseñor [id number],C, Will see Dr. Tolliver for migraine, Dr. Ebenezer Olmos for rheumatology, and she will be seen at neurosurgery clinic for her back pain. Jayla Calvillomellisa [id number],C, She has chronic venous insufficiency, but does not want Venaseal at this time. Jayla Stevensmariajose [id number],C,P t has multiple non cardiac problemns inclduing back pain, rotator cuff tear, breast swelling, constipation. Jayla Stevensmariajose [id number],S, S TRONGLY ENCOURAGED TO STOP SMOKING; SMOKING CESSATION TECHNIQUES DISCUSSED. Humberto Platt MD [id number],C,A pparenty had L upper ex rotator cuff tear, may or may not surgery, will need to come off plavix if she needs it Anni Rodriguez MD [id number],S,B ilateral illiac vein stenting, residual leg edema. Will venaseal after discusses with GV per his note Anni Rodriguez MD [id number],B,T he pt did not take the Florinef b/c she is undergoing workup for renal insufficiency. Was started on Midodrine with very good improvement of her dizziness. Myoview scan was normal. Jayla Villaseñor [id number],C,No complaints of excessive fatigue Jayla Villaseñor [id number],C, Will obtain venous duplex, as the last test was done in 2019. Based on the results will schedule Venaseal. Jayla Villaseñor [id number],C, She complains of some tightness in the abdomen and in the chest. Will monitor the tightness; if it persists, will schedule a cardiac cath. Jayla Villaseñor [id number],C,T he pt did not take the Florinef [...] that is going to be evaluated at [facility]. Shaggy [facility] Cardiology:She chron ic venous insufficiency and is S/P R iliac vein stenting last year. Shaggy [facility] Cardiology:She chron ic venous insufficiency and is S/P R iliac vein stenting last year. We will consider venous ablation after her current workup. Shaggy [facility] Cardiology:Developed blueish discoloration of the L hand. We will schedule upper extremity arterial and venous duplexes. Shaggy [facility] Cardiology:She repor ts she developed an episode of SOB while sitting down and noted her O2 sat was down in the 80's. Also developed blueish discoloration of the L hand. We will schedule stress myoview, echo, and CT angio PE protocol. Shaggy [facility] Cardiology:She repor ts she developed an episode of SOB while sitting down and noted her O2 sat was down in the 80's. Also developed blueish discoloration of the L hand. We will schedule stress myoview, echo and CT angio PE protocol. Shaggy [facility] Cardiology:Venous du plex showed venous insufficiency of the GSV bilaterally. Continues to have significant leg swelling and heaviness, worse in the left leg (CEAP C3). She has been using compression stockings with only partial relief. She would like to proceed with venogram with IVUS imaging to evaluate May-Thurner. Afterwards, we will consider venous ablation. Shaggy [facility] Cardiology:Venous du plex showed venous insufficiency of [...] an undiagnosed muscle atrophy condition, evaluated at [facility]. Humberto Platt MD Cardiology follow up :Orders: C omplete Echo (CPT-61262) Humberto Platt MD Cardiology follow up :Orders: A rterial Duplex Bi-Lower EX (CPT-23692) Humberto Platt MD Cardiology follow up :She has varicose veins and leg edema associated with heaviness, worsening throughout the day. Orders: C omplete Echo (CPT-93384) V enous Doppler Bilateral LE - Reflux (CPT-10332) Humberto Platt MD Cardiology:PFT's showed minimal COPD. Humberto Platt MD Cardiology:Myoview scan was nega tive for ischemia. Humberto Platt MD Cardiology:Per Dr. Neves. Humberto Platt MD Cardiology:Carotid d uplex was normal. Telesentry was essentially normal. [facility] Cardiology: 6 Echo: Normal appearing tricuspid valve leaflets. There is mild tricuspid regurgitation. IVC is normal in size with normal respiratory response. Estimated peak pulmonary artery systolic pressure is 27. [facility] Cardiology:STRONGLY ENCOURAGED TO STOP SMOKING; SMOKING CESSATION TECHNIQUES DISCUSSED. [facility] Cardiology:Telesentry was essent ially normal. [facility] Cardiology:Telesentry was essent ially normal. [facility] Cardiology:Venous du plex was negative for DVT or venous insufficiency. [facility] Cardiology:Pt compla ins of a dry mouth when she sleeps, snoring, morning headaches, frequent awakenings and fatigue. Will obtain a home sleep study. Shaggy [facility] Cardiology:Pt compla ins of a dry mouth when she sleeps, snoring, morning headaches, frequent awakenings and fatigue. Will obtain a home sleep study. [facility] Cardiology:Pt compla ins of a feeling of acidity in her mouth and a sensation of chest discomfort. I recommend a GI consult. [facility] Cardiology:Pt compla ins of SOB. Will obtain myoview scan and PFT's. [facility] Cardiology:Pt compla ins of SOB, a feeling of acidity in her mouth and a sensation of chest discomfort. Will obtain myoview scan. In addition, I recommend a GI consult. [facility] Cardiology:STRONGLY ENCOURAGED TO STOP SMOKING; SMOKING CESSATION TECHNIQUES DISCUSSED. Humberto Platt MD Cardiology:Orders: V enous Doppler Bilateral LE - Standing (CPT-54207) Humberto Platt MD Cardiology:She has r ecurrent [...] LE - Reflux Complete Echo DLCO - 21129 FRC - 00217 FVC - 29915 STR - Adenosine Sleep Study Home Mobile [...] completed EKG Humberto Platt MD completed SNOMED-CT: 453678421 Smoking Cessation Counseling Humberto Platt MD completed SNOMED-CT: 293907970 617390 Current Medications Documented Humberto Platt MD completed Stress EKG Jose Miguel Randle MD complet ed Regadenoson, 4 units Humberto Platt MD completed Cardiolite, 2 units Humberto Platt MD c ompleted SPECT Images Jose Miguel Randle MD compl eted FVC - 81043 Humberto Platt MD completed FRC - 20702 Humberto Platt MD completed DLCO - 61669 Humberto Platt MD complete d SNOMED-CT: 578225636 Smoking Cessation Counseling Humberto Platt MD completed SNOMED-CT: 798762812 011623 Current Medications Documented Humberto Platt MD completed Event Monitor Humberto Platt MD complet ed SNOMED-CT: 000617534 Smoking Cessation Counseling Humberto Platt MD completed EKG Humberto Platt MD completed SNOMED-CT: 901491525 271034 Current Medications Documented Humberto Platt MD completed
--- OUTSIDE RECORDS SUMMARY | 2024-05-19 10:27 | XMS_ITS | Clinical Summary ---
Author Organization [facility] Address [address] [place] [address] Care Team Providers Care [employer] Faculty Member Name Role Phone Unavailable Primary Care Provider [...]
--- OUTSIDE RECORDS SUMMARY | 2024-05-19 10:27 | XMS_ITS | Patient Health Record ---
Author Organization [facility] Address [address] [place] [id number] Care Team Providers Care Experimental Mechanic Space[employer] Name Role Phone [place] Primary Care Provider UnavailDr. Leandro Dahl Unavailable [phone] Iris Carey Unavailable Unavailable [employer], Provider Unavailable [...] Notes Problem Degeneration of cervical intervertebral disc (06629536) Other cervical disc degeneration, unspecified cervical region (M50.30) Active confirmed Problem Cervicalgia (08110431) Cervicalgia (M54.2) Active confirmed Problem Pain in limb (03113733) Pain in unspecified limb (M79.609) Active confirmed Problem Paresthesia (finding) (89540134) Paresthesia of skin (R20.2) Active confirmed Encounters Encounter Location Date Provider Diagnosis [facility] [address] [place] [address] 09/20/2023 Provider ZZ-Migration [facility] [address] [place] [address] 07/02/2023 Leandro Curran Other cervical disc degeneration, unspecified cervical region M50.30 ; Cervicalgia M54.2 ; Pain in unspecified limb M79.609 and Paresthesia of skin R20.2 [facility] [address] [place] [address] 07/02/2023 Leandro Curran [facility] [address] [place] [address] 07/03/2023 Leandro Curran Assessments Encounter Date Diagnosis [...] Coverage Start Date Coverage End Date [employer] (Medicare) Attention Claims [address] [place] [phone] [id number] Geovanna Sarmiento Self - patient is the insured AARP Medicare Advantage from [facility] [address] [address] [place] [address] [id number] Geovanna Sarmiento Self - patient is the insured
== END 2024-05-19 09:36 | disposition home or self-care (01) ==
PROVIDERS: PCP Nurse Practitioner; Visit Provider Nurse Practitioner
DX: J18.9 Pneumonia, unspecified organism (principal)
CPT/HCPCS: 71046

== ENCOUNTER 2025-02-16 12:33 | Outpatient (CLI) | payer MEDICARE, SELFPAY ==
--- NOTE | ~2025-02-16 | MR_ITS ---
EXAMINATION: MR cervical spine wo con DATE: 02/16/2025 13:51 INDICATION: Neck and back pain TECHNIQUE: Magnetic resonance imaging (MRI) of the cervical spine was performed without intravenous contrast. Sequences included sagittal T2-weighted FSE, sagittal T2-weighted FS FSE, sagittal T1-weighted FSE, axial MERGE, and axial T2-weighted FSE. COMPARISON: None FINDINGS: Degenerative changes are present throughout the cervical spine involving disc spaces, uncovertebral joints and pedicles. No acute or aggressive bony or soft tissue process seen. No discrete medullary cord lesions or gross myelopathic changes. Visualized portions of the posterior fossa unremarkable. Level specific findings as follows: C2-3: Mild degenerative change C3-4: Mild to moderate right and mild left-sided neural foraminal narrowing. Mild to moderate posterior spondylosis but no spinal canal stenosis or discrete disc protrusion. C4-5: Moderately severe posterior disc osteophyte complex with borderline spinal canal stenosis; AP diameter of the spinal canal is approximately 8 mm and there is deformity of the ventral aspect of the spinal cord. No discrete disc protrusion. Mild to moderate bilateral neural foraminal narrowing left worse right. C5-6: No spinal canal stenosis or discrete disc protrusion. Moderate right and mild to moderate left-sided neural foraminal narrowing. C6-7: Mild degenerative changes. 7 mm arachnoid cyst the right neural foramen. Mild to moderate right and mild left-sided neural foraminal narrowing. No spinal canal stenosis or discrete disc protrusion. C7-T1: Mild degenerative changes. Partially visualized on the sagittal images only, 9 mm arachnoid cyst in the left neural foramen at T2-3. IMPRESSION: 1. Multilevel degenerative changes as detailed above. 2. No acute or aggressive bony or soft tissue process seen. The cervical spinal cord is normal in signal. Reviewed, dictated and finalized at location A. A SALES CONSULTANT
--- NOTE | ~2025-02-16 | MR_ITS ---
EXAMINATION: MR thoracic spine wo con DATE: 02/16/2025 13:52 INDICATION: TECHNIQUE: Magnetic resonance imaging (MRI) of the thoracic spine was performed without intravenous contrast. Sagittal localizer T1-weighted FSE of the cervical spine was obtained. Thoracic spine sequences included sagittal T2-weighted FSE, sagittal T1-weighted FSE, sagittal T2-weighted FS FSE, and axial T2-weighted FSE. COMPARISON: None FINDINGS: Mild degenerative changes throughout the thoracic spine as well as mild kyphotic changes. No spinal canal stenosis or discrete disc protrusion within the thoracic spine. The thoracic spinal cord is normal in signal with no discrete medullary cord lesions or gross myelopathic changes. Prominent nerve root sheaths or arachnoid cysts are seen at several levels. The largest measures approximately 10 mm at the level of T6-7. IMPRESSION: 1. Multilevel degenerative changes with no spinal canal stenosis or discrete disc protrusion. 2. Normal cord signal within the thoracic spine. 3. Incidental finding of benign subcentimeter arachnoid cysts at several levels. Reviewed, dictated and finalized at location A. RESSIVE CARE UNIT REGISTERED NURSE IMPRESSION: 1. Multilevel degenerative changes with no spinal canal stenosis or discrete di sc protrusion. 2. Normal cord signal within the thoracic spine. 3. Incidental finding of benign subcentimeter arachnoid cysts at several levels .
== END 2025-02-16 12:34 | disposition home or self-care (01) ==
LOC: GOSHIMG 12:34
PROVIDERS: PCP Nurse Practitioner Family; Visit Provider Nurse Practitioner Family
DX: M47.814 Spondylosis without myelopathy or radiculopathy, thoracic region (principal); M47.812 Spondylosis without myelopathy or radiculopathy, cervical region; M47.813 Spondylosis without myelopathy or radiculopathy, cervicothoracic region; G96.191 Perineural cyst; M54.12 Radiculopathy, cervical region
CPT/HCPCS: 72141; 72146

== ENCOUNTER 2025-02-18 13:33 | Outpatient (CLI) | payer MEDICARE, SELFPAY ==
--- NOTE | ~2025-02-18 | CT_ITS ---
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 Technique: Axial images obtained of the brain with intravenous contrast. One or more of the following dose reduction techniques were used: automated exposure control, adjustment of the mA and/or kV according to patient size, use of iterative reconstruction technique. Findings: No acute infarct or parenchymal hemorrhage. No abnormal enhancement is identified No abnormal mass or mass effect. No midline shift. No extra-axial fluid collections. No hydrocephalus. Mastoid air cells unremarkable. Sinuses and orbits unremarkable. No acute fracture. No significant facial or scalp soft tissue swelling evident. No radiopaque foreign body is seen. Impression: 1.No acute intracranial abnormality. Reviewed, dictated and finalized at location P. 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
[2025-02-18 13:54] LABS: Estimated Glomerular Filt Rate > 60
== END 2025-02-18 13:34 | disposition home or self-care (01) ==
PROVIDERS: PCP Nurse Practitioner; Visit Provider Nurse Practitioner
DX: R51.9 Headache, unspecified (principal)
CPT/HCPCS: 70460; Q9967

== ENCOUNTER 2025-03-09 15:06 | Outpatient (CLI) | payer MEDICARE, SELFPAY ==
--- NOTE | ~2025-03-09 | CT_ITS ---
EXAMINATION: CT pelvis wo con COMPARISON: None HISTORY: Left lower quadrant pain TECHNIQUE: Axial images were obtained without IV contrast. Sagittal, coronal reconstruction images were obtained from the axial views. CT scan performed using dose optimization techniques including the following automated exposure control; adjustment of mA and/or kV; use of iterative reconstruction technique. Automatic exposure control was used to reduce radiation dose. Permanent radiation dose record is archived to PACS. FINDINGS: The soft tissues appear unremarkable. No sclerotic or lytic lesions. Minimal degenerative changes. No aneurysm or lymphadenopathy is identified. There are stents noted in the common iliac veins. The bladder appears unremarkable. The uterus is atrophic. There is no adnexal mass. No free fluid. Moderate fecal content with moderate diverticulosis, no colitis or diverticulitis. The appendix is not identified. Mesentery and small bowel appear normal. IMPRESSION: 1. No etiology to explain the patient's left lower quadrant pain Reviewed, dictated and finalized at location P. E OIL PUMPER
== END 2025-03-09 15:07 | disposition home or self-care (01) ==
LOC: MICIMG 15:08
PROVIDERS: PCP Nurse Practitioner; Visit Provider Surgery
DX: R10.32 Left lower quadrant pain (principal)
CPT/HCPCS: 72192